=== PATIENT | male | born 1945 | race Caucasian/White ===

== ENCOUNTER → 2016-12-13 | Outpatient (CLI) | payer MEDICARE, BC | END | disposition home or self-care (01) | LOC: GRHH 14:32 | PROVIDERS: ATTEND Internal Medicine Nephrology | DX: N17.9 Acute kidney failure, unspecified (principal); N18.9 Chronic kidney disease, unspecified ==

== ENCOUNTER → 2016-12-15 | Outpatient (CLI) | payer MEDICARE | LOC: LAB.O 12-05 10:54 | PROVIDERS: ATTEND Internal Medicine Nephrology | DX: N18.4 Chronic kidney disease, stage 4 (severe) (principal) ==

== ENCOUNTER → 2017-03-27 | Outpatient (CLI) | payer MEDICARE ==
--- NOTE | 2017-03-27 17:01 | CT ---
EXAM DESCRIPTION: Abdomen/Pelvis w/o Contrast: Computed Tomography. CLINICAL HISTORY: Chronic prostatitis COMPARISON: None. TECHNIQUE: Spiral-axial scans 5.0 mm intervals through the abdomen and pelvis without oral or IV contrast. Coronal and sagittal 2.0 mm reconstructions. Total Exam DLP: 889.84 mGy-cm. This exam was performed according to our departmental CT dose-optimization program which includes automated exposure control, adjustment of the mA and/or kV according to patient size and/or use of iterative reconstruction technique; to reduce radiation dose to as low as reasonably achievable (ALARA). FINDINGS: Lung bases and pleura: Mosaic density in the lung bases with scarring in the inferior lingula. Liver, stomach, spleen, and adrenal glands: Right lobe of the liver is 19 cm craniocaudally. Diffuse low-density with no focal lesions. Calcifications in the liver and spleen. Spleen is not enlarged. Normal density and size of the adrenal glands. Stomach is unremarkable. Pancreas, Gallbladder, and Ducts: Gallbladder visualized. Fatty infiltration of the pancreas. Duct is negative. Kidneys and Ureters: Unremarkable. Pararenal fascial thickening is physiologic. Mesentery: no free fluid or free air. No significant mesenteric stranding. Aorta: Moderate atherosclerotic calcification more distally with narrowing of the lumen and the bilateral common iliac artery lumens proximally. Small Bowel: Mostly gas proximally but no significant distention. Radiodense material in different segments. No obstruction. Terminal Ileum/Cecum: Cecum distended by fecal material. TI is unremarkable. Appendix is not seen. Colon: Diffuse fecal matter diverticula in the descending colon and sigmoid. Minimal redundancy of the sigmoid. No complications. Pelvic Organs: Calcifications in the inferior prostate gland. There are calcifications in the mid gland. Impression on the base of the urinary bladder. No dominant pelvic lymph nodes or free fluid in the anterior peritoneal reflection. No radiodense stones in the urinary bladder. Spine and Bony Pelvis: Transitional vertebra is present in the a lumbarized S1 segment assuming that the most inferior rib pair is the 12th rib pair at T12 with rudimentary S1-2 disc. Minimal facet degeneration in the lumbar spine. Trace dextroscoliosis. Minimal bilateral hip joint space narrowing. Abdominal Wall/Back Soft Tissues: There is diffuse edema subcutaneous adipose tissue upper thighs abdomen and low back. Minimal diastases at the umbilicus but no bowel in the hernia. Bilateral fatty inguinal hernias not containing bowel. IMPRESSION: 1. Prostate gland is enlarged impressing on the base of the urinary bladder. Calcifications in the mid and inferior gland. No abnormal pelvic lymph nodes and no fluid in the anterior peritoneal reflection. 2. Mild to moderate hepatomegaly with fatty infiltration. This can be a result of obesity or a variety of metabolic and toxic conditions. Multiple small calcifications in the liver and spleen. 3. Moderate atherosclerotic calcification of the aorta with narrowing of the distal lumen. 4. Transitional lumbosacral segment is present to be a lumbarized S1. This can be confirmed with AP lateral images of the thoracic spine for rib counting purposes. 5. Diffuse subcutaneous adipose tissue edema. Bilateral fatty inguinal hernias not containing bowel. Electronically signed by: Ben Oseguera MD 03/27/2017 5:00 PM BRAKE PRESS OPERATOR
== END | disposition home or self-care (01) ==
LOC: CT 11:00
PROVIDERS: ATTEND Urology
DX: N41.1 Chronic prostatitis (principal); N39.46 Mixed incontinence

== ENCOUNTER → 2017-04-25 | Outpatient (CLI) | payer MEDICARE | LOC: LAB.O 13:07 | PROVIDERS: ATTEND Psychiatry & Neurology Neurology | DX: M45.0 Ankylosing spondylitis of multiple sites in spine (principal); M15.0 Primary generalized (osteo)arthritis; M81.8 Other osteoporosis without current pathological fracture; R53.83 Other fatigue; E11.9 Type 2 diabetes mellitus without complications; M33.90 Dermatopolymyositis, unspecified, organ involvement unspecified; F81.9 Developmental disorder of scholastic skills, unspecified; M79.A9 Nontraumatic compartment syndrome of other sites; M10.9 Gout, unspecified; E03.9 Hypothyroidism, unspecified; G60.3 Idiopathic progressive neuropathy; M35.1 Other overlap syndromes; M79.1 Myalgia; M35.3 Polymyalgia rheumatica; M33.22 Polymyositis with myopathy; G61.81 Chronic inflammatory demyelinating polyneuritis; M54.13 Radiculopathy, cervicothoracic region; M54.16 Radiculopathy, lumbar region; I73.00 Raynaud's syndrome without gangrene; G25.89 Other specified extrapyramidal and movement disorders; M06.9 Rheumatoid arthritis, unspecified; D86.9 Sarcoidosis, unspecified; M35.00 Sjogren syndrome, unspecified; M32.10 Systemic lupus erythematosus, organ or system involvement unspecified; I77.9 Disorder of arteries and arterioles, unspecified ==

== ENCOUNTER → 2017-05-21 | Outpatient (CLI) | payer MEDICARE | LOC: SL 20:20 | PROVIDERS: ATTEND Internal Medicine | DX: G47.33 Obstructive sleep apnea (adult) (pediatric) (principal) ==

== ENCOUNTER → 2017-06-08 | Outpatient (CLI) | payer MEDICARE | LOC: LAB.O 13:49 | PROVIDERS: ATTEND Psychiatry & Neurology Neurology | DX: G70.00 Myasthenia gravis without (acute) exacerbation (principal); G72.9 Myopathy, unspecified; G60.3 Idiopathic progressive neuropathy; I77.9 Disorder of arteries and arterioles, unspecified; D64.9 Anemia, unspecified; R53.83 Other fatigue; M79.A9 Nontraumatic compartment syndrome of other sites; R51 Headache ==

== ENCOUNTER → 2018-01-27 | Day surgery (SDC) | payer MEDICARE ==
[~2018-01-27] MED LIST: BRIMONIDINE 0.2% OPHTH DROPS RIGHT_EYE ONE; DEXAMETHASONE 0.1% OPHTH SOL 1 DROP RIGHT_EYE ONE; LIDOCAINE 1% MPF 5 ML VIAL INJ ONE; MIDAZOLAM INJ 2 MG/2 ML VIAL ONE; PROPARACAINE 0.5% OPHTH SOL 15 ML BTTL ONE; TOBRAMYCIN SULF 0.3 % OPHT SOL 1 DROP RIGHT_EYE ONE; TROP 1%/CYCLOPEN 1%/PHENYL 2% DROPS ONE
== END ==
LOC: AMB 05:35
PROVIDERS: ATTEND Ophthalmology
DX: G25.9 Extrapyramidal and movement disorder, unspecified (principal); I10 Essential (primary) hypertension; I48.91 Unspecified atrial fibrillation; G62.9 Polyneuropathy, unspecified; E66.9 Obesity, unspecified
CPT/HCPCS: 00142; 66984; J2250

== ENCOUNTER → 2018-01-29 | Outpatient (CLI) | payer MEDICARE ==
--- NOTE | 2018-02-03 07:26 | MRI ---
EXAM: Lumbar Spine w/o Contrast CLINICAL HISTORY: M51.15 COMPARISON STUDY: None TECHNICAL: Noncontrast MRI images of the lumbar spine were performed in multiple planes and multiple sequences. IV contrast was not given. FINDINGS: There is a 3 mm retrolisthesis of L2 on L3. There are 6 lumbar type vertebral bodies in the last is thought to be S1. There is no fracture. There are no bone marrow signal changes to indicate edema or inflammation. The conus medullaris has a normal configuration. L1-2: No disc herniation, canal stenosis or neurologic impingement. There are mild degenerative changes of facets. L2-3: 3 mm spondylolisthesis. Minimal central annular bulge. Disc protrusions extend laterally into each exiting foramina 3 or 4 mm. The nerve roots exit above the disc protrusions without visible impingement. There are moderate degenerative changes of facets with fluid in both facet joints. L3-4 and L4-5 show mild diffuse annular bulges and 3-4 mm lateral disc protrusions that do not compress the exiting nerve roots. There are moderate degenerative changes of the facets and moderate ligamentum flavum hypertrophy. L5-S1: No disc herniation, canal stenosis or neurologic impingement. Degenerative changes of facets are present with fluid in the left facet. IMPRESSION: 1. No extruded disc herniation, canal stenosis or neurologic impingement at any level. 2. 3 mm retrolisthesis of L2-3. 3. 3 to 4 mm lateral disc protrusions at most levels do not cause visible impingement of the nerve roots. 4. Moderate degenerative changes of the facets. Electronically signed by: Chris Alonzo MD 02/03/2018 7:25 AM MICROSTRATEGY DEVELOPER
== END ==
LOC: MRI 12:00
PROVIDERS: ATTEND Psychiatry & Neurology Neurology
DX: M51.16 Intervertebral disc disorders with radiculopathy, lumbar region (principal)

== ENCOUNTER 2018-02-10 05:48 | Day surgery (SDC) | payer MEDICARE ==
[2018-02-10] MEDS ORDERED: TROP 1%/CYCLOPEN 1%/PHENYL 2% DROPS ONE (10:47)
[2018-02-10] MEDS ORDERED: PROPARACAINE 0.5% OPHTH SOL 15 ML BTTL ONE (10:47)
[2018-02-10] MEDS ORDERED: MIDAZOLAM INJ 2 MG/2 ML VIAL ONE (11:25)
[2018-02-10] MEDS ORDERED: LIDOCAINE 1% MPF 5 ML VIAL INJ ONE (12:31)
[2018-02-10] MEDS ORDERED: BRIMONIDINE 0.2% OPHTH DROPS LEFT_EYE ONE (12:32)
[2018-02-10] MEDS ORDERED: TOBRAMYCIN SULF 0.3 % OPHT SOL 1 DROP LEFT_EYE ONE (12:32)
[2018-02-10] MEDS ORDERED: DEXAMETHASONE 0.1% OPHTH SOL 1 DROP LEFT_EYE ONE (12:32)
== END 2018-02-10 13:25 | disposition home or self-care (01) ==
LOC: AMB 05:48
PROVIDERS: ATTEND Ophthalmology
DX: H25.12 Age-related nuclear cataract, left eye (principal); I48.91 Unspecified atrial fibrillation; I10 Essential (primary) hypertension; E66.9 Obesity, unspecified; I89.0 Lymphedema, not elsewhere classified; N41.1 Chronic prostatitis; Z87.891 Personal history of nicotine dependence
CPT/HCPCS: 00142; 66984; J2250

== ENCOUNTER → 2018-08-27 | Outpatient (CLI) | payer MEDICARE | LOC: GMAM 14:37 → EDSTATUS 15:31 | PROVIDERS: ATTEND Family Medicine | DX: E53.8 Deficiency of other specified B group vitamins (principal); D50.9 Iron deficiency anemia, unspecified; E29.1 Testicular hypofunction; I10 Essential (primary) hypertension; E55.9 Vitamin D deficiency, unspecified ==

== ENCOUNTER 2018-11-07 19:43 | Emergency (ER) | payer MEDICARE ==
[2018-11-07 21:32] VITALS: O2SAT 96
[2018-11-07 23:26] VITALS: BP 109/68; TEMP 97.4
== END 2018-11-07 23:15 | disposition home or self-care (01) ==
LOC: ER 19:43
DX: E87.1 Hypo-osmolality and hyponatremia (principal); E87.5 Hyperkalemia; R33.9 Retention of urine, unspecified; J44.9 Chronic obstructive pulmonary disease, unspecified; I48.91 Unspecified atrial fibrillation; I50.9 Heart failure, unspecified; I11.0 Hypertensive heart disease with heart failure; Z87.891 Personal history of nicotine dependence; Z79.899 Other long term (current) drug therapy

== ENCOUNTER 2018-11-12 10:55 | Inpatient (IN) | payer MEDICARE ==
[2018-11-12] MEDS ORDERED: SOD CHL 3% *HYPERTONIC* 500ML 200 ML IVS ONE (11:11)
[2018-11-12] MEDS ORDERED: MAGNESIUM SULFATE PREMIX 2GM 2 GM in PREMIX BAG 1 BAG IVPB ONE (11:13)
[2018-11-12] MEDS ORDERED: MAGNESIUM SULFATE PREMIX 2GM 50 ML IVPB ONE (11:15)
--- NOTE | 2018-11-12 11:30 | ED.PDOC ---
History of Present Illness - General Chief Complaint: General Stated Complaint: Abnormal lab values Time Seen by Provider: 11/12/18 11:00 Source: patient, family Exam Limitations: no limitations - History of Present Illness Initial Comments: the patient is a 73-year-old male presenting to the emergency room secondary to persistent hyponatremia. He is largely asymptomatic from it at this point. He was seen here Saturday for the same issue however we were unable to obtain IV access after multiple attempts. He deferred further attempts and elected to attempt correction as an outpatient with diuresis and reduction in his gabapentin dosage as well as a reduction in his bladder spasm medication to allow him to urinate better. Sodium is persistently low today so he was sent over for admission and correction.he does report an improvement in his urination. He is able to urinate a lot larger quantities on the lower dose of his bladder spasm medication. He does still have chronic persistent 3+ lower extremity edema. No new symptoms however. Timing/Duration: unsure - probably several months duration Severity: moderate Improving Factors: nothing Worsening Factors: nothing Associated Symptoms: malaise - chronic, weakness - chronic Allergies/Adverse Reactions: Allergies NO KNOWN ALLERGY Allergy (Verified 02/10/18 13:28) Home Medications: Ambulatory Orders Arformoterol Tartrate Nebs [Brovana Nebs] 15 mcg NEB BID 11/07/18 Cephalexin Monohydrate [Keflex] 500 mg PO BEDTIME 11/07/18 Cholecalciferol [Decara] 50,000 unit PO WKLY 11/07/18 Dabigatran Etexilate Mesylate [Pradaxa] 150 mg PO BID 11/07/18 Diltiazem HCl Coated Beads [Cartia Xt] 240 mg PO DAILY 11/07/18 Dutasteride-Tamsulosin HCl [Jessie] 1 cap PO DAILY 11/07/18 Ferrous Sulfate 325 mg PO DAILY 11/07/18 Fluticasone Prop 0.05% Nasal [Flonase Nasal Mcdougal] 50 mcg NA BID 11/07/18 Furosemide Tab [Lasix Tab] 40 mg PO DAILY #5 tab 11/07/18 Gabapentin 300 mg PO Q8HR #90 cap 11/07/18 Gabapentin [Neurontin] 800 mg PO TID 11/07/18 Ibuprofen [Ibu] 400 mg PO PRN 11/07/18 Methadone HCl [Methadone] 20 mg PO BID 11/07/18 Mirabegron [Myrbetriq] 25 mg PO DAILY #30 tab 11/07/18 Mirabegron [Myrbetriq] 50 mg PO DAILY 11/07/18 Nifedipine [Procardia Xl] 90 mg PO DAILY 11/07/18 Oxycodone HCl [Oxycodone HCl ER] 240 mg PO DAILY 11/07/18 Potassium Chloride Tab [K-Dur] 20 meq PO BID 11/07/18 Simvastatin [Zocor] 20 mg PO DAILY 11/07/18 Tizanidine HCl [Zanaflex] 2 mg PO QID 11/07/18 Review of Systems - Review of Systems Constitutional: States: malaise EENTM: States: no symptoms reported Respiratory: States: no symptoms reported Cardiology: States: no symptoms reported Gastrointestinal/Abdominal: States: no symptoms reported Genitourinary: States: see HPI Musculoskeletal: States: back pain - chronic back pain Skin: States: no symptoms reported Neurological: States: other - chronic depression and peripheral neuropathy Endocrine: States: no symptoms reported All other Systems: No Change from Baseline Past Medical History (General) - Patient Medical History Hx Stroke: No Hx of COPD: Yes Hx Cardiac Disorders: Yes - A-fib, arrhythmias Hx Congestive Heart Failure: Yes Hx Hypertension: Yes Hx Diabetes: No Surgical History: tonsillectomy - Vaccination History Hx Tetanus, Diphtheria Vaccination: No Hx Influenza Vaccination: No Hx Pneumococcal Vaccination: No - Social History Hx Tobacco Use: Yes Hx Alcohol Use: Yes - every other day Family Medical History - Family History Mother Hx Family Congestive Heart Failure: Yes Father Hx Family Cancer: Yes - lung Physical Exam - Physical Exam General Appearance: Alert, Comfortable, Frail, No apparent distress Eye Exam: bilateral normal Ears, Nose, Throat: hearing grossly normal - chronically decreased bilaterally, normal pharynx Neck: full range of motion, supple Respiratory: lungs clear, normal breath sounds, no respiratory distress, no ac cessory muscle use Cardiovascular/Chest: normal peripheral pulses, other - regular rate Peripheral Pulses: radial,right: 2+, radial,left: 2+, dorsalis pedis,right: 2+, dorsalis pedis,left: 2+ Gastrointestinal/Abdominal: non tender - morbidly obese, soft Rectal Exam: deferred Back Exam: other - no evidence of acute trauma but he does have chronic lower back discomfort palpation diffusely Extremity: normal range of motion - limited by edema, non-tender, pedal edema - 3+ to bilateral lower extremities with some weeping areas Neurologic: hide shaker II-XII nml as tested, alert, normal mood/affect, oriented x 3, other - chronic peripheral neuropathy Skin Exam: other - chronic stasis dermatitis changes from weeping peripheral neuropathy to bilateral lower extremities. Comments: Vital Signs - 24 hr 11/12/18 11:00 Temperature 96.9 F L Pulse Rate [ 71 Left Radial] Respiratory 20 Rate Blood Pressure 101/69 [Left Arm] O2 Sat by Pulse 98 Oximetry Progress - Progress Progress: 11/12/18 11:35 the patient is a 73-year-old male presenting to emergency room with significant long-standing hyponatremia. This is likely multifactorial. He has failed outpatient diuresis. This does appear to be a mildly hypervolemic hypo- osmolar hyponatremia. Due to failure to correct with gentle diuresis, the patient is going to be admitted for correction slowly with 3% saline. He will need to have labs checked after the first 200 cc. It may be beneficial as well to check a magnesium level, cortisol level and a TSH at that time. Continue telemetry monitoring. He did have some significant urinary retention at his visit last week. This appears to be improved with a lower dose of his bladder spasm medication. His urine output does need to be followed. We did also reduce the gabapentin to 300 mg 3 times a day on Saturday in an attempt to help reduce his peripheral edema. he does have at least 5 or 6 other medications that may be contributing to his peripheral edema. He will need compression wraps to the lower extremities several times a day to help reduce edema as well. Admit for continued care. 11/12/18 11:40 cassandra navarro billing number [id number] - Results/Orders Results/Orders: glucose is 106. BUN is 15. Creatinine is 0.8. Sodium is 117. Chloride is 86. Bicarbonate is 18. Calcium is 8.7. Albumin is 3.4. globulin is 3.2. Liver function tests are within normal limits. White blood cell counts 8.1. H&H are 13 and 36 respectively. Platelets are 254. Departure - Departure Clinical Impression: Hyponatremia with decreased serum osmolality, Urinary retention, Peripheral edema Disposition: Admit Patient Condition: Fair Departure Forms: ED Discharge - Pt. Copy, Patient Portal Self Enrollment Diet: low salt diet Referrals: Chilango Navarro MD [Primary Care Provider] - 1-2 Weeks Home Medications: Ambulatory Orders Arformoterol Tartrate Nebs [Brovana Nebs] 15 mcg NEB BID 11/07/18 Cephalexin Monohydrate [Keflex] 500 mg PO BEDTIME 11/07/18 Cholecalciferol [Decara] 50,000 unit PO WKLY 11/07/18 Dabigatran Etexilate Mesylate [Pradaxa] 150 mg PO BID 11/07/18 Diltiazem HCl Coated Beads [Cartia Xt] 240 mg PO DAILY 11/07/18 Dutasteride-Tamsulosin HCl [Jessie] 1 cap PO DAILY 11/07/18 Ferrous Sulfate 325 mg PO DAILY 11/07/18 Fluticasone Prop 0.05% Nasal [Flonase Nasal Mcdougal] 50 mcg NA BID 11/07/18 Furosemide Tab [Lasix Tab] 40 mg PO DAILY #5 tab 11/07/18 Gabapentin 300 mg PO Q8HR #90 cap 11/07/18 Gabapentin [Neurontin] 800 mg PO TID 11/07/18 Ibuprofen [Ibu] 400 mg PO PRN 11/07/18 Methadone HCl [Methadone] 20 mg PO BID 11/07/18 Mirabegron [Myrbetriq] 25 mg PO DAILY #30 tab 11/07/18 Mirabegron [Myrbetriq] 50 mg PO DAILY 11/07/18 Nifedipine [Procardia Xl] 90 mg PO DAILY 11/07/18 Oxycodone HCl [Oxycodone HCl ER] 240 mg PO DAILY 11/07/18 Potassium Chloride Tab [K-Dur] 20 meq PO BID 11/07/18 Simvastatin [Zocor] 20 mg PO DAILY 11/07/18 Tizanidine HCl [Zanaflex] 2 mg PO QID 11/07/18 Decision To Admit - Decistion To Admit Decision to Admit Reason: Medical Nature Decision to Admit Date: 11/12/18 Decision to Admit Time: 11:39
--- NOTE | 2018-11-12 12:42 | RAD ---
Study: Single Frontal Radiograph of the Chest. Indication:hyponatremia Comparison: January 25, 2012 Impression: Cardiomegaly with mild interstitial edema and central pulmonary vascular congestion. Lung volumes low. No consolidation, pleural effusion or pneumothorax. Calcified mediastinal granulomas suspected. No acute osseous abnormality. Electronically signed by: Abdoul Mckeon MD 11/12/2018 12:41 PM CDT
--- NOTE | 2018-11-12 12:43 | HP ---
SUPERVISING PHYSICIAN: Azar Le M.D. CHIEF COMPLAINT: Abnormal lab values. HISTORY OF PRESENT ILLNESS: This is a 73 year-old male patient who has a longstanding history of lymphedema and Chronic Inflammatory Demyelinating Polyneuropathy. He saw Dr. Rahman, neurologist, on this past and had some lab work done. On Saturday he was called and told to come to the Emergency Room due to his low sodium. He came to the Emergency Room and his sodium was 119. Multiple attempts to get an IV were started and he was to be admitted at that time, but he refused and left against medical advice because he did not want to have any more IV sticks. The lab work was repeated today and Dr. Fink, his primary care physician, called him with a sodium that was 117 and he was to come to the Emergency Room for a workup. In the Emergency Room he was given a small amount of hypertonic saline and then switched to normal saline. His treatment was based off of his lab that was done yesterday. His said he had been acting "off" for several days and had a difficult time remembering dates and events. He also had weakness and leg cramps. He did have a chest x- ray that showed cardiomegaly with mild interstitial edema and central pulmonary vascular congestion with low lung volumes. No consolidation, pleural effusion or pneumothorax. Calcified mediastinal granulomas are suspected and no acute osseous abnormality. He was then admitted to the floor for treatment of his hyponatremia. It is to be noted that he also said that earlier in the week he had a difficult time urinating but has not had problems in the last day or so and his urine volume is up. He does have a history of chronic prostatitis. PAST MEDICAL HISTORY: 1. Chronic inflammatory demyelinating polyneuropathy. 2. Lymphedema. 3. Chronic obstructive pulmonary disease. 4. Chronic prostatitis on Keflex daily. 5. Hypertension. 6. Chronic pain syndrome mostly due to his low back pain. 7. Atrial fibrillation that was diagnosed at age 21 status post ablation. 8. Spinal deterioration contributing to chronic pain syndrome. 9. 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 PAST SURGICAL HISTORY: 1. Tonsillectomy. 2. Bilateral cataract removal. 3. Bilateral knee replacement. 4. Cardiac ablation in 2016. 5. Multiple skin cancers removed from the nose and from the ear. OUTPATIENT MEDICATIONS: 1. Procardia. 2. Gabapentin. 3. Potassium chloride. 4. Simvastatin. 5. Fluticasone nasal spray. 6. Pradaxa. 7. Zanaflex. 8. Myrbetriq. 9. Keflex. 10. Jessie. 11. Ferrous sulfate. 12. Vitamin D. 13. Ibuprofen. 14. Methadone. 15. Oxycodone. 16. Fetzima which the patient has presently not been taking for several weeks but was recently decreased to 20 mg daily, but he has not started that. ALLERGIES: NO KNOWN DRUG ALLERGIES. SOCIAL HISTORY: He is . He has 1 child. He has a past history of cigarette smoking but he quit in 1984. He drinks alcoholic beverages several times weekly. He denies any illicit drug use. REVIEW OF SYSTEMS: GENERAL: Positive for fatigue. Negative for fever or weight changes. HEENT: Negative for sinus symptoms, ear pain, vision changes or sore throat. RESPIRATORY: Negative for coughing, wheezing or shortness of breath. CARDIAC: Negative for chest pain, palpitations or tachycardia. GASTROINTESTINAL: Negative for abdominal pain, nausea, vomiting, diarrhea or constipation. GENITOURINARY: Positive for some urinary retention but not as bad as last week. He also had a history of chronic prostatitis. Otherwise denies hematuria, polyuria or dysuria. MUSCULOSKELETAL: Positive for chronic back pain. Negative for arthralgias or myalgias. SKIN: Negative for lesions or rashes. NEUROLOGIC: Positive for peripheral neuropathy. Negative for seizures or headaches. PSYCHIATRIC: Positive for depression. Negative for anxiety. PHYSICAL EXAMINATION: VITAL SIGNS: Temperature 98, heart rate 74, blood pressure 115/74, respiratory rate 16, O2 sat 98% on room air. GENERAL: This is a 73 year-old male patient who is sitting in his chair in his hospital room. He is in no acute distress. HEENT: Normocephalic and atraumatic. Pupils are equal and reactive. Oropharynx is clear. NECK: Supple without mass. RESPIRATORY: Essentially clear to auscultation bilaterally. CHEST: There is equal rise and fall of the chest with inspiration and expiration. CARDIOVASCULAR: Regular rate and rhythm. GASTROINTESTINAL: Abdomen is soft, nondistended, non-tender. Bowel sounds are positive. EXTREMITIES: Bilateral pedal pulses are palpable at +2. He does have +2 pedal edema bilaterally. NEUROLOGIC: He is awake, alert and oriented times three. Cranial nerves II-XII are grossly intact. LABORATORY: Labs and films are as per the History of Present Illness. ASSESSMENT: 1. Hyponatremia most likely hypervolemic and hyperosmolar, otherwise of unknown etiology. It has progressively worsened over the last 4 to 5 days. 2. History of Chronic Inflammatory Demyelinating Polyneuropathy being treated by Dr. Rahman, neurologist. 3. Chronic obstructive pulmonary disease with no acute exacerbation. 4. Chronic pain syndrome on multiple narcotics managed by Dr. Fink. 5. Lymphedema of unknown etiology. 6. Hypertension. 7. Chronic prostatitis. 8. History of atrial fibrillation since he was in his 20s. He did have an ablation in 2016. 9. Peripheral neuropathy. PLAN: The patient has been admitted to the hospital. He will continue on normal saline overnight and I will recheck his labs in the morning. His home medications have been restarted with the following noted exceptions: He was originally on Gabapentin 900 mg 3 times daily and it was decreased on Saturday from the E. R. to 300 t.i.d. I have started it at 600 mg t.i.d. His original dosing of Myrbetriq at 50 mg will be continued. He is on Pradaxa for his atrial fibrillation which should also suffice for his DVT prophylaxis. He will get his Methadone scheduled twice daily and he will have his Oxycodone as needed as well as his Tizanidine will be as needed. I started him on a PPI for ulcer prophylaxis. I will not restart his Fetzima. He had been off the 40 mg for several weeks. Last he was to be restarted on it at 20 mg. He had not gotten his prescription filled so I will hold on that until he is discharged. Dr. Fink can start that in the outpatient setting. He is on the night monitor. He will also have neuro checks. He has seen Dr. Young, sleep technician, in the past and it may be helpful to see him as an outpatient. He is on several pulmonary nebulizer treatments but he does not presently take them. I have started him on p.r.n. and scheduled Xopenex and he can followup with Dr. Leyva, professional golf tournament player, for those medications, but he has had no complaints of breathing issues. Hopefully he can be discharged in the next 48 hours with close followup with Dr. Fink. #[id number] [facility]
[2018-11-12] MEDS ORDERED: LEVALBUTEROL NEBS 1.25 MG/3 ML VIAL INH PRN (12:49)
[2018-11-12] MEDS ORDERED: SODIUM CHLORIDE 0.9% (FLUSH) 10 ML SYG IV PRN (12:49)
[2018-11-12] MEDS ORDERED: ACETAMINOPHEN 325 MG TAB PO PRN (12:49)
[2018-11-12] MEDS ORDERED: ONDANSETRON INJ 4 MG/2 ML VIAL IV PRN (12:49)
[2018-11-12] MEDS ORDERED: IV SET AND CAP CHANGE INJ INJ SCH (13:00)
[2018-11-12] MEDS: LEVALBUTEROL NEBS 1.25 MG/3 ML VIAL INH SCH ×2 (16:38→22:47)
[2018-11-12] MEDS: SODIUM CHLORIDE 0.9% 1000ML 1,000 ML IVS PRN (17:52)
[2018-11-12] MEDS ORDERED: tiZANidine 4 MG TAB PO PRN (18:37)
[2018-11-12] MEDS ORDERED: IBUPROFEN 400 MG TAB PO PRN (18:37)
[2018-11-12] MEDS ORDERED: PANTOPRAZOLE SODIUM TAB 40 MG PO ONE (18:58)
[2018-11-12] MEDS ORDERED: DABIGATRAN ETEXILATE 75 MG CAP PO ONE (19:00)
[2018-11-12] MEDS: NON-FORMULARY MEDICATION 1 EA MIS (Dabigatran Etexilate Mesylate [Pradaxa] 150 MG) PO SCH (20:30)
[2018-11-12] MEDS: METHADONE HCL 10 MG TAB PO SCH (20:30)
[2018-11-12] MEDS: CEPHALEXIN MONOHYDRATE 500 MG CAP PO SCH (20:31)
[2018-11-12] MEDS: GABAPENTIN 300 MG CAP PO SCH (20:31)
[2018-11-12] MEDS: SODIUM CHLORIDE 0.9% (FLUSH) 10 ML SYG IV SCH (20:32)
[2018-11-13] MEDS: SODIUM CHLORIDE 0.9% 1000ML 1,000 ML IVS PRN ×3 (01:53→23:22)
[2018-11-13] MEDS: PANTOPRAZOLE SODIUM TAB 40 MG PO SCH (05:45)
[2018-11-13] MEDS ORDERED: HYDROCORT 2.5% CRM (ANUSOL HC) 30 GM TUBE PR PRN (06:13)
[2018-11-13] MEDS ORDERED: MAGNESIUM SULFATE PREMIX 2GM 2 GM in PREMIX BAG 1 BAG IVPB ONE ×2 (09:24→21:14)
[2018-11-13] MEDS: METHADONE HCL 10 MG TAB PO SCH ×2 (09:32→20:20)
[2018-11-13] MEDS: NIFEdipine XL 90 MG TAB PO SCH (09:32)
[2018-11-13] MEDS: GABAPENTIN 300 MG CAP PO SCH ×3 (09:32→20:19)
[2018-11-13] MEDS: LEVALBUTEROL NEBS 1.25 MG/3 ML VIAL INH SCH ×4 (09:35→19:21)
[2018-11-13] MEDS: POLYETHYLENE GLYCOL 3350 17 GM PCKT PO SCH (09:43)
[2018-11-13] MEDS: SODIUM CHLORIDE 0.9% (FLUSH) 10 ML SYG IV SCH ×2 (09:43→20:20)
[2018-11-13] MEDS ORDERED: MAGNESIUM SULFATE PREMIX 2GM 50 ML IVPB ONE ×2 (09:58→21:28)
[2018-11-13] MEDS: DUTASTERIDE 0.5 MG CAP PO SCH (10:14)
[2018-11-13] MEDS: DABIGATRAN ETEXILATE 75 MG CAP PO SCH ×2 (10:14→20:19)
[2018-11-13] MEDS: TAMSULOSIN 0.4 MG CAP PO SCH (10:15)
[2018-11-13] MEDS: (Mirabegron [Myrbetriq] 25 MG) PO SCH (13:11)
[2018-11-13] MEDS: NON-FORMULARY MEDICATION 1 EA MIS (Dabigatran Etexilate Mesylate [Pradaxa] 150 MG) PO SCH (13:15)
[2018-11-13] MEDS ORDERED: FUROSEMIDE INJ 40 MG/4 ML VIAL ONE (14:30)
[2018-11-13] MEDS: FUROSEMIDE INJ 40 MG/4 ML VIAL IV SCH (14:33)
--- NOTE | 2018-11-13 17:09 | PN ---
DATE: 11/13/18 SUPERVISING PHYSICIAN: Azar Le M.D. SUBJECTIVE: The patient is sitting up in his chair in his room. He has no complaints other than he would like to go home. We discussed the need for his sodium to get somewhat higher. He realized he needs to be on a fluid restriction and we would recheck his lab in the afternoon to make sure it is improving. OBJECTIVE: VITAL SIGNS: Temperature 98.2, heart rate 75, blood pressure 120/86, respiratory rate 18, O2 sat 97% on 3 liters nasal cannula. I's and O's show an oral intake of only 730 mL with an 830 mL positive I and O. RESPIRATORY: Essentially clear to auscultation bilaterally. CARDIAC: Regular rate and rhythm. GASTROINTESTINAL: Abdomen is soft, nondistended, non-tender. Bowel sounds are positive. EXTREMITIES: +2 to 3 pedal edema to his lower extremities. Bilateral pedal pulses are palpable at +2. NEUROLOGIC: He is awake, alert and oriented times three. LABORATORY: WBC is 6, hemoglobin 14.2, hematocrit 43.1. Sodium is slightly improved to 121 with potassium 4.3, chloride 90, carbon dioxide 18, serum osmolality is 243.1. Cortisol is pending. All other labs and films have been reviewed via the EMR. ASSESSMENT: 1. Hyponatremia most likely hypervolemic and hyperosmolar, otherwise of unknown etiology. It has progressively worsened over the last 4 to 5 days. 2. History of Chronic Inflammatory Demyelinating Polyneuropathy being treated by Dr. Rahman, neurologist. 3. Chronic obstructive pulmonary disease with no acute exacerbation. 4. Chronic pain syndrome on multiple narcotics managed by Dr. Fink. 5. Lymphedema of unknown etiology. 6. Hypertension. 7. Chronic prostatitis. 8. History of atrial fibrillation since he was in his 20s. He did have an ablation in 2016. 9. Peripheral neuropathy. PLAN: We will continue present supportive care. He will continue with normal saline and I have given him some magnesium supplementation. His BMP and magnesium will be rechecked this afternoon. Hopefully I can discontinue his saline. I have attempted to call Dr. Young, pet care attendant, to get his recommendations on the patient's plan of care but I have been unable to reach him. I will attempt to call him later this afternoon. I will also give him an extra dose of Lasix and recheck his lab and chest x-ray in the morning. Hopefully he can be discharged once his sodium gets close to 125 with a close followup with Dr. Fink, which he has an appointment on 11/17/18. He will need to see Dr. Young as a consultation after discharge. Will continue to monitor closely and follow as needed. #[id number] [facility]
[2018-11-13] MEDS ORDERED: SIMVASTATIN 20 MG TAB ONE (18:57)
[2018-11-13] MEDS: CEPHALEXIN MONOHYDRATE 500 MG CAP PO SCH (20:19)
[2018-11-13] MEDS ORDERED: SIMVASTATIN 20 MG TAB PO SCH (21:00)
[2018-11-13] MEDS ORDERED: POTASSIUM CHLORIDE 20 MEQ TAB PO ONE (21:14)
[2018-11-14] MEDS: PANTOPRAZOLE SODIUM TAB 40 MG PO SCH (06:17)
--- NOTE | 2018-11-14 06:55 | RAD ---
CHEST, TWO VIEWS, XR. 11/14/2018 6:52 AM CDT CLINICAL HISTORY: Hyponatremia. COMPARISON: Chest 11/12/2018 TECHNIQUE: Frontal and lateral chest FINDINGS: The heart is normal in size. There are bulky right hilar calcified masses compatible with remote granulomatous disease. Faint small curvilinear left basilar densities due to atelectasis. No consolidation or edema. No pleural fluid. Unremarkable soft tissues and bones. IMPRESSION: 1. Minimal left basilar atelectasis. No new acute finding. 2. Old granulomatous disease. Electronically signed by: Gertrude Ramon DO 11/14/2018 6:54 AM CDT
[2018-11-14] MEDS: LEVALBUTEROL NEBS 1.25 MG/3 ML VIAL INH SCH ×3 (08:18→16:35)
[2018-11-14] MEDS: FUROSEMIDE INJ 40 MG/4 ML VIAL IV SCH (09:33)
[2018-11-14] MEDS: NIFEdipine XL 90 MG TAB PO SCH (09:34)
[2018-11-14] MEDS: DABIGATRAN ETEXILATE 75 MG CAP PO SCH (09:34)
[2018-11-14] MEDS: GABAPENTIN 300 MG CAP PO SCH ×2 (09:34→15:29)
[2018-11-14] MEDS: POLYETHYLENE GLYCOL 3350 17 GM PCKT PO SCH (09:34)
[2018-11-14] MEDS: DUTASTERIDE 0.5 MG CAP PO SCH (09:35)
[2018-11-14] MEDS: (Mirabegron [Myrbetriq] 25 MG) PO SCH (09:35)
[2018-11-14] MEDS: METHADONE HCL 10 MG TAB PO SCH (09:35)
[2018-11-14] MEDS: TAMSULOSIN 0.4 MG CAP PO SCH (09:35)
[2018-11-14] MEDS: SODIUM CHLORIDE 0.9% (FLUSH) 10 ML SYG IV SCH (09:39)
--- NOTE | 2018-11-14 12:04 | CT ---
EXAM DESCRIPTION: Chest w/o Contrast CLINICAL HISTORY: 73 years Male, hyponatremia COMPARISON: Chest x-ray dated 14 November 2018 TECHNIQUE: Transaxial images were obtained without intravenous contrast media. Sagittal and coronal reconstruction was performed.This exam was performed according to our departmental dose-optimization program, which includes automated exposure control, adjustment of the mA and/or kV according to patient size and/or use of iterative reconstruction technique. FINDINGS: The thyroid is normal in appearance. No pathologic axillary adenopathy is observed. Calcified lymph nodes are seen scattered about the mediastinum and hilar regions. No pathologic adenopathy is seen. No pleural fluid is identified. No adrenal masses are detected. Minimal basilar interstitial fibrosis is observed. No pulmonary nodule or mass is detected. No bone abnormality is seen. IMPRESSION: Scattered calcified granulomas are observed about the hilar and mediastinal regions. The chest is otherwise unremarkable. Electronically signed by: Dvaid Ye MD 11/14/2018 12:02 PM CDT
[2018-11-14] MEDS: FUROSEMIDE INJ 20 MG/2 ML VIAL IV SCH ×2 (15:29→18:00)
--- NOTE | 2018-11-14 17:07 | PN ---
DATE: 11/14/18 SUPERVISING PHYSICIAN: Azar Le M.D. SUBJECTIVE: The patient still has a significantly low sodium. He has not had any nausea or vomiting. Again, we did discuss treatment and the plan of care, that the patient should remain in the hospital until at least his sodium is greater than 126. Although reluctant to stay in the hospital, the patient agrees to the treatment plan. OBJECTIVE: VITAL SIGNS: Temperature 97.7, pulse 63, blood pressure 127/75, respirations 18, satting 99% on room air. I's and O's show a positive balance of 3760. Weight 114.2 kg. GENERAL: The patient is resting comfortably. Appears to be in no distress and just finished a breathing treatment. CHEST: Lungs were clear to auscultation. HEART: Regular rate and rhythm. ABDOMEN: Soft, non-tender. Positive bowel sounds. EXTREMITIES: Shows extreme lymphedema bilaterally with pulses palpable at 2+. No signs of an outright infection. NEUROLOGIC: He is alert and oriented times three. LABORATORY: CBC shows a white count of 4,800, hemoglobin 12, hematocrit 35.4, platelet count 189,000. Differential shows to be without a left shift. Chemistries show sodium 121, potassium 3.7, carbon dioxide 19, BUN 8, creatinine 0.54, serum osmolality 241. Urine osmolality is pending. Urine sodium is pending. Total cortisol was normal at 18. TSH and T4 were both normal. Magnesium was low at 1.7. RADIOLOGY: CT of the chest per radiology interpretation shows scattered calcified granulomas observed about the hilar and mediastinal regions. The chest showed to be unremarkable. ASSESSMENT: 1. Hyponatremia most likely hyponatremia with a hypervolemic and hyperosmolar presentation, uncertain etiology, but more likely related to chronic lymphedema showing progressively worsened over the last 4 to 5 days requiring more aggressive management with IV Lasix and fluid restrictions to correct underlying hyponatremia with the patient currently not being symptomatic. 2. History of Chronic Inflammatory Demyelinating Polyneuropathy followed by Dr. Rahman, neurologist. 3. Chronic obstructive pulmonary disease with no acute exacerbation. 4. Chronic pain syndrome on multiple narcotics managed by Dr. Fink. 5. Lymphedema of unknown etiology. 6. Hypertension. 7. Chronic prostatitis. 8. History of atrial fibrillation since he was in his 20s. He did have an ablation in 2016. 9. Peripheral neuropathy. PLAN: Will continue to follow the patient's labs as we give him Lasix every 6 hours at 20 mg[address] After talking with Dr[address] Young, he recommended we diurese him off fairly aggressively and continue with IV fluids to include normal saline at 125 an hour. Once the patient is showing improvement with at least a sodium greater than 125 to 126, hopefully will transition to outpatient management. Will continue to follow his output. He does remain on DVT prophylaxis as per protocol. Until we can transition to outpatient management will continue to monitor and treat as needed. #[id number] [facility]
[2018-11-14 19:33] VITALS: BP 112/71; TEMP 98; O2SAT 96
--- NOTE | 2018-11-15 22:00 | DS ---
SUPERVISING PHYSICIAN: Azar Le M.D. ADMISSION DIAGNOSIS: 1. Hyponatremia most likely hypervolemic and hyperosmolar, otherwise of unknown etiology. It has progressively worsened over the last 4 to 5 days. 2. History of Chronic Inflammatory Demyelinating Polyneuropathy being treated by Dr. Rahman, neurologist. 3. Chronic obstructive pulmonary disease with no acute exacerbation. 4. Chronic pain syndrome on multiple narcotics managed by Dr. Fink. 5. Lymphedema of unknown etiology. 6. Hypertension. 7. Chronic prostatitis. 8. History of atrial fibrillation since he was in his 20s. He did have an ablation in 2016. 9. Peripheral neuropathy. DISCHARGE DIAGNOSIS: 1. Hyponatremia likely due to hypervolemia and hyperosmolar presentation probably with a component secondary to chronic lymphedema then progressively worsened prior to admission but showing response to Lasix and fluid restrictions. 2. History of Chronic Inflammatory Demyelinating Polyneuropathy followed by Dr. Rahman, neurologist. 3. Chronic obstructive pulmonary disease with no acute exacerbation. 4. Chronic pain syndrome on multiple narcotics managed by Dr. Fink. 5. Lymphedema of unknown etiology. 6. Hypertension. 7. Chronic prostatitis. 8. History of atrial fibrillation since he was in his 20s. He did have an ablation in 2016. 9. Peripheral neuropathy. REASON FOR HOSPITALIZATION: This is a 73 year-old male patient who has a longstanding history of lymphedema and Chronic Inflammatory Demyelinating Polyneuropathy. He saw Dr. Rahman, neurologist, on this past and had some lab work done. On Saturday he was called and told to come to the Emergency Room due to his low sodium. He came to the Emergency Room and his sodium was 119. Multiple attempts to get an IV were started and he was to be admitted at that time, but he refused and left against medical advice because he did not want to have any more IV sticks. The lab work was repeated today and Dr. Fink, his primary care physician, called him with a sodium that was 117 and he was to come to the Emergency Room for a workup. In the Emergency Room he was given a small amount of hypertonic saline and then switched to normal saline. His treatment was based off of his lab that was done yesterday. His said he had been acting "off" for several days and had a difficult time remembering dates and events. He also had weakness and leg cramps. He did have a chest x- ray that showed cardiomegaly with mild interstitial edema and central pulmonary vascular congestion with low lung volumes. No consolidation, pleural effusion or pneumothorax. Calcified mediastinal granulomas are suspected and no acute osseous abnormality. He was then admitted to the floor for treatment of his hyponatremia. It is to be noted that he also said that earlier in the week he had a difficult time urinating but has not had problems in the last day or so and his urine volume is up. He does have a history of chronic prostatitis. LABORATORY STUDIES: White count on admission was 6,000, at discharge was 4,800. Hemoglobin and hematocrit were showing to be at 12 and 35.4 respectively with platelet count 189,000. Differential was without a left shift. Chemistries did show sodium initially of 121 on admission and at discharge was up to 122. BUN was 8, creatinine 0.54, serum osmolality was a little low at 246. TSH 3.53 with free T4 0.88. Total cortisol was 18.3. Urine osmolality was pending. Urine sodium was 37. MICROBIOLOGY: No microbiology specimens were submitted. RADIOLOGY: Chest x-ray initially on admission per radiology interpretation of a single view chest showed cardiomegaly with mild interstitial edema and central pulmonary vascular congestion. Lung volumes were low. No consolidations or pleural effusions were noted. He had a chest Ct on the morning of discharge and per radiology interpretation showed scattered calcified granulomas observed about the hilar and mediastinal regions. The chest was otherwise unremarkable. HOSPITAL COURSE: Mr. Banerjee was admitted for hyponatremia. He was put on diuretics and fluid restrictions and showed good response to treatment, although was felt to be close to his baseline levels of sodium. Dr. Young was consulted on admission and recommended that he followup with lymphedema clinic at [facility] in [place] which will be discussed at discharge on followup. The patient was very adamant about going home and after a lengthy discussion, recommendations were that the patient should probably stay another night and the patient was convinced that he was okay to go home. I called Dr. Fink and discussed the case with Dr. Fink and it was felt that if the patient was truly stable then if he was adamant about going home he could go home to have followup with home health as well as repeat laboratory studies. He was discharged home with continued Lasix and fluid restrictions. He was showing to be stable on day of discharge. PHYSICAL EXAMINATION: VITAL SIGNS: Temperature 97.7, pulse 63, blood pressure 127/75, respirations 18, satting 99% on room air. I's and O's show a positive balance of 3760. Weight 114.2 kg. GENERAL: The patient is resting comfortably. Appears to be in no distress and just finished a breathing treatment. CHEST: Lungs were clear to auscultation. HEART: Regular rate and rhythm. ABDOMEN: Soft, non-tender. Positive bowel sounds. EXTREMITIES: Shows extreme lymphedema bilaterally with pulses palpable at 2+. No signs of an outright infection. NEUROLOGIC: He is alert and oriented times three. PLAN: Mr. Banerjee was discharged after a lengthy discussion that recommendations were that he stay at least another night, but showing to be stable and after discussion with Dr. Fink he was discharged to continue with outpatient treatment with Lasix with restrictions and continue with followup labs. He was encouraged to keep his legs elevated when he was either in a chair or in bed. He was given warnings to return to the hospital should he have any worsening symptoms. He is to call Dr. Fink's office on Saturday. He has an appointment to see Dr. Young on 11/19/18 at 10:30 AM. He is also to see Dr. Fink on 11/17/18 at 2:45 PM. Arrangements were being arranged with [facility] and to have repeat laboratory studies including a BMP on Saturday after discharge. Diet at discharge was diet as tolerated with fluid restrictions of less than 1200 mL per day. Activity was to increase as per Physical Therapy. He will need followup appointments again to deal with the chronic lymphedema through [facility] in [place] with that arrangement made through Dr. Fink's office with the help of Dr. Young's office. Medications on discharge included new prescriptions for: 1. Lasix 40 mg daily for 7 days. No refills. 2. Potassium chloride 20 mEq daily, #7. No refills. All other medications prior to this hospitalization were continued, which included: 1. Ferrous sulfate 325 mg daily. 2. Ibuprofen 400 mg every 6 hours as needed. 3. Keflex 500 mg at bedtime. 4. Tizanidine 2 mg q.i.d. 5. Gabapentin 300 mg t.i.d. 6. Jessie 0.5-0.4 mg 1 daily. 7. Fetzima 40 mg daily. 8. Methadone 20 mg b.i.d. 9. Budesonide 0.5 mg b.i.d. 10. Brovana nebulizers 15 mcg nebulized b.i.d. 11. Albuterol nebulizer solution q.i.d. as needed. 12. Myrbetriq 50 mg daily. 13. Zocor 20 mg daily. 14. Flonase 50 mcg twice daily as needed in both nostrils. 15. Pradaxa 150 mg b.i.d. 16. Procardia 90 mg daily and other prescriptions as noted above. Condition on discharge was stable and fair. DISPOSITION: The patient was discharged home with continued therapy at home with physical therapy to be arranged and repeat laboratory studies. [facility][id number] [facility]
== END 2018-11-14 19:10 | disposition home or self-care (01) | DRG 641 ==
LOC: ER 10:55 → MS 12:40
PROVIDERS: ADMIT Nurse Practitioner Acute Care; ATTEND Nurse Practitioner Family
DX: E87.1 Hypo-osmolality and hyponatremia (principal); G61.81 Chronic inflammatory demyelinating polyneuritis; E87.70 Fluid overload, unspecified; R33.9 Retention of urine, unspecified; I89.0 Lymphedema, not elsewhere classified; J44.9 Chronic obstructive pulmonary disease, unspecified; G89.4 Chronic pain syndrome; I10 Essential (primary) hypertension; G62.9 Polyneuropathy, unspecified; N41.1 Chronic prostatitis; M54.5 Low back pain; Z96.653 Presence of artificial knee joint, bilateral; Z79.891 Long term (current) use of opiate analgesic; Z79.1 Long term (current) use of non-steroidal anti-inflammatories (NSAID); Z79.899 Other long term (current) drug therapy; Z87.891 Personal history of nicotine dependence

== ENCOUNTER → 2018-11-17 | Outpatient (CLI) | payer MEDICARE | LOC: GMAM 13:56 | PROVIDERS: ATTEND Family Medicine | DX: I10 Essential (primary) hypertension (principal) ==

== ENCOUNTER 2019-01-08 20:39 | Emergency (ER) | payer MEDICARE ==
[2019-01-08 21:08] VITALS: TEMP 99.6
--- NOTE | 2019-01-08 21:31 | RAD ---
EXAM: XR Chest, 1 View CLINICAL HISTORY: 73 years old Male; dyspnea. TECHNIQUE: Frontal view of the chest. COMPARISON: Frontal chest x-ray performed 11/14/[address] without intravenous contrast performed 11/14/2018. FINDINGS: LUNGS: Some progressive bibasilar atelectatic changes which appear to relate to a poor inspiratory effort. No definite new focal infiltrate or mass seen in the lungs. PLEURAL SPACE: No increasing pleural fluid. No pneumothorax. HEART: Heart stable in size. MEDIASTINUM: Stable. BONES/JOINTS: No acute bony abnormality seen. VASCULATURE: Noted again is significant calcified atherosclerotic disease and ectasia in the thoracic aorta. LYMPH NODES: Noted again are enlarged calcified mediastinal lymph nodes most consistent with prior granulomatous exposure. IMPRESSION: - No acute cardiopulmonary pathology seen and no significant interval change from a frontal chest x-ray performed 11/14/2018. - Grossly stable chronic findings including enlarged calcified mediastinal lymph nodes most consistent with prior granulomatous exposure. Clinical correlation is suggested. Thank you for allowing us to participate in the care of this patient. Electronically signed by: Jah Herrera MD 01/08/2019 9:29 PM CDT
[2019-01-08 22:02] VITALS: BP 125/69; O2SAT 92
--- NOTE | 2019-01-08 22:19 | ED.PDOC ---
History of Present Illness - General Chief Complaint: Respiratory Problem Stated Complaint: increased shortness of breath Time Seen by Provider: 01/08/19 20:53 - History of Present Illness Initial Comments: Pt w/ pmh of copd, chf, htn, chronic pain, a fib, and lymphedema presents from home for evaluation of shortness of breath. Patient says he was feeling dizzy earlier today. Says he is always short of breath, worse with exertion. No chest pain. Was admitted recently for hyponatremia. He says his legs are always swollen and that the swelling has not worsened more than usual. Allergies/Adverse Reactions: Allergies NO KNOWN ALLERGY Allergy (Verified 01/08/19 22:10) Home Medications: Ambulatory Orders Arformoterol Tartrate Nebs [Brovana Nebs] 15 mcg NEB BID 11/07/18 Cephalexin Monohydrate [Keflex] 500 mg PO BEDTIME 11/07/18 Dabigatran Etexilate Mesylate [Pradaxa] 150 mg PO BID 11/07/18 Dutasteride-Tamsulosin HCl [Jessie 0.5-0.4 mg] 1 cap PO DAILY 11/07/18 Ferrous Sulfate 325 mg PO DAILY 11/07/18 Fluticasone Prop 0.05% Nasal [Flonase Nasal [place]] 50 mcg NA BID 11/07/18 Ibuprofen [Ibu] 400 mg PO Q6H PRN 11/07/18 Methadone HCl [Methadone] 20 mg PO BID 11/07/18 Mirabegron [Myrbetriq] 50 mg PO DAILY 11/07/18 Nifedipine [Procardia Xl] 90 mg PO DAILY 11/07/18 Simvastatin [Zocor] 20 mg PO DAILY 11/07/18 Tizanidine HCl [Zanaflex] 2 mg PO QID 11/07/18 Albuterol Sulfate Nebs [Proventil Nebs] 0.083 % NEB QID PRN 11/12/18 Budesonide (Inhalation) [Budesonide] 0.5 mg INH BID 11/12/18 Gabapentin 300 mg PO TID 11/12/18 Levomilnacipran HCl [Fetzima] 40 mg PO DAILY 11/12/18 Furosemide Tab [Lasix Tab] 40 mg PO DAILY #7 tab 11/14/18 Potassium Chloride [K-Tab] 20 meq PO DAILY #7 tab 11/14/18 Review of Systems - Review of Systems Constitutional: States: no symptoms reported EENTM: States: no symptoms reported Respiratory: States: cough, short of breath Cardiology: States: edema. Denies: chest pain Gastrointestinal/Abdominal: States: no symptoms reported Genitourinary: States: no symptoms reported Musculoskeletal: States: no symptoms reported Skin: States: no symptoms reported Neurological: States: no symptoms reported Endocrine: States: no symptoms reported Hematologic/Lymphatic: States: no symptoms reported All other Systems: Reviewed and Negative Past Medical History (General) - Patient Medical History Hx Seizures: No Hx Stroke: No Hx Asthma: No Hx of COPD: Yes Hx Cardiac Disorders: Yes - A-fib, arrhythmias Hx Congestive Heart Failure: Yes Hx Pacemaker: No Hx Hypertension: Yes Hx Diabetes: No Hx Cancer: Yes - to ear and nose Hx MRSA: No Surgical History: cancer surgery, tonsillectomy, other - Vaccination History Hx Tetanus, Diphtheria Vaccination: No Hx Influenza Vaccination: No Hx Pneumococcal Vaccination: No - Social History Hx Tobacco Use: Yes Hx Alcohol Use: No Hx Substance Use: No Hx Physical Abuse: No Hx Emotional Abuse: No Family Medical History - Family History Mother Hx Family Congestive Heart Failure: Yes Father Hx Family Cancer: Yes - lung Physical Exam - Physical Exam General Appearance: Alert, Comfortable Eyes, Ears, Nose, Throat Exam: normal ENT inspection, TMs normal Neck: full range of motion, supple Respiratory: lungs clear, normal breath sounds Cardiovascular/Chest: other - severe 3+ LE edema with weeping lesions of b/l lower extremities Gastrointestinal/Abdominal: non tender, soft Rectal Exam: deferred Extremity: pedal edema, swelling Neurologic: no motor/sensory deficits, alert, oriented x 3 Skin Exam: normal color, warm/dry Progress - Progress Progress: 01/08/19 22:26 MDM Patient w/ multiple coomorbidities including chf, copd, htn, severe lymphedema presents from home c/o shortness of breath. Was recently admitted for hyponatremia. Attempted iv access and patient became very upset and verbally abusive towards staff. Was able to obtain labs with US guidance. Sodium was 124, which is similar to his most recent level. CXR w/ no acute findings. patient states that he feels well and would like to be discharged. He says he will f/u with his doctor, Dr. Fink, tomorrow. 01/08/19 22:31 - Results/Orders Results/Orders: 01/08/19 21:00 EKG STAT Laboratory Results - last 24 hr 01/08/19 01/08/19 01/08/19 21:46 21:46 21:46 WBC 12.8 H RBC 4.69 L Hgb 12.6 L Hct 39.2 L MCV 83.4 MCH 26.8 L MCHC 32.1 L RDW 16.4 H Plt Count 257 MPV 8.1 Absolute Neuts (auto) 11.70 H Absolute Lymphs (auto) 0.20 L Absolute Monos (auto) 0.80 Absolute Eos (auto) 0.00 Absolute Basos (auto) 0.00 Neutrophils % 91.7 H Lymphocytes % 1.5 L Monocytes % 6.3 Eosinophils % 0.3 L Basophils % 0.2 Sodium 124 L Potassium 5.7 H Chloride 95 L Carbon Dioxide 20 L Anion Gap 14.7 BUN 19 H Creatinine 0.94 BUN/Creatinine Ratio 20.2 H Random Glucose 91 Serum Osmolality 251.5 L* Calcium 9.8 Magnesium 1.4 L Total Bilirubin 0.7 AST 22 ALT 15 Alkaline Phosphatase 57 Troponin I < 0.02 B-Natriuretic Peptide Cancelled Serum Total Protein 7.4 Albumin 3.5 Globulin 3.9 H Albumin/Globulin Ratio 0.9 L - EKG/XRAY/CT Comments: a fib @ 103, left axis, no STEMI XRAY: chest Xray Comments: No acute findings Departure - Departure Clinical Impression: Hyponatremia Disposition: Discharge to Home or Self Care Condition: Fair Departure Forms: ED Discharge - Pt. Copy, Patient Portal Self Enrollment Instructions: Hyponatremia (DC) Referrals: Chilango Fink MD [Primary Care Provider] - 1-2 Weeks Home Medications: Ambulatory Orders Arformoterol Tartrate Nebs [Brovana Nebs] 15 mcg NEB BID 11/07/18 Cephalexin Monohydrate [Keflex] 500 mg PO BEDTIME 11/07/18 Dabigatran Etexilate Mesylate [Pradaxa] 150 mg PO BID 11/07/18 Dutasteride-Tamsulosin HCl [Jessie 0.5-0.4 mg] 1 cap PO DAILY 11/07/18 Ferrous Sulfate 325 mg PO DAILY 11/07/18 Fluticasone Prop 0.05% Nasal [Flonase Nasal [place]] 50 mcg NA BID 11/07/18 Ibuprofen [Ibu] 400 mg PO Q6H PRN 11/07/18 Methadone HCl [Methadone] 20 mg PO BID 11/07/18 Mirabegron [Myrbetriq] 50 mg PO DAILY 11/07/18 Nifedipine [Procardia Xl] 90 mg PO DAILY 11/07/18 Simvastatin [Zocor] 20 mg PO DAILY 11/07/18 Tizanidine HCl [Zanaflex] 2 mg PO QID 11/07/18 Albuterol Sulfate Nebs [Proventil Nebs] 0.083 % NEB QID PRN 11/12/18 Budesonide (Inhalation) [Budesonide] 0.5 mg INH BID 11/12/18 Gabapentin 300 mg PO TID 11/12/18 Levomilnacipran HCl [Fetzima] 40 mg PO DAILY 11/12/18 Furosemide Tab [Lasix Tab] 40 mg PO DAILY #7 tab 11/14/18 Potassium Chloride [K-Tab] 20 meq PO DAILY #7 tab 11/14/18
== END 2019-01-08 22:30 | disposition home or self-care (01) ==
LOC: ER 20:39
DX: E87.1 Hypo-osmolality and hyponatremia (principal); R06.02 Shortness of breath; I48.91 Unspecified atrial fibrillation; I50.9 Heart failure, unspecified; J44.9 Chronic obstructive pulmonary disease, unspecified; I11.0 Hypertensive heart disease with heart failure; Z87.891 Personal history of nicotine dependence; Z85.828 Personal history of other malignant neoplasm of skin; Z79.899 Other long term (current) drug therapy

== ENCOUNTER 2019-02-27 05:15 | Inpatient (IN) | payer MEDICARE ==
--- NOTE | 2019-02-27 05:31 | ED.PDOC ---
History of Present Illness - General Source: patient Exam Limitations: clinical condition - History of Present Illness Initial Comments: the patient is a 73-year-old male brought in by EMS secondary to generalized weakness. The patient apparently slipped out of his wheelchair this morning. The patient does not actually remember the fall. No evidence of new neck or head pain. The only complaint Beginning upon arrival his generalized weakness. The patient does have long- standing numerous medical issues. The patient however is a poor historian at this point most likely contributed to as well by the gabapentin, methadone and muscle relaxer that he takes at night. He does apparently have chronic hyponatremia. It appears that the last time he was here he refused to let them gain IV access to treat his hyponatremia. We are currently waiting on his 's arrival to shed more light on the events of today. he appears perfectly comfortable at rest in bed. He is moving all extremities. Speech is a little bit slowed and mentation is as well. No slurring of speech. No obvious acute sensory or motor changes at this point.when asked how long he has been weak he says a month.the patient does normally wear oxygen. the patient's reports that the patient has been a bit more confused over the last 5 or 6 days. He does normally have periods of some mild confusion given his numerous medications. The hyponatremia was never apparently corrected very far back to normal in the past. the fall from the wheelchair was actually Saturday not last night. He has been requiring increased assistance over the last 48 hours for transfers. Timing/Duration: unsure Severity: moderate Improving Factors: nothing Worsening Factors: movement Associated Symptoms: malaise, weakness <Tom Fink - Last Filed: 02/27/19 06:32> - General Source: patient, RN notes reviewed, Vital Signs reviewed, RN/MD - Dr. Thrasher - History of Present Illness Initial Comments: of note, the relates that the patient has been off of his 2-3 weeks. <Kirt Anderson - Last Filed: 02/27/19 17:08> - General Chief Complaint: General Stated Complaint: generalized weakness, fell out WC Time Seen by Provider: 02/27/19 05:21 - History of Present Illness Allergies/Adverse Reactions: Allergies NO KNOWN ALLERGY Allergy (Verified 01/08/19 22:10) Home Medications: Ambulatory Orders RX: Arformoterol Tartrate Nebs [Brovana Nebs] 15 mcg NEB BID PRN 11/07/18 RX: Cephalexin Monohydrate [Keflex] 500 mg PO BEDTIME 11/07/18 RX: Dabigatran Etexilate Mesylate [Pradaxa] 150 mg PO BID 11/07/18 RX: Dutasteride-Tamsulosin HCl [Jessie 0.5-0.4 mg] 1 cap PO DAILY 11/07/18 RX: Ferrous Sulfate 325 mg PO DAILY 11/07/18 RX: Fluticasone Prop 0.05% Nasal [Flonase Nasal [place]] 50 mcg NA BID 11/07/18 RX: Ibuprofen [Ibu] 400 mg PO Q6H PRN 11/07/18 RX: Methadone HCl [Methadone] 20 mg PO BID 11/07/18 RX: Mirabegron [Myrbetriq] 50 mg PO DAILY 11/07/18 RX: Nifedipine [Procardia Xl] 90 mg PO DAILY 11/07/18 RX: Simvastatin [Zocor] 20 mg PO DAILY 11/07/18 RX: Tizanidine HCl [Zanaflex] 2 mg PO QID 11/07/18 RX: Albuterol Sulfate Nebs [Proventil Nebs] 0.083 % NEB QID PRN 11/12/18 RX: Budesonide (Inhalation) [Budesonide] 0.5 mg INH BID PRN 11/12/18 RX: Gabapentin 300 mg PO TID 11/12/18 RX: Potassium Chloride [K-Tab] 20 meq PO DAILY #7 tab 11/14/18 Cholecalciferol [Decara] 50,000 unit PO WKLY 02/27/19 Diltiazem HCl Coated Beads [Cardizem Cd] 240 mg PO DAILY 02/27/19 RX: Oxycodone HCl 30 mg PO DAILY 02/27/19 Tamsulosin [Flomax] 0.4 mg PO QD 02/27/19 Review of Systems - Review of Systems Constitutional: States: no symptoms reported EENTM: States: no symptoms reported Respiratory: States: no symptoms reported Cardiology: States: no symptoms reported Gastrointestinal/Abdominal: States: no symptoms reported Genitourinary: States: no symptoms reported - he does apparently have a history of chronic urinary retention Musculoskeletal: States: back pain - chronic low back pain Skin: States: see HPI - chronic lymphedema with almost wartlike changes to bilateral lower extremities Neurological: States: weakness - generalized. Mildly confused currently. 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 Hx MRSA: No - Vaccination History Hx Tetanus, Diphtheria Vaccination: No Hx Influenza Vaccination: No Hx Pneumococcal Vaccination: No - Social History Hx Tobacco Use: Yes Hx Alcohol Use: No Hx Substance Use: No Hx Physical Abuse: No Hx Emotional Abuse: No <Tom Fink - Last Filed: 02/27/19 06:32> Family Medical History - Family History Mother Hx Family Congestive Heart Failure: Yes Father Hx Family Cancer: Yes - lung <Tom Fink - Last Filed: 02/27/19 06:32> Physical Exam - Physical Exam General Appearance: Alert, Comfortable, No apparent distress Eye Exam: bilateral normal Ears, Nose, Throat: hearing grossly normal, normal pharynx Neck: non-tender, supple Respiratory: normal breath sounds, no respiratory distress, no accessory muscle use Cardiovascular/Chest: other - chronic peripheral edema. He reports this is no worse than normal. Peripheral Pulses: radial,left: 2+ Gastrointestinal/Abdominal: non tender - obese, soft Rectal Exam: deferred, other - the patient does have some stage II excoriated areas to hisbuttocks. His has been doing wound care on them. Extremity: other - patient has chronic severe lymphedema with chronic skin changes related to it. Gross range of motion is limited by swelling. Neurologic: horseradish maker II-XII nml as tested, alert - but mildly stuporous, other - he knows he is at the hospital for weakness. Skin Exam: other - see above <Tom Fink - Last Filed: 02/27/19 06:32> - Physical Exam General Appearance: Comfortable, Lethargic, Well Developed, Well Nourished Eye Exam: bilateral normal Ears, Nose, Throat: hearing grossly normal, normal pharynx Neck: non-tender, supple, normal inspection Respiratory: chest non-tender, lungs clear, normal breath sounds, no respiratory distress, no accessory muscle use Cardiovascular/Chest: normal peripheral pulses, regular rate, rhythm, other Peripheral Pulses: radial,right: 2+, radial,left: 2+ Gastrointestinal/Abdominal: non tender, soft, no organomegaly Rectal Exam: other Back Exam: no CVA tenderness, no vertebral tenderness Extremity: other Neurologic: horseradish maker II-XII nml as tested, no motor/sensory deficits, other Skin Exam: warm/dry, other Lymphatic: no adenopathy <Kirt Anderson - Last Filed: 02/27/19 17:08> Progress - Results/Orders Results/Orders: chest x-ray shows no acute pathology. rapid flu is negative. <Tom Fink - Last Filed: 02/27/19 06:32> - Progress Progress: differential diagnosis: Electrolyte abnormality, CVA, A. fib, TIA among others 02/27/19 09:34 I discussed this patient at [address] Young who agreed with need for admission. He believes the patient can initially be managed here at [facility]. I have attempted to contact the hospitalist and awaiting a return c all. 02/27/19 10:38 hospitalist accepts the patient for admission. Requests repeat BMP. Kirt Anderson M.D. #[id number] - Results/Orders Results/Orders: 02/27/19 05:23 UA [URINALYSIS] Stat 02/27/19 05:30 EKG STAT 02/27/19 06:04 Sod Chl 3% *Hypertonic* 500Ml [HYPERTONIC Sodium Chloride 3% 500ml] 500 ml IVS ONCE 02/27/19 09:00 Oxygen Daily 02/27/19 09:14 Sodium Chloride 0.9% 1000ML [Ns 1000 ml] 1,000 ml IVS .QD Laboratory Results - last 24 hr 02/27/19 02/27/19 02/27/19 05:22 06:16 06:16 WBC RBC Hgb Hct MCV MCH MCHC RDW Plt Count MPV Absolute Neuts (auto) Absolute Lymphs (auto) Absolute Monos (auto) Absolute Eos (auto) Absolute Basos (auto) Neutrophils % Lymphocytes % Monocytes % Eosinophils % Basophils % PT INR PTT (SP) pCO2 pO2 HCO3 ABG pH ABG O2 Saturation ABG Base Excess ABG Deoxyhemoglobin Oxyhemoglobin % Carboxyhemoglobin % Methemoglobin % Sat Calc Total Hemoglobin Sodium 118 L* Potassium 5.8 H Chloride 89 L Carbon Dioxide 14 L* Anion Gap 20.8 H BUN 50 H Creatinine 1.19 BUN/Creatinine Ratio 42.0 H POC Glucose 91 Random Glucose 105 Serum Osmolality 250.3 L* Lactic Acid 1.7 Calcium 9.8 Magnesium Total Bilirubin 0.6 AST 20 ALT 15 Alkaline Phosphatase 61 Creatine Kinase 69 CK-MB (CK-2) 5.3 H* CK-MB (CK-2) % Not Reportable Troponin I 0.02 B-Natriuretic Peptide 222.0 H* Serum Total Protein 7.2 Albumin 3.5 Globulin 3.7 H Albumin/Globulin Ratio 0.9 L Amylase 23 L Lipase 34 02/27/19 02/27/19 02/27/19 06:16 06:16 06:16 WBC 15.1 H RBC 4.77 Hgb 13.3 L Hct 39.1 L MCV 82.0 MCH 27.9 MCHC 34.0 RDW 14.9 H Plt Count 358 MPV 8.0 Absolute Neuts (auto) 13.30 H Absolute Lymphs (auto) 0.40 L Absolute Monos (auto) 1.40 H Absolute Eos (auto) 0.00 Absolute Basos (auto) 0.00 Neutrophils % 88.0 H Lymphocytes % 2.4 L Monocytes % 9.0 Eosinophils % 0.3 L Basophils % 0.3 PT 13.2 H INR 1.32 H PTT (SP) 57.8 H* pCO2 pO2 HCO3 ABG pH ABG O2 Saturation ABG Base Excess ABG Deoxyhemoglobin Oxyhemoglobin % Carboxyhemoglobin % Methemoglobin % Sat Calc Total Hemoglobin Sodium Potassium Chloride Carbon Dioxide Anion Gap BUN Creatinine BUN/Creatinine Ratio POC Glucose Random Glucose Serum Osmolality Lactic Acid Calcium Magnesium 1.7 L Total Bilirubin AST ALT Alkaline Phosphatase Creatine Kinase CK-MB (CK-2) CK-MB (CK-2) % Troponin I B-Natriuretic Peptide Serum Total Protein Albumin Globulin Albumin/Globulin Ratio Amylase Lipase 02/27/19 07:09 WBC RBC Hgb Hct MCV MCH MCHC RDW Plt Count MPV Absolute Neuts (auto) Absolute Lymphs (auto) Absolute Monos (auto) Absolute Eos (auto) Absolute Basos (auto) Neutrophils % Lymphocytes % Monocytes % Eosinophils % Basophils % PT INR PTT (SP) pCO2 27 L pO2 95 HCO3 14.2 ABG pH 7.330 L ABG O2 Saturation 96.5 ABG Base Excess -10.0 ABG Deoxyhemoglobin 3.5 Oxyhemoglobin % 94.9 Carboxyhemoglobin % 0.6 Methemoglobin % Sat 1.0 Calc Total Hemoglobin 12.5 L Sodium Potassium Chloride Carbon Dioxide Anion Gap BUN Creatinine BUN/Creatinine Ratio POC Glucose Random Glucose Serum Osmolality Lactic Acid Calcium Magnesium Total Bilirubin AST ALT Alkaline Phosphatase Creatine Kinase CK-MB (CK-2) CK-MB (CK-2) % Troponin I B-Natriuretic Peptide Serum Total Protein Albumin Globulin Albumin/Globulin Ratio Amylase Lipase <Kirt Anderson - Last Filed: 02/27/19 17:08> Departure <Tom Fink - Last Filed: 02/27/19 06:32> - Departure Time of Disposition: 10:45 <Kirt Anderson - Last Filed: 02/27/19 17:08> - Departure Clinical Impression: Altered mental status, Fall at home, Hyponatremia Disposition: Admit Patient Condition: Fair Home Medications: Ambulatory Orders RX: Arformoterol Tartrate Nebs [Brovana Nebs] 15 mcg NEB BID PRN 11/07/18 RX: Cephalexin Monohydrate [Keflex] 500 mg PO BEDTIME 11/07/18 RX: Dabigatran Etexilate Mesylate [Pradaxa] 150 mg PO BID 11/07/18 RX: Dutasteride-Tamsulosin HCl [Jessie 0.5-0.4 mg] 1 cap PO DAILY 11/07/18 RX: Ferrous Sulfate 325 mg PO DAILY 11/07/18 RX: Fluticasone Prop 0.05% Nasal [Flonase Nasal [place]] 50 mcg NA BID 11/07/18 RX: Ibuprofen [Ibu] 400 mg PO Q6H PRN 11/07/18 RX: Methadone HCl [Methadone] 20 mg PO BID 11/07/18 RX: Mirabegron [Myrbetriq] 50 mg PO DAILY 11/07/18 RX: Nifedipine [Procardia Xl] 90 mg PO DAILY 11/07/18 RX: Simvastatin [Zocor] 20 mg PO DAILY 11/07/18 RX: Tizanidine HCl [Zanaflex] 2 mg PO QID 11/07/18 RX: Albuterol Sulfate Nebs [Proventil Nebs] 0.083 % NEB QID PRN 11/12/18 RX: Budesonide (Inhalation) [Budesonide] 0.5 mg INH BID PRN 11/12/18 RX: Gabapentin 300 mg PO TID 11/12/18 RX: Potassium Chloride [K-Tab] 20 meq PO DAILY #7 tab 11/14/18 Cholecalciferol [Decara] 50,000 unit PO WKLY 02/27/19 Diltiazem HCl Coated Beads [Cardizem Cd] 240 mg PO DAILY 02/27/19 RX: Oxycodone HCl 30 mg PO DAILY 02/27/19 Tamsulosin [Flomax] 0.4 mg PO QD 02/27/19 Decision To Admit - Decistion To Admit Decision to Admit Reason: Admit from ER Decision to Admit Date: 02/27/19 Decision to Admit Time: 08:30 <Kirt Anderson - Last Filed: 02/27/19 17:08> Addendum entered and electronically signed by Kirt Anderson MD 03/02/19 11:30: Departure - Departure Clinical Impression: Hyponatremia Altered mental status Qualifiers: Altered mental status type: transient alteration of awareness Qualified Code(s ): R40.4 - Transient alteration of awareness Fall at home Qualifiers: Encounter type: initial encounter Qualified Code(s): W19.XXXA - Unspecified fall, initial encounter Disposition: Admit Patient Condition: Fair Home Medications: Ambulatory Orders Cephalexin Monohydrate [Keflex] 500 mg PO BEDTIME 11/07/18 Dabigatran Etexilate Mesylate [Pradaxa] 150 mg PO BID 11/07/18 Dutasteride-Tamsulosin HCl [Jessie 0.5-0.4 mg] 1 cap PO DAILY 11/07/18 Ferrous Sulfate 325 mg PO DAILY 11/07/18 Ibuprofen [Ibu] 400 mg PO Q6H PRN 11/07/18 Methadone HCl [Methadone] 20 mg PO BID 11/07/18 Mirabegron [Myrbetriq] 50 mg PO DAILY 11/07/18 Nifedipine [Procardia Xl] 90 mg PO DAILY 11/07/18 Simvastatin [Zocor] 20 mg PO DAILY 11/07/18 Tizanidine HCl [Zanaflex] 2 mg PO QID 11/07/18 Gabapentin 300 mg PO TID 11/12/18 Potassium Chloride [K-Tab] 20 meq PO DAILY #7 tab 11/14/18 Cholecalciferol [Decara] 50,000 unit PO WKLY 02/27/19 Oxycodone HCl 60 mg PO Q6HR PRN 02/27/19 Tamsulosin [Flomax] 0.4 mg PO QD 02/27/19 Cholecalciferol [Vitamin D3] 50,000 unit PO WKLY 02/28/19
--- NOTE | 2019-02-27 05:58 | RAD ---
EXAM: XR Chest, 1 View CLINICAL HISTORY: The patient is 73 years old and is Male; generalized weakness TECHNIQUE: Frontal view of the chest. COMPARISON: Chest radiograph January 08, 2019 FINDINGS: LUNGS: Unremarkable. No consolidation. PLEURAL SPACE: Unremarkable. No pneumothorax. HEART: Unremarkable. No cardiomegaly. MEDIASTINUM: Unremarkable. BONES/JOINTS: Unremarkable. LYMPH NODES: Calcified mediastinal and hilar lymph nodes are present. IMPRESSION: No acute cardiopulmonary process. Electronically signed by: Jyotsna Benjamin MD 02/27/2019 5:57 AM CAMPUS PRESIDENT
[2019-02-27] MEDS ORDERED: SOD CHL 3% *HYPERTONIC* 500ML 500 ML IVS ONE (06:04)
--- NOTE | 2019-02-27 07:13 | CT ---
Study: CT of the Head. Indication: confusion, weakness general, recurrent hyponatremi Technique: Axial CT images of the head were acquired without intravenous contrast. This exam was performed according to our departmental dose-optimization program, which includes automated exposure control, adjustment of the mA and/or kV according to patient size and/or use of iterative reconstruction technique. Comparison: None. Findings: No acute ischemia, acute hemorrhage, mass, mass effect, midline shift, or extra-axial fluid collection identified by CT. Ventricles are normal in configuration without hydrocephalus. Patchy hypoattenuation of the periventricular and subcortical white matter noted. This is nonspecific but most consistent with chronic microvascular ischemic change. Global parenchymal volume loss and intracranial atherosclerosis noted as well. 3.4 cm ovoid well marginated lesion at the inferior margin of the right maxillary sinus, likely associated with the dentition. Chronic mild erosive change of the posterior alveolar ridge suspected. Mastoid air cells are adequately aerated. Osseous structures and soft tissues are unremarkable. Impression: No acute intracranial abnormality by CT. Senescent changes. 3.4 cm likely chronic lesion associated with the right maxillary sinus floor as well as the alveolar ridge indentation as above. ENT consultation recommended. Electronically signed by: Abdoul Mckeon MD 02/27/2019 7:11 AM [employer] OPERATOR
[2019-02-27] MEDS ORDERED: MORPHINE SULFATE INJ 10 MG/ML VIAL IV ONE (07:28)
[2019-02-27] MEDS ORDERED: ONDANSETRON INJ 4 MG/2 ML VIAL IV ONE (07:29)
[2019-02-27] MEDS ORDERED: SODIUM CHLORIDE 0.9% 1000ML 1,000 ML IVS PRN (09:14)
--- NOTE | 2019-02-27 11:19 | HP ---
SUPERVISING PHYSICIAN: Azar Le M.D. CHIEF COMPLAINT: Generalized weakness. . HISTORY OF PRESENT ILLNESS: Mr. Banerjee is a 73 year-old male patient who was brought to the Emergency Department complaining of generalized weakness. His noted that apparently he had slipped out of his wheelchair overnight and slept on the floor. He does have a longstanding history of hyponatremia.and has had several admissions for treatment of hyponatremia. The patient was denying any falls, the only complaint on admission to the Emergency Room was just generalized weakness. It should be known the patient is a very poor historian as well as his . He has been in the Emergency Room within the last recent months and was refusing treatment due to the fact they could not gain IV access. It is noted in the Emergency Room he had a little bit of slow presentation but no slurring of speech with no obvious sensory or motor deficits. 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 His labs on presentation to the Emergency Room did show he had a severe hyponatremia with sodium at 118 but his C02 was low at 14 with an anion gap of 20.8. The patient and family were denied any significant past recent infectious processes but he is on multiple pain medications in the form of methadone and Oxycodone. It is also noted that he had some decubitus to his coccyx region in various stages as he is essentially bedridden and in the wheelchair. His creatinine actually was normal at 1.18 but his BUN was 50, potassium 5.8. Lactic acid was showing to be normal. Liver functions were all within normal limits. He had a normal CK level at 69 as well as troponin but his BNP was slightly elevated at 222. Urinalysis showed to be within normal limits with no sign of infectious process. Blood gas analysis did show he was acidotic at 7.33 with a PC02 of 27 and P02 of 95, oxygen saturation 96% on room air. Initially in the Emergency Room he was started on hypertonic saline. He is now going to be admitted for further treatment and evaluation of his hyponatremia. Dr. Young is his layout operator and was consulted via telephone by the Emergency Room physician. He noted the patient was stable enough to be treated at [facility]. He was admitted in stable condition. PAST MEDICAL HISTORY: 1. Chronic inflammatory demyelinating polyneuropathy. 2. Lymphedema. 3. Chronic obstructive pulmonary disease. 4. Chronic prostatitis on Keflex daily. 5. Hypertension. 6. Chronic pain syndrome mostly due to his low back pain. 7. Atrial fibrillation status post ablation at age 21. 8. Spinal deterioration contributing to chronic pain syndrome. 9. Neuropathy secondary to #1. PAST SURGICAL HISTORY: 1. Tonsillectomy. 2. Bilateral cataract removal. 3. Bilateral knee replacement. 4. Cardiac ablation. 5. Multiple skin cancers removed from the nose and from the ear. OUTPATIENT MEDICATIONS: 1. Zanaflex 2 mg q.i.d. 2. Flomax 0.4 mg daily. 3. Zocor 20 mg daily. 4. Potassium chloride 20 mEq daily. 5. Oxycodone 30 mg daily. 6. Procardia 90 mg daily. 7. Myrbetriq 50 mg daily. 8. Methadone 20 mg b.i.d. 9. Ibuprofen 400 mg every 6 hours as needed. 10. Gabapentin 300 mg b.i.d. 11. Flonase 50 mcg b.i.d. 12 Ferrous sulfate 325 mg daily. 13. Jessie 0.4 mg 1 daily. 14. Cardizem 240 mg daily. 15. Pradaxa 150 mg b.i.d. 16. Decara 50,000 units weekly. 17. Keflex 500 mg at bedtime. 18. Budesonide 0.5 mg inhaled as needed. 19. Brovana nebulizer 15 mcg as needed b.i.d. 20. Albuterol inhaler as needed q.i.d. ALLERGIES: NO KNOWN DRUG ALLERGIES. REVIEW OF SYSTEMS: CONSTITUTIONAL: Generalized weakness. No reported fevers or chills. HEENT: Negative for headaches, dizziness, sore throat, nasal congestion. . RESPIRATORY: Negative for coughing, wheezing or shortness of breath. CARDIAC: Negative for chest pain, palpitations, syncopal episodes. GASTROINTESTINAL: Negative for nausea, vomiting, diarrhea or constipation. GENITOURINARY: Has a chronic history of urinary retention but denies hematuria, polyuria or dysuria. MUSCULOSKELETAL: Positive for chronic lower back pain. SKIN: As per history of present illness with chronic lymphedema similar to elephantiasis with chronic changes bilaterally. He does have some decubitus to his coccyx regions. Denies any lesions, moles or rash or unexplained changes other than his chronic lower extremity edema. HEMATOLOGIC: Denies easy bruising, bleeding or transfusion reactions. PHYSICAL EXAMINATION: VITAL SIGNS: Temperature 96.8, pulse 83, blood pressure 109/76, O2 sat 100% on 2 liter nasal cannula with respirations 18. Admission weight 90 kg. GENERAL: On admission, the patient appeared to be comfortable and in no acute distress. He was alert. HEENT: Tympanic membranes clear bladder. Oropharynx pink, moist without any lesions. NECK: Supple without notable tenderness or jugular venous distention. CHEST: Lung sounds clear throughout with no notable rhonchi, rales, or wheezes. CARDIOVASCULAR: Regular rate and rhythm without appreciable murmurs, rubs, or gallops. GASTROINTESTINAL: Abdomen obese, soft, non-tender. Bowel sounds are positive. EXTREMITIES: Chronic peripheral edema reported to be at baseline levels. He does have changes consistent with chronic lymphedema with chronic changes but at baseline levels. RECTAL: Exam deferred but it was noted he had a stage 2 excoriation of his buttocks and coccyx region with repeatedly his doing wound care. NEUROLOGIC: He is alert but slow with reactions. Cranial nerves II-XII are grossly intact. No obvious focal motor deficits. Facial features were symmetrical. Extraocular movements were within normal limits. No notable nystagmus. SKIN: Warm, pink and dry other than noted extremities with chronic changes noted above. LABORATORY: White count 15,100 with hemoglobin 13.3, hematocrit 39.1, platelet count 358,000, differential does show a left shift. Coagulation studies showed a PT of 13.2 with PTT of 57.8. Blood gas analysis showed to be acidotic with C02 of 27, bicarb 15, P02 of 95. Oxygen saturation 96% on room air with normal base excess negative 10. Chemistries showed a metabolic acidosis with a hyponatremia with sodium 118, potassium 5.8, BUN 50 with carbon dioxide 14, anion gap elevated at 20. Glucose 91, serum osmolality 250. Lactic acid normal at 1.7, magnesium 1.7. Liver functions to be all within normal limits. CK level normal at 69, troponin 0.02. BNP elevated at 222. Urinalysis showed to be within normal limits with a specific gravity 1.02. MICROBIOLOGY: Influenza by PCR for A and B was negative. RADIOLOGY: Chest x-ray showed no consolidations, no acute cardiopulmonary process. CT of the head without contrast per radiology interpretation showed no acute intracranial abnormalities by CT. EKG on monitor is showing at sinus rhythm ASSESSMENT: 1. Severe hyponatremia on top of chronic hyponatremia. 2. Metabolic acidosis, uncertain etiology with no obvious source of infection with patient having a history of chronic prostatitis but urinalysis showing to be without any significant findings. 3. Acute mental status change secondary to #1 with no signs of seizure activity showing to be neurologically stable. 4. Chronic severe lower extremity lymphedema likely contributing to #1. 5. 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 6. History of chronic Inflammatory Demyelinating Polyneuropathy being treated by Dr. Rahman, neurologist. 7. Chronic pain syndrome on multiple narcotics managed by Dr. Fink. 8. Hypertension controlled. 9. History of atrial fibrillation with previous ablation therapy, last in 2016. 10. Peripheral neuropathy. PLAN: The patient is going to be admitted for severe hyponatremia. He does show leukocytosis but at this point there is no signs of infection other than the decubitus to his coccyx region but he is afebrile. Will hold off on any antibiotics at this point. He does have significant metabolic disarrangements with a metabolic acidosis on top of hyponatremia and he is treated in outpatient setting by Dr. Young. Therefore, we will contact Dr. Young to discuss the findings for assistance with treatment. Until then we will start him on some normal saline in anticipation of probably starting him on some IV fluids to include sodium bicarb. He will be on cardiac telemetry. He will be on close neurological monitoring with neuro checks. We will have him on DVT prophylaxis per protocol. We will resume his home medications as soon as those have been updated and verified. On review of his records, he is on chronic antibiotic therapy and he does have a leukocytosis and chronic prostatitis, will go ahead and start him on some Levaquin tonight and reassess with a CBC in the morning. I anticipate his length of stay to be at least 2 to 3 days. Until we can transition him to outpatient management, we will continue to monitor and treat as needed. #[id number] [facility]
[2019-02-27] MEDS ORDERED: SODIUM CHLORIDE 0.45% 1000ML 1,000 ML IVS ONE (14:14)
[2019-02-27] MEDS ORDERED: SODIUM BICARBONATE VIAL 50 MEQ/50 ML VIAL ONE (14:14)
[2019-02-27] MEDS ORDERED: NYSTATIN POWDER 15GM BTTL TOP ONE (14:32)
[2019-02-27] MEDS: SODIUM BICARBONATE IVS PRN (14:35)
[2019-02-27] MEDS: SODIUM CHLORIDE 0.45% IVS PRN (14:35)
[2019-02-27] MEDS ORDERED: MORPHINE SULFATE INJ 10 MG/ML VIAL IV PRN (16:58)
[2019-02-27] MEDS ORDERED: MAGNESIUM HYDROXIDE 30 ML UD PO PRN (16:58)
[2019-02-27] MEDS ORDERED: SODIUM CHLORIDE 0.9% (FLUSH) 10 ML SYG IV PRN (16:58)
[2019-02-27] MEDS ORDERED: ONDANSETRON INJ 4 MG/2 ML VIAL IV PRN (16:58)
[2019-02-27] MEDS ORDERED: ALUM & MAG HYDROX-SIMETHICONE 30 ML UD PO PRN (16:58)
[2019-02-27] MEDS ORDERED: ACETAMINOPHEN 325 MG TAB PO PRN (16:58)
[2019-02-27] MEDS ORDERED: ALBUTEROL SULFATE 2.5 MG/3 ML VIAL NEB PRN (17:00)
[2019-02-27] MEDS ORDERED: IV SET AND CAP CHANGE INJ INJ SCH (17:00)
[2019-02-27] MEDS ORDERED: ARFORMOTEROL TARTRATE 15 MCG/2 ML NEB NEB PRN (17:00)
[2019-02-27] MEDS ORDERED: MAGNESIUM SULFATE PREMIX 2GM 2 GM in PREMIX BAG 1 BAG IVPB ONE (17:07)
[2019-02-27] MEDS ORDERED: tiZANidine 4 MG TAB ONE (19:49)
[2019-02-27] MEDS ORDERED: DABIGATRAN ETEXILATE 75 MG CAP PO ONE (19:50)
[2019-02-27] MEDS ORDERED: MAGNESIUM SULFATE PREMIX 2GM 50 ML IVPB ONE (19:50)
[2019-02-27] MEDS: TIZANIDINE HCL 2 MG PO SCH ×2 (20:10→20:16)
[2019-02-27] MEDS: METHADONE HCL 10 MG TAB PO SCH (20:11)
[2019-02-27] MEDS: GABAPENTIN 300 MG CAP PO SCH (20:11)
[2019-02-27] MEDS ORDERED: KCL 20MEQ/D5 1/2NS 1,000 ML IVS ONE (20:36)
[2019-02-27] MEDS ORDERED: NON-FORMULARY MEDICATION 1 EA MIS (Dabigatran Etexilate Mesylate [Pradaxa] 150 MG) PO SCH (21:00)
[2019-02-27] MEDS ORDERED: NON-FORMULARY MEDICATION 1 EA MIS (Fluticasone Prop 0.05% Nasal [Flonase Nasal Spray] 50 M SCH (21:00)
[2019-02-27] MEDS: levoFLOXacin 750MG IV 750 MG in PREMIX BAG 1 BAG IVPB SCH (21:09)
[2019-02-28] MEDS ORDERED: SODIUM BICARBONATE VIAL 50 MEQ/50 ML VIAL ONE (03:39)
[2019-02-28] MEDS ORDERED: SODIUM CHLORIDE 0.45% 1000ML 1,000 ML IVS ONE (03:39)
[2019-02-28] MEDS: SODIUM CHLORIDE 0.45% IVS PRN (03:45)
[2019-02-28] MEDS: SODIUM BICARBONATE IVS PRN (03:45)
[2019-02-28] MEDS ORDERED: FUROSEMIDE INJ 40 MG/4 ML VIAL IV ONE (04:00)
[2019-02-28] MEDS ORDERED: SOD CHL 3% *HYPERTONIC* 500ML 500 ML IVS ONE (08:21)
[2019-02-28] MEDS ORDERED: DILTIAZEM HCL COATED BEADS 240 MG PO SCH (09:00)
[2019-02-28] MEDS: POTASSIUM CHLORIDE 20 MEQ TAB PO SCH (09:34)
[2019-02-28] MEDS: GABAPENTIN 300 MG CAP PO SCH ×3 (09:34→21:23)
[2019-02-28] MEDS: TAMSULOSIN 0.4 MG CAP PO SCH (09:34)
[2019-02-28] MEDS: NIFEdipine XL 90 MG TAB PO SCH (09:35)
[2019-02-28] MEDS: tiZANidine 4 MG TAB PO SCH ×4 (09:35→21:22)
[2019-02-28] MEDS: METHADONE HCL 10 MG TAB PO SCH ×2 (09:35→21:21)
[2019-02-28] MEDS: DABIGATRAN ETEXILATE 75 MG CAP PO SCH ×2 (09:36→21:21)
[2019-02-28] MEDS: DUTASTERIDE TAMSULOSIN HCL PO SCH (09:37)
[2019-02-28] MEDS: MIRABEGRON 50 MG PO SCH (09:38)
[2019-02-28] MEDS: OXYCODONE HCL 60 MG PO PRN ×2 (09:48→21:19)
[2019-02-28] MEDS: levoFLOXacin 750MG IV 750 MG in PREMIX BAG 1 BAG IVPB SCH (21:16)
[2019-02-28] MEDS: SIMVASTATIN 20 MG TAB PO SCH (21:21)
[2019-02-28] MEDS: SODIUM CHLORIDE 0.9% (FLUSH) 10 ML SYG IV SCH (21:23)
[2019-03-01] MEDS: OXYCODONE HCL 60 MG PO PRN ×3 (05:18→21:22)
[2019-03-01] MEDS: POTASSIUM CHLORIDE 20 MEQ TAB PO SCH (07:42)
--- NOTE | 2019-03-01 08:32 | PN ---
DATE: 02-28-19 SUPERVISING PHYSICIAN: Azar Le MD SUBJECTIVE: The patient is showing persistent hyponatremia, in fact, it worsened a little bit overnight, although his metabolic acidosis shows an improvement. I did discuss at length the patient's case with Dr. Young, at this point he feels it is appropriate to start him on hypertonic saline with close monitoring. The patient has not had any activity for any seizures. he remains at baseline levels mentally and has no further complaints. The only thing he complains of he wants to go home. OBJECTIVE: VITAL SIGNS: Stable with temperature of 97.1, pulse 89, blood pressure 141/76, respirations 20, oxygen saturation 95% on room air. I&O: negative balance of 470, weight down a little bit to 90.88. GENERAL: The patient appears to be in no acute distress. He is resting comfortably visiting with his . CHEST: Lung sounds are clear to auscultation, just slightly diminished towards the bases. HEART: Regular rate and rhythm. ABDOMEN: Soft, non-tender, positive bowel sounds. EXTREMITIES: As noted in history of present illness, chronic peripheral edema which appears to be at baseline levels with chronic lymphedema changes. BACK: Unchanged as to areas of excoriation to his buttocks and coccyx region. NEUROLOGIC: He continues to be alert but slow with reaction. No focal motor deficits. No notable nystagmus, no notable decrease in strength or weakness. No tremors. SKIN: [place], warm and dry, again with chronic changes noted to the lower extremities. LABORATORY: He has had multiple BNPs run, this morning prior to starting of the hypertonic saline his sodium was down to 117 with normal potassium at 4.6, carbon dioxide 18, anion gap had normalized. Creatinine 0.36, BUN elevated at 36, blood sugars remain stable at 83, calcium 8.5. Serum osmolality 24.4. After 4 hours of 3% saline his sodium was up to 120. All other electrolytes were essentially unchanged. RADIOLOGY: No additional studies. ASSESSMENT: 1. Severe hyponatremia refractory to treatment requiring and starting of hypertonic saline with patient showing no signs of neurological deterioration with patient having a history of chronic hyponatremia. 2. Metabolic acidosis showing some improvement with bicarbonate infusion, etiology uncertain although infection could be related to the decubitus to his coccyx region but he does have a history of chronic prostatitis, urinalysis currently showing no significant findings. Patient started on Levaquin. 3. Acute mental status change secondary to #1 with no signs of seizure activity showing to be neurologically stable. 4. Chronic severe lower extremity lymphedema likely contributing to #1. 5. 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 6. History of chronic Inflammatory Demyelinating Polyneuropathy being treated by Dr. Rahman, neurologist. 7. Chronic pain syndrome on multiple narcotics managed by Dr. Fink. 8. Hypertension controlled. 9. History of atrial fibrillation with previous ablation therapy, last in 2016. 10. Peripheral neuropathy. PLAN: As noted above, will start him on some hypertonic saline 3%, will run it at Dr. Young's recommendations at 50 cc an hour for 4 hours. I will check a BNP every 2 hours and will reassess at 4 hours and discuss findings with Dr. Young. The goal will be to raise his sodium at least 4 to 6 mL per liter overnight. We will closely monitor his labs and consult with Dr. Young as needed. All other medications have been restarted. He is on fluid restriction. I did give him some IV Lasix, he has Iniguez in place to closely monitor his output. I have him on neuro checks every 4 hours. He remains on telemetry We will anticipate at least anther 24 to 48 hours prior to discharge. If his sodium is refractory to treatment and any further complications are noted, Dr. Young has agreed to accept the patient in transfer but at this point the patient is showing to be stable due to the chronic nature of his hyponatremia and he is slowly improving with hypertonic saline. Until we can transition him to outpatient management, we will continue to monitor and treat as needed. #[id number] [facility]
[2019-03-01] MEDS: METHADONE HCL 10 MG TAB PO SCH ×2 (09:04→21:22)
[2019-03-01] MEDS: DABIGATRAN ETEXILATE 75 MG CAP PO SCH ×2 (09:04→21:22)
[2019-03-01] MEDS: DUTASTERIDE TAMSULOSIN HCL PO SCH (09:04)
[2019-03-01] MEDS: MIRABEGRON 50 MG PO SCH (09:04)
[2019-03-01] MEDS: NIFEdipine XL 90 MG TAB PO SCH (09:05)
[2019-03-01] MEDS: TAMSULOSIN 0.4 MG CAP PO SCH (09:05)
[2019-03-01] MEDS: GABAPENTIN 300 MG CAP PO SCH ×3 (09:05→21:25)
[2019-03-01] MEDS: tiZANidine 4 MG TAB PO SCH ×4 (09:05→21:24)
[2019-03-01] MEDS: SODIUM CHLORIDE 0.9% (FLUSH) 10 ML SYG IV SCH ×2 (09:06→21:39)
[2019-03-01] MEDS ORDERED: SODIUM CHLORIDE 0.9% (FLUSH) 10 ML SYG IV SCH (12:30)
[2019-03-01] MEDS: levoFLOXacin 750MG IV 750 MG in PREMIX BAG 1 BAG IVPB SCH (20:20)
[2019-03-01] MEDS: SIMVASTATIN 20 MG TAB PO SCH (21:24)
[2019-03-01] MEDS ORDERED: levoFLOXacin 500 MG TAB ONE (21:36)
[2019-03-01] MEDS ORDERED: levoFLOXacin 500 MG TAB PO SCH (22:00)
--- NOTE | 2019-03-01 22:07 | PN ---
DATE: 03/01/19 SUPERVISING PHYSICIAN: Azar Le M.D. SUBJECTIVE: The patient continues to show persistent hyponatremia but is improved with 3% hypertonic saline. He has had no evidence of any seizures. His mental status is at baseline levels currently. He is up to a chair. He is actually very adamant that he wants to get in a wheelchair to be able to go around the hospital. He has had no diarrhea. No abdominal pains. He remains afebrile. OBJECTIVE: VITAL SIGNS: Temperature 98.4, pulse 92, blood pressure 94/58, respirations 16, satting 93% on room air. I's and O's are showing a negative balance of 750. Weight is 94.9 kg. GENERAL: The patient is sitting in a chair. He is alert. Appears to be in no acute distress. CHEST: Lungs remain clear to auscultation, just diminished towards the bases. HEART: Regular rate and rhythm. ABDOMEN: Soft, non-tender. Positive bowel sounds. EXTREMITIES: Continue with chronic peripheral edema and chronic changes due to lymphedema as noted in History of Present Illness, essentially unchanged. NEUROLOGIC: He is much more alert today and more reactive in his response to questioning and discussions. He shows no tremors. Has no evidence of any focal motor deficits and he is alert and oriented times three. SKIN: Warm, pink and dry with chronic changes noted in his lower extremities. LABORATORY: BNP this morning after a total of 500 mL of 3% hypertonic saline over 24 hours, sodium was up to 122, potassium remains normal at 4.8, carbon dioxide is still low at 17, BUN is 24 which is down from admission of initially 49, creatinine remains within normal limits at 0.96. Blood sugar is 102. Serum osmolality is 246, calcium 8.7. ASSESSMENT: 1. Severe hyponatremia refractory to treatment requiring extensive hypertonic saline infusion showing show improvement and no obvious neurological deterioration and appears to be at baseline levels, but continues to be persistently hyponatremic with a history of chronic hyponatremia. 2. Persistent metabolic acidosis, although improving after bicarbonate infusion and continued IV fluids possibly secondary to some infectious process to his coccygeal region for a decubitus ulcer versus chronic prostatitis with the patient currently on Levaquin. 3. Acute mental status change secondary to #1 now back to baseline levels. 4. Chronic severe lower extremity lymphedema likely contributing to #1. 5. 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 6. History of chronic Inflammatory Demyelinating Polyneuropathy being treated by Dr. Rahman, neurologist. 7. Chronic pain syndrome on multiple narcotics managed by Dr. Fink. 8. Hypertension controlled. 9. History of atrial fibrillation with previous ablation therapy, last in 2016. 10. Peripheral neuropathy. PLAN: I did discuss the patient's labs and plan of care this morning with Dr. Young who again recommends that we keep the patient saline locked today, avoid any diuretics and reassess in the morning as this is a chronic issue. Dr. Yonug has seen the patient in followup recently for the same issues and is going to do a chart review in the morning to see if there is any further workup needed that has not already been done as an outpatient to help with further management. Hopefully will be able to discharge tomorrow. Before we do will need to remove his Iniguez, but will leave that in place at this point so we can closely monitor his I's and O's. I have told him that he can get to a wheelchair if we have one available and his is available to help with his care and can push him around the hospital, but he will remain in a chair throughout the day as much as needed and then back to bed. Will avoid any sedative type medications and reassess in the morning with a BMP. His white count has normalized but he still remains on Levaquin at this point. Until we can transition him to outpatient management which will hopefully be tomorrow, will continue to monitor and treat as needed. #[id number] [facility]
[2019-03-02 04:36] VITALS: O2SAT 99
[2019-03-02] MEDS ORDERED: SOD CHL 3% *HYPERTONIC* 500ML 500 ML IVS ONE (07:34)
[2019-03-02] MEDS: POTASSIUM CHLORIDE 20 MEQ TAB PO SCH (07:43)
[2019-03-02] MEDS: DUTASTERIDE TAMSULOSIN HCL PO SCH (10:15)
[2019-03-02] MEDS: OXYCODONE HCL 60 MG PO PRN (10:15)
[2019-03-02] MEDS: MIRABEGRON 50 MG PO SCH (10:15)
[2019-03-02] MEDS: METHADONE HCL 10 MG TAB PO SCH (10:15)
[2019-03-02] MEDS: TAMSULOSIN 0.4 MG CAP PO SCH (10:16)
[2019-03-02] MEDS: GABAPENTIN 300 MG CAP PO SCH (10:16)
[2019-03-02] MEDS: tiZANidine 4 MG TAB PO SCH (10:16)
[2019-03-02] MEDS: NIFEdipine XL 90 MG TAB PO SCH (10:16)
[2019-03-02] MEDS: SODIUM CHLORIDE 0.9% (FLUSH) 10 ML SYG IV SCH (10:17)
[2019-03-02] MEDS: DABIGATRAN ETEXILATE 75 MG CAP PO SCH (10:35)
[2019-03-02 10:52] VITALS: BP 115/77; TEMP 97.7
--- NOTE | 2019-03-10 09:12 | DS ---
SUPERVISING PHYSICIAN: Todd Moon MD ADMISSION DIAGNOSIS: 1. Severe hyponatremia on top of chronic hyponatremia. 2. Metabolic acidosis, uncertain etiology with no obvious source of infection with patient having a history of chronic prostatitis but urinalysis showing to be without any significant findings. 3. Acute mental status change secondary to #1 with no signs of seizure activity showing to be neurologically stable. 4. Chronic severe lower extremity lymphedema likely contributing to #1. 5. 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 6. History of chronic Inflammatory Demyelinating Polyneuropathy being treated by Dr. Rahman, neurologist. 7. Chronic pain syndrome on multiple narcotics managed by Dr. Fink. 8. Hypertension controlled. 9. History of atrial fibrillation with previous ablation therapy, last in 2016. 10. Peripheral neuropathy. DISCHARGE DIAGNOSIS: 1. Severe hyponatremia refractory to treatment requiring extensive hypertonic saline infusion showing show improvement and no obvious neurological deterioration and appears to be at baseline levels, but continues to be persistently hyponatremic with a history of chronic hyponatremia. 2. Persistent metabolic acidosis, although improving after bicarbonate infusion and continued IV fluids possibly secondary to some infectious process to his coccygeal region for a decubitus ulcer versus chronic prostatitis with the patient currently on Levaquin. 3. Acute mental status change secondary to #1 now back to baseline levels. 4. Chronic severe lower extremity lymphedema likely contributing to #1. 5. 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 6. History of chronic Inflammatory Demyelinating Polyneuropathy being treated by Dr. Rahman, neurologist. 7. Chronic pain syndrome on multiple narcotics managed by Dr. Fink. 8. Hypertension controlled. 9. History of atrial fibrillation with previous ablation therapy, last in 2016. 10. Peripheral neuropathy. REASON FOR HOSPITALIZATION: Mr. Banerjee is a 73 year-old male patient who was brought to the Emergency Department complaining of generalized weakness. His noted that apparently he had slipped out of his wheelchair overnight and slept on the floor. He does have a longstanding history of hyponatremia.and has had several admissions for treatment of hyponatremia. The patient was denying any falls, the only complaint on admission to the Emergency Room was just generalized weakness. It should be known the patient is a very poor historian as well as his . He has been in the Emergency Room within the last recent months and was refusing treatment due to the fact they could not gain IV access. It is noted in the Emergency Room he had a little bit of slow presentation but no slurring of speech with no obvious sensory or motor deficits. 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 His labs on presentation to the Emergency Room did show he had a severe hyponatremia with sodium at 118 but his C02 was low at 14 with an anion gap of 20.8. The patient and family were denied any significant past recent infectious processes but he is on multiple pain medications in the form of methadone and Oxycodone. It is also noted that he had some decubitus to his coccyx region in various stages as he is essentially bedridden and in the wheelchair. His creatinine actually was normal at 1.18 but his BUN was 50, potassium 5.8. Lactic acid was showing to be normal. Liver functions were all within normal limits. He had a normal CK level at 69 as well as troponin but his BNP was slightly elevated at 222. Urinalysis showed to be within normal limits with no sign of infectious process. Blood gas analysis did show he was acidotic at 7.33 with a PC02 of 27 and P02 of 95, oxygen saturation 96% on room air. Initially in the Emergency Room he was started on hypertonic saline. He is now going to be admitted for further treatment and evaluation of his hyponatremia. Dr. Young is his construction equipment mechanic and was consulted via telephone by the Emergency Room physician. He noted the patient was stable enough to be treated at [place]. He was admitted in stable condition. LABORATORY: White count on admission was 15,100, at discharge was 8,000. Hemoglobin 12.2, hematocrit 37.6, platelet count 347,000. Differential was without a left shift. Coagulation studies showed PT 13.2, PTT 57.8. Blood gas analysis on 02/27/19 showed pH 7.30, pCO2 27, pO2 95. Chemistries showed initial sodium on admission 118. After aggressive treatment with 24 hours of hypertonic saline treatment, he did improve up to 122, but 24 hours later on the date of discharge/transfer, he had gone back down to 118. Potassium 5.8 at discharge, BUN 28, creatinine 1.11. Carbon dioxide low at 15. Anion gap was normal prior to discharge at 16.8 and on admission was 24.8. Calcium was normal at 9.4. Magnesium low at 1.7. Troponin normal at 0.02. BNP elevated at 222. Lipase normal at 34. Amylase normal at 23. Serum osmolality at discharge was 245. Urinalysis was within normal limits. RADIOLOGY: Chest x-ray on admission per radiologic interpretation showed no acute cardiopulmonary process. He had a CT of the head and per radiologic interpretation showed no acute intracranial abnormalities by CT. HOSPITAL COURSE: Mr. Banerjee was admitted for severe hyponatremia. He was treated with hypertonic saline under consultation with Dr. Young, his construction equipment mechanic. He was also treated with sodium bicarb infusion. He was refractory to treatment. He never had any evidence of seizures, but we could not stabilize his sodium. Therefore, after consultation with Dr. Young after attempting to correct it over 48 hours, the decision was made to transfer the patient to [facility] so further workup could be completed to help correct it and find the origin of his hyponatremia. Transfer was secured through [facility] and after further discussion, the patient and family agreed to be transferred via ground. PLAN: Mr. Banerjee was discharged and transferred on 03/02/19 via ground ambulance to [facility]. All instructions were per [facility] once discharged. His discharge vital signs showed: Blood pressure 115/77. Oxygen saturation 99% on room heart. Heart rate 84. Afebrile at 97.7. Respirations 20. CONDITION ON DISCHARGE: Stable and guarded. #[id number] [facility]
== END 2019-03-02 11:50 | disposition short-term general hospital (02) | DRG 641 ==
LOC: ER 05:15 → MS 11:17 → OBSVTOIN 11:17
PROVIDERS: ADMIT Nurse Practitioner Family; ATTEND Nurse Practitioner Family
DX: E87.1 Hypo-osmolality and hyponatremia (principal); G61.81 Chronic inflammatory demyelinating polyneuritis; E87.2 Acidosis; L89.159 Pressure ulcer of sacral region, unspecified stage; J44.9 Chronic obstructive pulmonary disease, unspecified; I10 Essential (primary) hypertension; I89.0 Lymphedema, not elsewhere classified; N41.1 Chronic prostatitis; G89.4 Chronic pain syndrome; W05.0XXA Fall from non-moving wheelchair, initial encounter; Z96.653 Presence of artificial knee joint, bilateral; Z79.01 Long term (current) use of anticoagulants

== ENCOUNTER 2019-03-19 11:48 | Inpatient (IN) | payer MEDICARE ==
[2019-03-19] MEDS ORDERED: IPRATROPIUM/ALBUTEROL 3 ML VIAL NEB ONE (13:18)
[2019-03-19] MEDS ORDERED: cefTRIAXone SODIUM 1 GM in SODIUM CHL 0.9% 50ML MIN-BAG+ 50 ML IVPB ONE (13:18)
[2019-03-19] MEDS ORDERED: methylPREDNISolone SODIUM SUC 125 MG/2 ML VIAL IM ONE (13:18)
[2019-03-19] MEDS ORDERED: cefTRIAXone SODIUM 1 GM VIAL ONE (13:22)
[2019-03-19] MEDS ORDERED: SODIUM CHL 0.9% 50ML MIN-BAG+ 50 ML IVPB ONE (13:22)
--- NOTE | 2019-03-19 14:01 | ED.PDOC ---
History of Present Illness - General Chief Complaint: General Stated Complaint: AMS AND SWELLING OF LE AND CONGEESTION Time Seen by Provider: 03/19/19 13:16 Source: patient - History of Present Illness Initial Comments: 73-year-old male presents to the emergency department with confusion and swelling to the lower extremities. He reports the symptoms have been present for quite a while as he has a history of lymphedema but over the last several days he has been slightly confused. He has had a frequent cough but denies any vomiting or diarrhea. He denies any history of congestive heart failure. He has not had any chest pain. His family reported over the last several days he has been a little bit confused and this was what prompted them to call EMS. He is able to my questions appropriately here in the emergency department and the family has not yet arrived to give further details. Symptoms are currently rated as moderate in severity and nothing he does seems to make them significantly better or worse. Allergies/Adverse Reactions: Allergies NO KNOWN ALLERGY Allergy (Verified 03/19/19 11:56) Home Medications: Ambulatory Orders Cephalexin Monohydrate [Keflex] 500 mg PO BEDTIME 11/07/18 Dabigatran Etexilate Mesylate [Pradaxa] 150 mg PO BID 11/07/18 Dutasteride-Tamsulosin HCl [Jessie 0.5-0.4 mg] 1 cap PO DAILY 11/07/18 Ferrous Sulfate 325 mg PO DAILY 11/07/18 Ibuprofen [Ibu] 400 mg PO Q6H PRN 11/07/18 Methadone HCl [Methadone] 20 mg PO BID 11/07/18 Mirabegron [Myrbetriq] 50 mg PO DAILY 11/07/18 Nifedipine [Procardia Xl] 90 mg PO DAILY 11/07/18 Simvastatin [Zocor] 20 mg PO DAILY 11/07/18 Tizanidine HCl [Zanaflex] 2 mg PO QID 11/07/18 Gabapentin 300 mg PO TID 11/12/18 Potassium Chloride [K-Tab] 20 meq PO DAILY #7 tab 11/14/18 Cholecalciferol [Decara] 50,000 unit PO WKLY 02/27/19 Oxycodone HCl 60 mg PO Q6HR PRN 02/27/19 Tamsulosin [Flomax] 0.4 mg PO QD 02/27/19 Cholecalciferol [Vitamin D3] 50,000 unit PO WKLY 02/28/19 Review of Systems - Review of Systems Constitutional: States: weakness. Denies: chills, fever EENTM: Denies: nose congestion, throat pain, throat swelling Respiratory: States: cough. Denies: short of breath, wheezing Cardiology: Denies: chest pain, palpitations Gastrointestinal/Abdominal: Denies: abdominal pain, diarrhea, nausea, vomiting Genitourinary: Denies: dysuria, hematuria Musculoskeletal: Denies: back pain, muscle pain Skin: Denies: lesions, rash Neurological: States: other - confusion . Denies: headache, numbness, weakness Past Medical History (General) - Patient Medical History Hx Seizures: No Hx Stroke: No Hx Asthma: No Hx of COPD: Yes Hx Cardiac Disorders: Yes - A-fib, arrhythmias Hx Congestive Heart Failure: Yes Hx Pacemaker: No Hx Hypertension: Yes Hx Diabetes: No Hx Cancer: No Hx MRSA: No Surgical History: appendectomy - Vaccination History Hx Tetanus, Diphtheria Vaccination: No Hx Influenza Vaccination: Yes Hx Pneumococcal Vaccination: Yes Immunizations Up to Date: No - Social History Hx Tobacco Use: No Hx Alcohol Use: Yes - RARE Hx Substance Use: No Hx Substance Use Treatment: No Hx Physical Abuse: No Hx Emotional Abuse: No Family Medical History - Family History Mother Hx Family Congestive Heart Failure: Yes Father Family History: Unknown Living Status: Hx Family Cancer: Yes - lung Physical Exam - Physical Exam General Appearance: Alert, No apparent distress, Well Developed, Well Nourished Eye Exam: bilateral normal Ears, Nose, Throat: normal ENT inspection, normal pharynx Neck: supple, normal inspection Respiratory: no respiratory distress, other - Course breath sounds bilaterally with rhonchi and occasional expiratory wheezes. Cardiovascular/Chest: tachycardia, irregularly irregular, other - Lymphedema with chronic skin changes to bilateral lower extremities from the knees down Gastrointestinal/Abdominal: normal bowel sounds, non tender, soft Neurologic: alert, other - Chronic weakness to bilateral lower extremities secondary to lymphedema. Strength in the upper extremities is normal with normal sensation. Oriented to person and time but thought that he was in [place]. Skin Exam: other - Chronic venous stasis changes to bilateral lower extremities with weeping Comments: Vital Signs - 24 hr 03/19/19 03/19/19 03/19/19 11:57 12:29 12:48 Temperature 99.6 F Pulse Rate Pulse Rate [ 141 H 146 H 92 H MONITOR] Respiratory 22 24 16 Rate Blood Pressure 106/71 105/77 [RA] O2 Sat by Pulse 96 92 L Oximetry 03/19/19 03/19/19 13:00 13:57 Temperature 99.6 F Pulse Rate 105 H Pulse Rate [ 96 H MONITOR] Respiratory 16 24 Rate Blood Pressure 104/66 [RA] O2 Sat by Pulse 93 L 96 Oximetry Progress - Progress Progress: 03/19/19 15:40 Patient recheck the family is not the bedside. All lab and imaging results discussed so far. The patient has a history of hyponatremia and was actually discharged with a sodium of 124 from [facility] week ago. The and daughter state that over the last 24 hours the patient has significantly declined yesterday he was able to walk across the room without significant difficulty today he has been so weak he is unable to do that. They also noticed that his breathing sounds very junky and this seemed to happen over the last 24 hours. He is normally supposed to be on oxygen however the report yesterday he wasn't wearing it like he usually does. At this time we are still waiting on the remainder of his lab evaluation to come back including an ABG but I have discussed with then he will likely be admitted. 03/19/19 16:41 All further lab and imaging results discussed with the patient and his family at the bedside. His ABG does not show any hypercapnia and his PCO2 is actually mildly low but his pH is normal. Urinalysis is currently pending however the patient has been treated prophylactically with Rocephin. I spoke with Winnie Bedolla for the hospitalist service who agrees with admission. - Results/Orders Results/Orders: 03/19/19 12:44 EKG .ONCE 03/19/19 13:17 Telemetry ONCE 03/19/19 13:18 BLOOD CULTURE Stat 03/19/19 13:30 EKG STAT 03/19/19 15:18 Arterial Blood Gas Stat Laboratory Results - last 24 hr 03/19/19 03/19/19 13:41 13:41 WBC 6.5 RBC 4.31 L Hgb 12.0 L Hct 36.1 L MCV 83.7 MCH 27.7 MCHC 33.2 RDW 15.7 H Plt Count 204 MPV 8.4 Absolute Neuts (auto) 5.60 Absolute Lymphs (auto) 0.20 L Absolute Monos (auto) 0.60 Absolute Eos (auto) 0.00 Absolute Basos (auto) 0.00 Neutrophils % 86.4 H Lymphocytes % 3.6 L Monocytes % 9.7 H Eosinophils % 0.0 L Basophils % 0.3 PT 12.7 H INR 1.28 H PTT (SP) 47.0 H* Sodium 121 L Potassium 4.6 Chloride 96 L Carbon Dioxide 14 L* Anion Gap 15.6 BUN 22 H Creatinine 1.08 BUN/Creatinine Ratio 20.4 H Random Glucose 88 Serum Osmolality 246.8 L* Lactic Acid 1.2 Calcium 8.5 Magnesium 1.2 L Creatine Kinase 344 H* CK-MB (CK-2) 5.0 H* CK-MB (CK-2) % 1.45 Troponin I 0.02 EKG interpreted by myself at 11:49 AM. It is limited by significant baseline artifact. Atrial fibrillation rate 135. Left axis deviation. No ST elevation and nonspecific ST-T changes. CT Head: Impression: No acute intracranial abnormality by CT. Senescent changes. 3.4 cm likely chronic lesion associated with the right maxillary sinus floor as well as the alveolar ridge indentation as above. ENT consultation recommended. Electronically signed by: Abdoul Mckeon MD 02/27/2019 7:11 AM RESUME WRITER CXR: IMPRESSION: Stable size cardiac silhouette. Partially calcified aorta. Suboptimal inspiratory volume which can accentuate the pulmonary markings. Bilateral perihilar fullness may represent vascular crowding versus vascular congestion. Calcified right paratracheal and right hilar lymph nodes are unchanged. No lobar consolidation. No pleural effusion or pneumothorax. Thoracic spondylosis. Electronically signed by: Martell Villalobos MD 03/19/2019 2:46 PM RESUME WRITER - EKG/XRAY/CT CT Ordered: No CT Interpretation Call Back: No Departure - Departure Clinical Impression: Hyponatremia, Weak, Unable to walk, Confusion, COPD with exacerbation Atrial fibrillation Qualifiers: Atrial fibrillation type: unspecified chronic Qualified Code(s): I48.20 - Chronic atrial fibrillation, unspecified; I48.2 - Chronic atrial fibrillation Time of Disposition: 16:44 Condition: Fair Departure Forms: ED Discharge - Pt. Copy, Patient Portal Self Enrollment Home Medications: Ambulatory Orders Cephalexin Monohydrate [Keflex] 500 mg PO BEDTIME 11/07/18 Dabigatran Etexilate Mesylate [Pradaxa] 150 mg PO BID 11/07/18 Dutasteride-Tamsulosin HCl [Jessie 0.5-0.4 mg] 1 cap PO DAILY 11/07/18 Ferrous Sulfate 325 mg PO DAILY 11/07/18 Ibuprofen [Ibu] 400 mg PO Q6H PRN 11/07/18 Methadone HCl [Methadone] 20 mg PO BID 11/07/18 Mirabegron [Myrbetriq] 50 mg PO DAILY 11/07/18 Nifedipine [Procardia Xl] 90 mg PO DAILY 11/07/18 Simvastatin [Zocor] 20 mg PO DAILY 11/07/18 Tizanidine HCl [Zanaflex] 2 mg PO QID 11/07/18 Gabapentin 300 mg PO TID 11/12/18 Potassium Chloride [K-Tab] 20 meq PO DAILY #7 tab 11/14/18 Cholecalciferol [Decara] 50,000 unit PO WKLY 02/27/19 Oxycodone HCl 60 mg PO Q6HR PRN 02/27/19 Tamsulosin [Flomax] 0.4 mg PO QD 02/27/19 Cholecalciferol [Vitamin D3] 50,000 unit PO WKLY 02/28/19 Decision To Admit - Decistion To Admit Decision to Admit Date: 03/19/19 Decision to Admit Time: 16:41
--- NOTE | 2019-03-19 14:47 | CT ---
EXAM DESCRIPTION: Head CLINICAL HISTORY: 73 years Male, AMS COMPARISON: CT head 02/27/2019 TECHNIQUE: Axial images obtained from the skull base to the vertex without intravenous contrast with images. Coronal and sagittal reformations provided. This exam was performed according to our departmental dose-optimization program, which includes automated exposure control, adjustment of the mA and/or kV according to patient size and/or use of iterative reconstruction technique. Time Last Seen Well (If known) for Code Stroke: n/a FINDINGS: Brain Parenchyma, ventricles, meninges, and extra-axial spaces: Moderate cortical atrophy. Nonspecific white matter hypodensities in the cerebral hemispheres likely related to ischemic small vessel disease. Possible difficulty differentiating a small acute infarction given these hypodensities. No acute intracranial hemorrhage. No abnormal extra-axial fluid collection. Vascular: Atherosclerosis is within the carotid siphons. Calvarium, paranasal sinuses, mastoids, and orbits: Calvarium intact. Visualized paranasal sinuses and mastoid air cells clear. Bilateral lens replacement. IMPRESSION: 1. No acute intracranial abnormality. Of note, CT is relatively insensitive when compared to MRI for evaluation of acute ischemic infarction. If there remains clinical concern, MRI of the brain is recommended. 2. Senescent changes. Electronically signed by: Martell Villalobos MD 03/19/2019 2:45 PM MILLER DISTILLERY
--- NOTE | 2019-03-19 14:48 | RAD ---
EXAM DESCRIPTION: Chest,1 View CLINICAL HISTORY: 73 years Male, SOB COMPARISON: Chest radiograph 02/27/2019 TECHNIQUE: Single view radiograph of the chest. IMPRESSION: Stable size cardiac silhouette. Partially calcified aorta. Suboptimal inspiratory volume which can accentuate the pulmonary markings. Bilateral perihilar fullness may represent vascular crowding versus vascular congestion. Calcified right paratracheal and right hilar lymph nodes are unchanged. No lobar consolidation. No pleural effusion or pneumothorax. Thoracic spondylosis. Electronically signed by: Martell Villalobos MD 03/19/2019 2:46 PM LOW VOLTAGE TECHNICIAN
[2019-03-19] MEDS ORDERED: SODIUM CHLORIDE 0.9% (FLUSH) 10 ML SYG IV PRN (20:29)
[2019-03-19] MEDS ORDERED: IPRATROPIUM/ALBUTEROL 3 ML VIAL INH PRN (20:29)
[2019-03-19] MEDS ORDERED: IV SET AND CAP CHANGE INJ INJ SCH (20:30)
[2019-03-19] MEDS ORDERED: SODIUM CHLORIDE 0.9% 1000ML 1,000 ML IVS PRN (20:37)
[2019-03-20] MEDS: IPRATROPIUM/ALBUTEROL 3 ML VIAL INH SCH ×4 (09:34→20:30)
--- NOTE | 2019-03-20 10:36 | HP ---
SUPERVISING PHYSICIAN: Chilango Fink MD CHIEF COMPLAINT: Altered mental status. HISTORY OF PRESENT ILLNESS: This is a 73-year-old male patient who came to the Emergency Department with confusion and altered mental status. The family also had some complaints of lower extremity edema, but he does have chronic lower extremity lymphedema. His says that over the last few days, he has been slightly confused and it has progressed to the point that he is fairly well obtunded upon arrival to the Emergency Room. There has been no vomiting or diarrhea. He did awaken to answer questions, but then he would fall back asleep. His initial vital signs showed temperature 99.6, heart rate 141, blood pressure 106/71, respiratory rate 22, O2 saturation 96% on 3 liters nasal cannula. Lab was done and he had WBC 6.5, hemoglobin 12, hematocrit 36.1. Blood gas showed pCO2 29, pO2 79, bicarb 15.2, pH 7.35, ABG saturation of 95.8%. Chemistries show sodium 121, potassium 4.6, chloride 96, carbon dioxide 14, anion 15.6, BUN 22, creatinine 1.08, serum osmolality 246.8, lactic acid 1.2, calcium 8.5, magnesium 1.2. Ammonia 25, creatinine kinase 344, CK-MB 5, BNP 132. Urinalysis was negative. He does have a Iniguez catheter. Blood cultures were sent. Head CT showed no acute intracranial abnormality, senescent changes. His chest x-ray showed stable size cardiac silhouette, partially calcified aorta, suboptimal inspiratory volume which can accentuate markings, bilateral perihilar fullness may represent vascular crowding versus vascular congestion. No pleural effusion or pneumothorax. The patient was given ceftriaxone, DuoNeb and Solu-Medrol. I was called for hospital admission. PAST MEDICAL HISTORY: 1. Chronic inflammatory demyelinating polyneuropathy. 2. Chronic lower extremity lymphedema. 3. Chronic obstructive pulmonary disease. 4. Chronic prostatitis on Keflex daily. 5. Hypertension. 6. Chronic pain syndrome, mostly with low back pain. 7. Atrial fibrillation status post ablation. 8. Spinal deterioration contributing to his chronic pain syndrome. 9. Neuropathy. PAST SURGICAL HISTORY: 1. Tonsillectomy. 2. Bilateral cataract removal. 3. Bilateral knee replacement. 4. Cardiac ablation. 5. Multiple skin cancers removed from the nose and ears. OUTPATIENT MEDICATIONS: Per the EMR and awaiting verification. ALLERGIES: NO KNOWN DRUG ALLERGIES. REVIEW OF SYSTEMS: Unable to obtain due to the patient's obtunded state. PHYSICAL EXAMINATION: VITAL SIGNS: Temperature 98.3. Heart rate 96. Blood pressure 93/63. Respiratory rate 24. O2 saturation 96% on 3 liters nasal cannula. GENERAL: This is a 73-year-old male patient who is lying in his hospital bed. He is in no acute distress. He is rather obtunded. HEENT: Normocephalic, atraumatic. Pupils are equal and reactive. Oropharynx is clear. NECK: Supple without mass. No discernible JVD. RESPIRATORY: Somewhat diminished at the bases, but otherwise clear to auscultation bilaterally. CHEST: There is equal rise and fall of the chest with inspiration and expiration. CARDIOVASCULAR: Regular rate and rhythm. GASTROINTESTINAL: Abdomen is soft, nondistended, nontender. Bowel sounds are positive. EXTREMITIES: He has chronic lymphedema to the bilateral lower extremities. Pulses are palpable at +1. They are both weeping. NEUROLOGIC: He is obtunded, but he does awaken, but he falls back to sleep almost immediately. He is oriented to person only. LABORATORY: Labs and films are as per history of present illness. IMPRESSION: 1. Hyponatremia, acute on chronic, with an admitting sodium of 121. 2. Altered mental status that is acute with continuing difficulty arousing the patient. 3. Hypoxia. 4. Chronic severe lower extremity lymphedema that most likely contributes to his hyponatremia. 5. History of chronic obstructive pulmonary disease without signs or symptoms of exacerbation. 6. History of chronic inflammatory demyelinating polyneuropathy. 7. Chronic pain syndrome on multiple narcotics, managed by Dr. Fink. 8. Hypertension, controlled. 9. History of atrial fibrillation with previous ablation therapy. 10. Peripheral neuropathy. PLAN: We will admit the patient to the hospital. We will do neuro checks and continue to monitor him closely. At this point, I will not continue his antibiotics for now. If we see some issues with an infectious process, we will start those. We will monitor his cultures. I will do a physical therapy consult as well as social service consult. He will be on DVT prophylaxis and we will resume his home medications as soon as those are verified. I will repeat his lab in the morning. We will continue to follow him closely and treat as appropriate. [facility][id number] [facility]
[2019-03-20] MEDS ORDERED: tiZANidine 4 MG TAB PO PRN (12:08)
[2019-03-20] MEDS: MIRABEGRON 50 MG PO SCH (12:15)
[2019-03-20] MEDS: FLUTICASONE PROP 0.05% NASAL 16 GM BTTL BNAS SCH ×2 (12:15→21:27)
[2019-03-20] MEDS ORDERED: GABAPENTIN 400 MG CAP PO SCH (12:15)
[2019-03-20] MEDS ORDERED: GABAPENTIN 400 MG CAP ONE (12:49)
[2019-03-20] MEDS ORDERED: DOCUSATE SODIUM 100 MG CAP ONE (12:50)
[2019-03-20] MEDS ORDERED: DABIGATRAN ETEXILATE 75 MG CAP PO ONE (12:50)
[2019-03-20] MEDS ORDERED: MAGNESIUM SULFATE PREMIX 2GM 2 GM in PREMIX BAG 1 BAG IVPB ONE ×2 (13:00→21:59)
[2019-03-20] MEDS: NON-FORMULARY MEDICATION 1 EA MIS (Sodium Chloride [Sodium Chloride] 1 GM) PO SCH ×3 (13:00→21:28)
[2019-03-20] MEDS: METHADONE HCL 10 MG TAB PO SCH ×2 (13:26→21:24)
[2019-03-20] MEDS: FINASTERIDE 5 MG TAB PO SCH (13:26)
[2019-03-20] MEDS: GABAPENTIN 400 MG CAP PO SCH ×2 (13:26→21:24)
[2019-03-20] MEDS: DOCUSATE SODIUM 100 MG CAP PO SCH ×2 (13:27→21:24)
[2019-03-20] MEDS: TAMSULOSIN 0.4 MG CAP PO SCH (13:27)
[2019-03-20] MEDS: DABIGATRAN ETEXILATE 75 MG CAP PO SCH ×2 (13:27→21:24)
[2019-03-20] MEDS: POTASSIUM CHLORIDE 20 MEQ TAB PO SCH (13:28)
[2019-03-20] MEDS ORDERED: MAGNESIUM SULFATE PREMIX 2GM 50 ML IVPB ONE ×2 (13:35→22:19)
[2019-03-20] MEDS: BUDESONIDE NEBS 0.5 MG/2 ML INH NEB SCH (20:30)
[2019-03-20] MEDS: SIMVASTATIN 20 MG TAB PO SCH (21:24)
[2019-03-21] MEDS: DABIGATRAN ETEXILATE 75 MG CAP PO SCH ×2 (08:37→21:02)
[2019-03-21] MEDS: GABAPENTIN 400 MG CAP PO SCH ×3 (08:44→21:02)
[2019-03-21] MEDS: METHADONE HCL 10 MG TAB PO SCH ×2 (08:44→21:02)
[2019-03-21] MEDS: FERROUS SULFATE 325 MG TAB PO SCH (08:45)
[2019-03-21] MEDS: TAMSULOSIN 0.4 MG CAP PO SCH (08:45)
[2019-03-21] MEDS: POTASSIUM CHLORIDE 20 MEQ TAB PO SCH (08:45)
[2019-03-21] MEDS: FLUTICASONE PROP 0.05% NASAL 16 GM BTTL BNAS SCH ×2 (08:45→21:02)
[2019-03-21] MEDS: DOCUSATE SODIUM 100 MG CAP PO SCH ×2 (08:45→21:03)
[2019-03-21] MEDS: FINASTERIDE 5 MG TAB PO SCH (08:45)
[2019-03-21] MEDS: MIRABEGRON 50 MG PO SCH (08:46)
[2019-03-21] MEDS: NON-FORMULARY MEDICATION 1 EA MIS (Sodium Chloride [Sodium Chloride] 1 GM) PO SCH ×4 (08:46→21:03)
[2019-03-21] MEDS: IPRATROPIUM/ALBUTEROL 3 ML VIAL INH SCH ×4 (09:55→21:00)
[2019-03-21] MEDS: BUDESONIDE NEBS 0.5 MG/2 ML INH NEB SCH ×2 (09:55→21:00)
--- NOTE | 2019-03-21 11:08 | PN ---
SUPERVISING PHYSICIAN: Chilango Fink MD DATE: 03/20/2019 SUBJECTIVE: The patient is sitting up in his bed. He is much more alert today. He actually feels much better and he has no complaints of shortness of breath, chest pain, nausea or vomiting. OBJECTIVE: VITAL SIGNS: Temperature 98.7, heart rate 82, blood pressure 98/64, respiratory rate 18, oxygen saturation 98% on room air. RESPIRATORY: Essentially clear to auscultation bilaterally. CARDIAC: Regular rate and rhythm. GI: Abdomen soft, nondistended, non-tender. Bowel sounds are positive. EXTREMITIES: Swelling to his lower extremity has improved. He continues to have some weeping from his lower extremity but not worse than yesterday. His bilateral pedal pulses are +1. NEURO: He is awake, alert, and oriented x3. LABORATORY: WBC 7.8 with a hemoglobin of 11.4, hematocrit 35.5, left shift on his differential, his sodium is improved to 124 with chloride of 97, carbon dioxide 16, BUN 18, creatinine 0.81, serum osmolality 251, calcium 8.2, magnesium 1.3. Preliminary blood cultures show no growth after 24 hours. All other labs and films have been reviewed via the EMR. ASSESSMENT: 1. Hyponatremia, acute on chronic, with an admitting sodium of 121. 2. Altered mental status that is acute with continuing difficulty arousing the patient. 3. Hypoxia. 4. Chronic severe lower extremity lymphedema that most likely contributes to his hyponatremia. 5. History of chronic obstructive pulmonary disease without signs or symptoms of exacerbation. 6. History of chronic inflammatory demyelinating polyneuropathy. 7. Chronic pain syndrome on multiple narcotics, managed by Dr. Fink. 8. Hypertension, controlled. 9. History of atrial fibrillation with previous ablation therapy. 10. Peripheral neuropathy. PLAN: We will continue present supportive care including his physical therapy. He will get 4 grams of magnesium as supplementation. I will repeat his lab in the morning. Hopefully, he can be discharged tomorrow or the next day in stable condition. We will continue to monitor him closely and follow as needed. [facility][id number] [facility]
[2019-03-21] MEDS: guaiFENesin ER TAB 600 MG TAB PO SCH ×2 (16:13→21:02)
--- NOTE | 2019-03-21 16:27 | RAD ---
EXAM DESCRIPTION: Chest,1 View CLINICAL HISTORY: 73 years Male congestion COMPARISON: 03/19/2019 FINDINGS: Cardiac size is stable. Calcified aorta. Elevation the right hemidiaphragm with right basilar atelectasis stable when compared to the previous study. No new area of infiltrate right no evidence of edema. No pleural fluid or pneumothorax noted. IMPRESSION: Stable appearance of the chest Electronically signed by: Ayana Slater MD 03/21/2019 4:25 PM SENIOR WATER RESOURCES ENGINEER
[2019-03-21] MEDS: SIMVASTATIN 20 MG TAB PO SCH (21:03)
[2019-03-22] MEDS: GABAPENTIN 400 MG CAP PO SCH (09:06)
[2019-03-22] MEDS: METHADONE HCL 10 MG TAB PO SCH (09:06)
[2019-03-22] MEDS: DABIGATRAN ETEXILATE 75 MG CAP PO SCH (09:06)
[2019-03-22] MEDS: MIRABEGRON 50 MG PO SCH (09:07)
[2019-03-22] MEDS: FLUTICASONE PROP 0.05% NASAL 16 GM BTTL BNAS SCH (09:07)
[2019-03-22] MEDS: FERROUS SULFATE 325 MG TAB PO SCH (09:07)
[2019-03-22] MEDS: DOCUSATE SODIUM 100 MG CAP PO SCH (09:07)
[2019-03-22] MEDS: POTASSIUM CHLORIDE 20 MEQ TAB PO SCH (09:07)
[2019-03-22] MEDS: FINASTERIDE 5 MG TAB PO SCH (09:07)
[2019-03-22] MEDS: guaiFENesin ER TAB 600 MG TAB PO SCH (09:07)
[2019-03-22] MEDS: TAMSULOSIN 0.4 MG CAP PO SCH (09:07)
[2019-03-22] MEDS: NON-FORMULARY MEDICATION 1 EA MIS (Sodium Chloride [Sodium Chloride] 1 GM) PO SCH ×2 (09:08→12:58)
[2019-03-22] MEDS: BUDESONIDE NEBS 0.5 MG/2 ML INH NEB SCH (09:21)
[2019-03-22] MEDS: IPRATROPIUM/ALBUTEROL 3 ML VIAL INH SCH ×2 (09:21→14:37)
--- NOTE | 2019-03-22 10:26 | PN ---
SUPERVISING PHYSICIAN: Chilango Fink MD DATE: 03/21/2019 SUBJECTIVE: The patient was to be discharged today but he had increased coughing and congestion as well as shortness of breath. Otherwise, he has no chest pain, nausea or vomiting.. OBJECTIVE: VITAL SIGNS: Temperature 98.1, heart rate 74, blood pressure 130/74, respiratory rate 20, oxygen saturation 98% on room air. RESPIRATORY: Scattered rhonchi throughout. Earlier in the day his lungs had been essentially clear, most of the congestion is in the upper airway. CARDIAC: Regular rate and rhythm. GI: Abdomen soft, nondistended, non-tender. Bowel sounds are positive. EXTREMITIES: The lymphedema to his lower extremities continues to improve. He does have a small amount of weeping to the lower extremities. Bilateral pedal pulses are palpable at +1. NEURO: He is awake, alert, and oriented x3. LABORATORY: WBC 4.1 with a hemoglobin of 10.2, hematocrit 30.2. Sodium 127, potassium 3.9, chloride 100, carbon dioxide 18, serum osmolality 257.3, calcium 8.2, magnesium 1.8. Preliminary blood cultures show no growth after 48 hours. Chest x-ray is pending. ASSESSMENT: 1. Hyponatremia, acute on chronic, with an admitting sodium of 121. 2. Altered mental status that is acute with continuing difficulty arousing the patient. 3. Hypoxia. 4. Chronic severe lower extremity lymphedema that most likely contributes to his hyponatremia. 5. History of chronic obstructive pulmonary disease without signs or symptoms of exacerbation. 6. History of chronic inflammatory demyelinating polyneuropathy. 7. Chronic pain syndrome on multiple narcotics, managed by Dr. Fink. 8. Hypertension, controlled. 9. History of atrial fibrillation with previous ablation therapy. 10. Peripheral neuropathy. PLAN: We will continue present supportive care. I have added guaifenesin to his medication and see how he does overnight. Hopefully, he can be discharged tomorrow morning. Will hold on any labs at this time and will continue to monitor him closely and follow as needed. #[id number] [facility]
[2019-03-22 15:03] VITALS: BP 118/71; TEMP 98; O2SAT 96
--- NOTE | 2019-03-27 14:40 | DS ---
SUPERVISING PHYSICIAN: Chilango Fink MD DISCHARGE DIAGNOSIS: 1. Hyponatremia, acute on chronic, with an admitting sodium of 121. 2. Altered mental status that is acute with continuing difficulty arousing the patient. 3. Hypoxia. 4. Chronic severe lower extremity lymphedema that most likely contributes to his hyponatremia. 5. History of chronic obstructive pulmonary disease without signs or symptoms of exacerbation. 6. History of chronic inflammatory demyelinating polyneuropathy. 7. Chronic pain syndrome on multiple narcotics, managed by Dr. Fink. 8. Hypertension, controlled. 9. History of atrial fibrillation with previous ablation therapy. 10. Peripheral neuropathy. HISTORY OF PRESENT ILLNESS: This is a 73-year-old male patient who came to the Emergency Department with confusion and altered mental status. The family also had some complaints of lower extremity edema, although he does have chronic lower extremity lymphedema. His says that over the last few days prior to admission, he has been slightly confused and progressed to the point that he was obtunded upon arrival to the Emergency Room. There had been no vomiting or diarrhea. He did awaken occasionally to answer some questions, but then he would fall back asleep almost immediately. His initial vital signs showed temperature 99.6, heart rate 141, blood pressure 106/71, respiratory rate 22, O2 saturation 96% on 3 liters nasal cannula. Lab was done and he had WBC 6.5, hemoglobin 12, hematocrit 36.1. Blood gas showed pCO2 29, pO2 79, bicarb 15.2, pH 7.35, ABG saturation of 95.8%. Chemistries show sodium 121, potassium 4.6, chloride 96, carbon dioxide 14, anion 15.6, BUN 22, creatinine 1.08, serum osmolality 246.8, lactic acid 1.2, calcium 8.5, magnesium 1.2. Ammonia 25, creatinine kinase 344, CK-MB 5, BNP 132. Urinalysis was negative. He does have a Iniguez catheter placed in the Emergency Room. Blood cultures were done. Head CT showed no acute intracranial abnormality with senescent changes. His chest x-ray showed stable size cardiac silhouette, partially calcified aorta, suboptimal inspiratory volume, bilateral perihilar fullness may represent vascular crowding versus vascular congestion. No pleural effusion or pneumothorax. The patient was given ceftriaxone, DuoNeb and Solu-Medrol. He was admitted to the hospital. HOSPITAL COURSE: The patient was admitted in stable condition to the Medical/Surgical Unit. Neuro checks and close monitoring were initiated. Physical therapy was consulted and he was on DVT prophylaxis. His home medications were verified and were restarted as soon as the patient's mental status improved. Over the next 24 hours, he did wake up and was mostly at his baseline. He was given magnesium supplementation. His labs was followed closely. He was to be discharged, but he complained of congestion in his chest that was worse than previously. He was kept overnight and an x-ray was done. It was stable and he improved with guaifenesin. His lymphedema to his lower extremities was mostly at baseline. He will be discharged in stable condition. LABORATORY: WBCs were as high as 7,800 with today's being 4,100. Hemoglobin 10.2, and hematocrit 30.2 and are stable. He started with a left shift and that has normalized. Sodium was chronically low and improved to 127 with a stable potassium of 3.9. Chloride 100. Carbon dioxide 18. BUN 18, creatinine 0.02. Serum osmolality improved to 257.3. Magnesium 1.8. Blood cultures showed no growth after 3 days. RADIOLOGY: Followup chest x-ray showed stable appearance of the chest. DISCHARGE PLAN: The patient will be discharged home in stable condition. He is to resume his previous diet and increase his activity as tolerated. He is to follow with Dr. Fink, his primary care physician, within 1 to 2 weeks. He is to resume his previous medications. There have been no changes in his medications. He is to return to the hospital or followup with Dr. Fink for any problems or complications. DISCHARGE MEDICATIONS: 1. Zanaflex. 2. Zocor. 3. Myrbetriq. 4. Methadone. 5. Ferrous sulfate. 6. Pradaxa. 7. Gabapentin. 8. Potassium chloride. 9. Tamsulosin. 10. Oxycodone. 11. Vitamin D. 12. Diltiazem. 13. Pulmicort. 14. Sodium chloride. 15. Colace. 16. Finasteride. 17. Fluticasone nasal spray. 18. Guaifenesin. #[id number] [facility]
== END 2019-03-22 14:30 | disposition home or self-care (01) | DRG 641 ==
LOC: ER 11:48 → MS 17:18 → OBSVTOIN 17:18
PROVIDERS: ADMIT Nurse Practitioner Acute Care; ATTEND Nurse Practitioner Acute Care
DX: E87.1 Hypo-osmolality and hyponatremia (principal); G61.81 Chronic inflammatory demyelinating polyneuritis; J44.1 Chronic obstructive pulmonary disease with (acute) exacerbation; R09.02 Hypoxemia; G89.4 Chronic pain syndrome; I10 Essential (primary) hypertension; I48.91 Unspecified atrial fibrillation; G62.9 Polyneuropathy, unspecified; I89.0 Lymphedema, not elsewhere classified; I87.2 Venous insufficiency (chronic) (peripheral); N41.1 Chronic prostatitis; Z96.653 Presence of artificial knee joint, bilateral; Z79.891 Long term (current) use of opiate analgesic; Z79.1 Long term (current) use of non-steroidal anti-inflammatories (NSAID); Z79.899 Other long term (current) drug therapy

== ENCOUNTER → 2019-04-01 | Outpatient (CLI) | payer MEDICARE | LOC: GMAM 16:48 | PROVIDERS: ATTEND Family Medicine | DX: R41.82 Altered mental status, unspecified (principal); I10 Essential (primary) hypertension ==

== ENCOUNTER 2019-04-06 13:47 | Emergency (ER) | payer MEDICARE ==
[2019-04-06] MEDS ORDERED: VANCOMYCIN HCL INJ 1,000 MG in SODIUM CHLORIDE 0.9% 250ML 250 ML IVPB ONE (14:09)
[2019-04-06] MEDS ORDERED: PIPERACILLIN/TAZOBACTAM 3.375 GM in SODIUM CHLORIDE 0.9% 100ML 100 ML IVPB ONE (14:09)
--- NOTE | 2019-04-06 14:13 | ED.PDOC ---
History of Present Illness - General Chief Complaint: Neuro Symptoms/Deficits Time Seen by Provider: 04/06/19 13:56 - History of Present Illness Initial Comments: 73 yo M PMH Hyponatremia COPD AFib on asa and Prodaxa and chronic lymphedema PMD Laury Fink presents to ED Daughter at bedside c/o altered mental status decreased urine out put and decreased PO intake x 1 day. Through daughter denies fever chills nausea vomiting diarrhea chest pain sob diaphoresis. Was hypoxic to 88% denies drinking or smoking admits decreased rest and appetite no other c/o today. Allergies/Adverse Reactions: Allergies NO KNOWN ALLERGY Allergy (Verified 03/19/19 11:56) Home Medications: Ambulatory Orders Dabigatran Etexilate Mesylate [Pradaxa] 150 mg PO BID 11/07/18 Ferrous Sulfate 325 mg PO DAILY 11/07/18 Methadone HCl [Methadone] 20 mg PO BID 11/07/18 Mirabegron [Myrbetriq] 50 mg PO DAILY 11/07/18 Simvastatin [Zocor] 20 mg PO BEDTIME 11/07/18 Tizanidine HCl [Zanaflex] 2 mg PO QID PRN 11/07/18 Gabapentin 800 mg PO TID 11/12/18 Potassium Chloride [K-Tab] 20 meq PO DAILY #7 tab 11/14/18 Cholecalciferol [Decara] 5,000 unit PO DAILY 02/27/19 Oxycodone HCl 60 mg PO Q4H PRN 02/27/19 Tamsulosin [Flomax] 0.4 mg PO QD 02/27/19 Budesonide Nebs [Pulmicort Respules] 0.5 mg NEB BID 03/20/19 Diltiazem HCl Coated Beads [Diltiazem Cd] 240 mg PO DAILY 03/20/19 Docusate Sodium [Colace] 100 mg PO BID 03/20/19 Finasteride [Proscar] 5 mg PO DAILY 03/20/19 Fluticasone Prop 0.05% Nasal [Flonase Nasal Wilson] 2 spray BNAS BID 03/20/19 Sodium Chloride 1 gm PO QID 03/20/19 guaiFENesin ER TAB [Mucinex Tab] 1,200 mg PO BID tab 03/22/19 Review of Systems - Review of Systems EENTM: States: see HPI Respiratory: States: see HPI Gastrointestinal/Abdominal: States: see HPI Genitourinary: States: see HPI Musculoskeletal: States: see HPI Skin: States: see HPI Neurological: States: see HPI Endocrine: States: see HPI All other Systems: Reviewed and Negative Past Medical History (General) - Patient Medical History Hx Seizures: No Hx Stroke: No Hx Asthma: No Hx of COPD: Yes Hx Cardiac Disorders: Yes - A-fib, arrhythmias Hx Congestive Heart Failure: Yes Hx Pacemaker: No Hx Hypertension: Yes Hx Diabetes: No Hx Cancer: No Hx MRSA: No - Vaccination History Hx Tetanus, Diphtheria Vaccination: No Hx Influenza Vaccination: Yes Hx Pneumococcal Vaccination: Yes - Social History Hx Tobacco Use: No Hx Alcohol Use: Yes Hx Substance Use: No Hx Substance Use Treatment: No Hx Physical Abuse: No Hx Emotional Abuse: No Family Medical History - Family History Mother Hx Family Congestive Heart Failure: Yes Father Family History: Unknown Living Status: Hx Family Cancer: Yes - lung Physical Exam - Physical Exam General Appearance: Frail, No apparent distress Eye Exam: bilateral normal Ears, Nose, Throat: normal ENT inspection Neck: non-tender, supple Respiratory: no respiratory distress, rales Cardiovascular/Chest: regular rate, rhythm Gastrointestinal/Abdominal: non tender, soft Rectal Exam: deferred Back Exam: normal inspection Extremity: normal range of motion, non-tender Neurologic: other - non verbal Skin Exam: other - bilateral lower extremity edema and thickened skin, chronic appearing Lymphatic: other - likely lymphedema chronic appearing to lower extremities Progress - Progress Progress: 04/06/19 14:10 A/P-Altered Mental Status, COPD Exacerbation, Hypoxia, Generalized Weakness, Failure to Thrive-iv sepsis work up zosyn vancomycin reassess 04/06/19 14:18 04/06/19 14:43 Add Dx-Hyponatremia, Hyperkalemia fluids hyperkalemia cocktail, acute renal f ailure, leukocytosis 04/06/19 14:46 Laboratory Tests 04/06/19 04/06/19 04/06/19 14:00 14:00 14:00 WBC 15.8 H RBC 4.92 Hgb 13.6 L Hct 41.4 L MCV 84.2 MCH 27.7 MCHC 32.9 L RDW 16.7 H Plt Count 384 MPV 8.8 Absolute Neuts (auto) 14.00 H Absolute Lymphs (auto) 0.70 L Absolute Monos (auto) 0.90 H Absolute Eos (auto) 0.00 Absolute Basos (auto) 0.20 H Neutrophils % 88.7 H Lymphocytes % 4.1 L Monocytes % 5.9 Eosinophils % 0.1 L Basophils % 1.2 PTT (SP) Sodium 113 L* Potassium 5.9 H Chloride 85 L Carbon Dioxide 13 L* Anion Gap 20.9 H BUN 38 H Creatinine 1.47 H BUN/Creatinine Ratio 25.9 H Random Glucose 104 Serum Osmolality 234.8 L* Calcium 9.5 Total Bilirubin 0.8 AST 23 ALT 18 Alkaline Phosphatase 91 Troponin I 0.02 B-Natriuretic Peptide Serum Total Protein 6.7 Albumin 3.0 L Globulin 3.7 H Albumin/Globulin Ratio 0.8 L Lipase 31 04/06/19 04/06/19 14:00 14:00 WBC RBC Hgb Hct MCV MCH MCHC RDW Plt Count MPV Absolute Neuts (auto) Absolute Lymphs (auto) Absolute Monos (auto) Absolute Eos (auto) Absolute Basos (auto) Neutrophils % Lymphocytes % Monocytes % Eosinophils % Basophils % PTT (SP) Cancelled Sodium Potassium Chloride Carbon Dioxide Anion Gap BUN Creatinine BUN/Creatinine Ratio Random Glucose Serum Osmolality Calcium Total Bilirubin AST ALT Alkaline Phosphatase Troponin I B-Natriuretic Peptide 18.9 Serum Total Protein Albumin Globulin Albumin/Globulin Ratio Lipase 04/06/19 14:47 04/06/19 14:52 Spoke to Khris Noble hospitalist who knows patient and Amaury Young [employer] who also knows patient well will transfer [facility] for ICU 04/06/19 15:04 Laboratory Tests 04/06/19 04/06/19 04/06/19 14:00 14:00 14:00 WBC 15.8 H RBC 4.92 Hgb 13.6 L Hct 41.4 L MCV 84.2 MCH 27.7 MCHC 32.9 L RDW 16.7 H Plt Count 384 MPV 8.8 Absolute Neuts (auto) 14.00 H Absolute Lymphs (auto) 0.70 L Absolute Monos (auto) 0.90 H Absolute Eos (auto) 0.00 Absolute Basos (auto) 0.20 H Neutrophils % 88.7 H Lymphocytes % 4.1 L Monocytes % 5.9 Eosinophils % 0.1 L Basophils % 1.2 PT 19.4 H INR 1.96 H PTT (SP) 67.7 H* Sodium 113 L* Potassium 5.9 H Chloride 85 L Carbon Dioxide 13 L* Anion Gap 20.9 H BUN 38 H Creatinine 1.47 H BUN/Creatinine Ratio 25.9 H Random Glucose 104 Serum Osmolality 234.8 L* Lactic Acid Calcium 9.5 Total Bilirubin 0.8 AST 23 ALT 18 Alkaline Phosphatase 91 Troponin I B-Natriuretic Peptide Serum Total Protein 6.7 Albumin 3.0 L Globulin 3.7 H Albumin/Globulin Ratio 0.8 L Lipase 31 04/06/19 04/06/19 04/06/19 14:00 14:00 14:00 WBC RBC Hgb Hct MCV MCH MCHC RDW Plt Count MPV Absolute Neuts (auto) Absolute Lymphs (auto) Absolute Monos (auto) Absolute Eos (auto) Absolute Basos (auto) Neutrophils % Lymphocytes % Monocytes % Eosinophils % Basophils % PT INR PTT (SP) Cancelled Sodium Potassium Chloride Carbon Dioxide Anion Gap BUN Creatinine BUN/Creatinine Ratio Random Glucose Serum Osmolality Lactic Acid Calcium Total Bilirubin AST ALT Alkaline Phosphatase Troponin I 0.02 B-Natriuretic Peptide 18.9 Serum Total Protein Albumin Globulin Albumin/Globulin Ratio Lipase 04/06/19 14:07 WBC RBC Hgb Hct MCV MCH MCHC RDW Plt Count MPV Absolute Neuts (auto) Absolute Lymphs (auto) Absolute Monos (auto) Absolute Eos (auto) Absolute Basos (auto) Neutrophils % Lymphocytes % Monocytes % Eosinophils % Basophils % PT INR PTT (SP) Sodium Potassium Chloride Carbon Dioxide Anion Gap BUN Creatinine BUN/Creatinine Ratio Random Glucose Serum Osmolality Lactic Acid 1.5 Calcium Total Bilirubin AST ALT Alkaline Phosphatase Troponin I B-Natriuretic Peptide Serum Total Protein Albumin Globulin Albumin/Globulin Ratio Lipase 04/06/19 15:19 Laboratory Tests 04/06/19 04/06/19 04/06/19 14:00 14:00 14:00 WBC 15.8 H RBC 4.92 Hgb 13.6 L Hct 41.4 L MCV 84.2 MCH 27.7 MCHC 32.9 L RDW 16.7 H Plt Count 384 MPV 8.8 Absolute Neuts (auto) 14.00 H Absolute Lymphs (auto) 0.70 L Absolute Monos (auto) 0.90 H Absolute Eos (auto) 0.00 Absolute Basos (auto) 0.20 H Neutrophils % 88.7 H Lymphocytes % 4.1 L Monocytes % 5.9 Eosinophils % 0.1 L Basophils % 1.2 PT 19.4 H INR 1.96 H PTT (SP) 67.7 H* Sodium 113 L* Potassium 5.9 H Chloride 85 L Carbon Dioxide 13 L* Anion Gap 20.9 H BUN 38 H Creatinine 1.47 H BUN/Creatinine Ratio 25.9 H Random Glucose 104 Serum Osmolality 234.8 L* Lactic Acid Calcium 9.5 Total Bilirubin 0.8 AST 23 ALT 18 Alkaline Phosphatase 91 Troponin I B-Natriuretic Peptide Serum Total Protein 6.7 Albumin 3.0 L Globulin 3.7 H Albumin/Globulin Ratio 0.8 L Lipase 31 04/06/19 04/06/19 04/06/19 14:00 14:00 14:00 WBC RBC Hgb Hct MCV MCH MCHC RDW Plt Count MPV Absolute Neuts (auto) Absolute Lymphs (auto) Absolute Monos (auto) Absolute Eos (auto) Absolute Basos (auto) Neutrophils % Lymphocytes % Monocytes % Eosinophils % Basophils % PT INR PTT (SP) Cancelled Sodium Potassium Chloride Carbon Dioxide Anion Gap BUN Creatinine BUN/Creatinine Ratio Random Glucose Serum Osmolality Lactic Acid Calcium Total Bilirubin AST ALT Alkaline Phosphatase Troponin I 0.02 B-Natriuretic Peptide 18.9 Serum Total Protein Albumin Globulin Albumin/Globulin Ratio Lipase 04/06/19 14:07 WBC RBC Hgb Hct MCV MCH MCHC RDW Plt Count MPV Absolute Neuts (auto) Absolute Lymphs (auto) Absolute Monos (auto) Absolute Eos (auto) Absolute Basos (auto) Neutrophils % Lymphocytes % Monocytes % Eosinophils % Basophils % PT INR PTT (SP) Sodium Potassium Chloride Carbon Dioxide Anion Gap BUN Creatinine BUN/Creatinine Ratio Random Glucose Serum Osmolality Lactic Acid 1.5 Calcium Total Bilirubin AST ALT Alkaline Phosphatase Troponin I B-Natriuretic Peptide Serum Total Protein Albumin Globulin Albumin/Globulin Ratio Lipase 04/06/19 15:25 Dr. Jordan Accepts at 03:25pm - Results/Orders Results/Orders: EKG-rate controlled afib 61bpm Departure - Departure Clinical Impression: Hyponatremia, Hyperkalemia, COPD with exacerbation, Weak Altered mental status Qualifiers: Altered mental status type: unspecified Qualified Code(s): R41.82 - Altered mental status, unspecified Renal failure Qualifiers: Renal failure chronicity: unspecified chronicity Qualified Code(s): N19 - Unspecified kidney failure Failure to thrive Qualifiers: Failure to thrive age range: in adult Qualified Code(s): R62.7 - Adult failure to thrive Time of Disposition: 15:28 Disposition: Transfer to Hospital Condition: Fair Departure Forms: ED Discharge - Pt. Copy, Patient Portal Self Enrollment Referrals: Chilango Fink MD [Primary Care Provider] - 1-2 Weeks Home Medications: Ambulatory Orders Dabigatran Etexilate Mesylate [Pradaxa] 150 mg PO BID 11/07/18 Ferrous Sulfate 325 mg PO DAILY 11/07/18 Methadone HCl [Methadone] 20 mg PO BID 11/07/18 Mirabegron [Myrbetriq] 50 mg PO DAILY 11/07/18 Simvastatin [Zocor] 20 mg PO BEDTIME 11/07/18 Tizanidine HCl [Zanaflex] 2 mg PO QID PRN 11/07/18 Gabapentin 800 mg PO TID 11/12/18 Potassium Chloride [K-Tab] 20 meq PO DAILY #7 tab 11/14/18 Cholecalciferol [Decara] 5,000 unit PO DAILY 02/27/19 Oxycodone HCl 60 mg PO Q4H PRN 02/27/19 Tamsulosin [Flomax] 0.4 mg PO QD 02/27/19 Budesonide Nebs [Pulmicort Respules] 0.5 mg NEB BID 03/20/19 Diltiazem HCl Coated Beads [Diltiazem Cd] 240 mg PO DAILY 03/20/19 Docusate Sodium [Colace] 100 mg PO BID 03/20/19 Finasteride [Proscar] 5 mg PO DAILY 03/20/19 Fluticasone Prop 0.05% Nasal [Flonase Nasal Wilson] 2 spray BNAS BID 03/20/19 Sodium Chloride 1 gm PO QID 03/20/19 guaiFENesin ER TAB [Mucinex Tab] 1,200 mg PO BID tab 03/22/19
[2019-04-06] MEDS ORDERED: VANCOMYCIN HCL INJ 1,000 MG VIAL IVPB ONE (14:14)
[2019-04-06] MEDS ORDERED: SODIUM CHLORIDE 0.9% 250ML 250 ML ONE (14:14)
[2019-04-06] MEDS ORDERED: SODIUM CHLORIDE 0.9% 100ML 100 ML IVPB ONE (14:14)
[2019-04-06] MEDS ORDERED: PIPERACILLIN/TAZOBACTAM 3.375 GM VIAL IVPB ONE (14:14)
[2019-04-06] MEDS ORDERED: SODIUM CHL 0.9% 50ML VIAL 3 ML, ALBUTEROL SULFATE NEBS 15 MG NEB ONE ×2 (14:43)
[2019-04-06] MEDS ORDERED: CALCIUM GLUCONATE INJ 1 GM/10 ML VIAL IV ONE (14:43)
[2019-04-06] MEDS ORDERED: SODIUM CHLORIDE 0.9% 1000ML 1,000 ML IVS ONE (14:45)
[2019-04-06] MEDS ORDERED: DEXAMETHASONE INJ 10 MG/ML VIAL IV ONE (14:49)
[2019-04-06] MEDS ORDERED: SODIUM CHLORIDE 0.9% 50 ML VIAL ONE (14:51)
[2019-04-06] MEDS ORDERED: ALBUTEROL SULFATE 2.5 MG/3 ML VIAL NEB ONE (14:51)
--- NOTE | 2019-04-06 15:36 | RAD ---
EXAM DESCRIPTION: Chest,1 View CLINICAL HISTORY: 73 years Male, AMS COMPARISON: March 21, 2019 TECHNIQUE: AP portable chest. FINDINGS: Marked deterioration of the lumbar spine with small lung volumes and hazy patchy density in both parahilar as well as peripheral mid and lower lung field distribution consistent with developing acute pneumonitis or early vascular congestion. Heart size remains relatively normal with tortuous calcified aorta. Significant pleural effusions are not apparent. Marked granulomatous catrina calcification in the mediastinum and right hilum is evident. Chronic elevation of the right hemidiaphragm is again seen. IMPRESSION: Abnormal deteriorated appearance of the chest with small lung volumes hazy alveolar changes right parahilar and peripheral mid and lower left lung field consistent with acute edema or pneumonitis. Heart size remains normal with borderline vascular prominence centrally without overt failure. Electronically signed by: Chilango Tineo MD 04/06/2019 3:34 PM [employer]
[2019-04-06 16:15] VITALS: TEMP 96.7
[2019-04-06 16:16] VITALS: BP 120/72; O2SAT 99
== END 2019-04-06 16:25 | disposition short-term general hospital (02) ==
LOC: ER 13:47
DX: J44.1 Chronic obstructive pulmonary disease with (acute) exacerbation (principal); R41.82 Altered mental status, unspecified; N18.9 Chronic kidney disease, unspecified; R62.7 Adult failure to thrive; R53.1 Weakness; E87.1 Hypo-osmolality and hyponatremia; E87.5 Hyperkalemia; I48.91 Unspecified atrial fibrillation; I50.9 Heart failure, unspecified; I13.0 Hypertensive heart and chronic kidney disease with heart failure and stage 1 through stage 4 chronic kidney disease, or unspecified chronic kidney disease; Z79.82 Long term (current) use of aspirin; Z79.01 Long term (current) use of anticoagulants; Z79.899 Other long term (current) drug therapy
CPT/HCPCS: 36415; 71045; 80053; 81001; 83605; 83690; 83880; 84484; 85025; 85610; 85730; 87040; 93005; 94644; A4216; J1100; J2543; J3370; J7030; J7050; J7611

== ENCOUNTER 2019-04-17 22:48 | Emergency (ER) | payer MEDICARE ==
[2019-04-17] MEDS ORDERED: IPRATROPIUM/ALBUTEROL 3 ML VIAL NEB ONE ×2 (22:54→22:57)
[2019-04-17] MEDS ORDERED: SODIUM CHLORIDE 0.9% (FLUSH) 10 ML SYG IV PRN (22:55)
[2019-04-17] MEDS ORDERED: ACETAMINOPHEN 500 MG TAB PO ONE (22:55)
[2019-04-17] MEDS ORDERED: SODIUM CHLORIDE 0.9% 1000ML 1,000 ML IVS ONE (22:55)
[2019-04-17] MEDS ORDERED: cefTRIAXone SODIUM 2 GM in SODIUM CHL 0.9% 100ML MINI-BAG 100 ML IVPB ONE (22:55)
[2019-04-17] MEDS ORDERED: SODIUM CHL 0.9% 100ML MINI-BAG 100 ML IVPB ONE (23:11)
--- NOTE | 2019-04-17 23:22 | ED.PDOC ---
History of Present Illness - General Chief Complaint: Respiratory Problem Stated Complaint: difficulty breathing Time Seen by Provider: 04/17/19 22:54 Source: patient, RN notes reviewed, Vital Signs reviewed, EMS notes reviewed, family, EMS, care home records Exam Limitations: clinical condition - History of Present Illness Timing/Duration: 1/2 hour Severity: severe Activities at Onset: none Possible Cause: chronic episodes Worsening Factors: nothing Associated Symptoms: cough, fever Respiratory Risk Factors: no cause identified Allergies/Adverse Reactions: Allergies NO KNOWN ALLERGY Allergy (Verified 04/18/19 01:06) Home Medications: Ambulatory Orders Dabigatran Etexilate Mesylate [Pradaxa] 150 mg PO BID 11/07/18 Ferrous Sulfate 325 mg PO DAILY 11/07/18 Methadone HCl [Methadone] 20 mg PO BID 11/07/18 Mirabegron [Myrbetriq] 50 mg PO DAILY 11/07/18 Simvastatin [Zocor] 20 mg PO BEDTIME 11/07/18 Tizanidine HCl [Zanaflex] 2 mg PO QID PRN 11/07/18 Gabapentin 800 mg PO TID 11/12/18 Potassium Chloride [K-Tab] 20 meq PO DAILY #7 tab 11/14/18 Cholecalciferol [Decara] 5,000 unit PO DAILY 02/27/19 Oxycodone HCl 60 mg PO Q4H PRN 02/27/19 Tamsulosin [Flomax] 0.4 mg PO QD 02/27/19 Budesonide Nebs [Pulmicort Respules] 0.5 mg NEB BID 03/20/19 Diltiazem HCl Coated Beads [Diltiazem Cd] 240 mg PO DAILY 03/20/19 Docusate Sodium [Colace] 100 mg PO BID 03/20/19 Finasteride [Proscar] 5 mg PO DAILY 03/20/19 Fluticasone Prop 0.05% Nasal [Flonase Nasal [place]] 2 spray BNAS BID 03/20/19 Sodium Chloride 1 gm PO QID 03/20/19 guaiFENesin ER TAB [Mucinex Tab] 1,200 mg PO BID tab 03/22/19 Cefdinir 300 mg PO BID 04/18/19 Hydrocortisone [Cortef] 15 mg PO DAILY 04/18/19 Pantoprazole Tablet [Protonix] 40 mg PO ACBK 04/18/19 Review of Systems - Review of Systems Constitutional: States: chills, fever, malaise Respiratory: States: cough, short of breath Cardiology: States: edema. Denies: chest pain Unable to Obtain Due To: clinical condition Past Medical History (General) - Patient Medical History Hx Seizures: No Hx Stroke: No Hx Asthma: No Hx of COPD: Yes Hx Cardiac Disorders: Yes - A-fib, arrhythmias Hx Congestive Heart Failure: Yes Hx Pacemaker: No Hx Hypertension: Yes Hx Diabetes: No Hx Cancer: No Hx MRSA: No Surgical History: other - Vaccination History Hx Tetanus, Diphtheria Vaccination: No Hx Influenza Vaccination: Yes Hx Pneumococcal Vaccination: Yes - Social History Hx Tobacco Use: No Hx Alcohol Use: Yes Hx Substance Use: No Hx Substance Use Treatment: No Hx Physical Abuse: No Hx Emotional Abuse: No - Activities of Daily Living [facility] Living (if applicable):: [facility] Family Medical History - Family History Mother Hx Family Congestive Heart Failure: Yes Father Family History: Unknown Living Status: Hx Family Cancer: Yes - lung Physical Exam - Physical Exam General Appearance: Frail, Obvious distress, Ill Appearing Eyes, Ears, Nose, Throat Exam: normal ENT inspection, TMs normal, pharynx normal Neck: supple, other - No JVD Respiratory: respiratory distress, rhonchi, other - Very dyspneic, 1-2 word sentences, tachypneic, Coarse breath sounds and wheezing in all lung [place] Cardiovascular/Chest: no JVD, tachycardia, irregularly irregular Gastrointestinal/Abdominal: non tender, soft Extremity: non-tender, pedal edema - Lymphedema to both lower extremities, advanced Neurologic: alert, oriented x 3 Skin Exam: warm/dry, other - Lymphedema to both lower extremities Lymphatic: no adenopathy Progress - Progress Progress: 04/18/19 00:12 Further history obtained from patient's daughter. Patient has been admitted several times since 2018. He has frequent episodes of hyponatremia, A. fib. He was just admitted to the hospital 2 weeks ago in [place]. He had a prolonged hospitalization at that time, had a central line. Was eventually discharged to halfway facility 1 week ago. He became acutely short of breath tonight. 04/18/19 00:25 Multiple times by nurse and by lab to obtain blood and place IV. Unsuccessful. Patient will likely need prolonged admission, possible ICU. Will place central line 04/18/19 01:[address] Anne at [facility]. Will accept his transfer to ED. 04/18/19 02:01 Recheck. Patient becoming somewhat agitated and refusing to wear nonrebreather mask. I converted him to nasal cannula 4 L, sats steady at 91 to 92%. Heart rate improved to low 100s after diltiazem. - Results/Orders Results/Orders: Laboratory Tests 04/17/19 04/17/19 04/17/19 01:05 01:05 01:05 WBC 17.4 H RBC 3.89 L Hgb 10.7 L Hct 33.0 L MCV 85.0 MCH 27.6 MCHC 32.5 L RDW 17.7 H Plt Count 179 MPV 8.4 Absolute Neuts (auto) 16.60 H Absolute Lymphs (auto) 0.10 L Absolute Monos (auto) 0.60 Absolute Eos (auto) 0.00 Absolute Basos (auto) 0.00 Neutrophils % 95.7 H Lymphocytes % 0.8 L Monocytes % 3.2 Eosinophils % 0.0 L Basophils % 0.3 PT 13.1 H INR 1.32 H PTT (SP) 41.5 H pCO2 pO2 HCO3 ABG pH ABG O2 Saturation ABG Base Excess ABG Deoxyhemoglobin Oxyhemoglobin % Carboxyhemoglobin % Methemoglobin % Sat Calc Total Hemoglobin Sodium 131 L Potassium 4.7 Chloride 103 Carbon Dioxide 22 Anion Gap 10.7 L BUN 15 Creatinine 0.90 BUN/Creatinine Ratio 16.7 Random Glucose 78 Serum Osmolality 262.4 L Lactic Acid Calcium 8.2 L Total Bilirubin 0.5 AST 19 ALT 13 Alkaline Phosphatase 49 Creatine Kinase 40 CK-MB (CK-2) 1.4 CK-MB (CK-2) % Not Reportable Troponin I < 0.02 Serum Total Protein 5.3 L Albumin 2.6 L Globulin 2.7 Albumin/Globulin Ratio 1.0 L 04/17/19 04/18/19 23:30 01:05 WBC RBC Hgb Hct MCV MCH MCHC RDW Plt Count MPV Absolute Neuts (auto) Absolute Lymphs (auto) Absolute Monos (auto) Absolute Eos (auto) Absolute Basos (auto) Neutrophils % Lymphocytes % Monocytes % Eosinophils % Basophils % PT INR PTT (SP) pCO2 35 pO2 72 L HCO3 20.9 ABG pH 7.373 ABG O2 Saturation 94.3 L ABG Base Excess -4.8 ABG Deoxyhemoglobin 5.6 H Oxyhemoglobin % 92.8 L Carboxyhemoglobin % 0.6 Methemoglobin % Sat 1.0 Calc Total Hemoglobin 11.1 L Sodium Potassium Chloride Carbon Dioxide Anion Gap BUN Creatinine BUN/Creatinine Ratio Random Glucose Serum Osmolality Lactic Acid 1.6 Calcium Total Bilirubin AST ALT Alkaline Phosphatase Creatine Kinase CK-MB (CK-2) CK-MB (CK-2) % Troponin I Serum Total Protein Albumin Globulin Albumin/Globulin Ratio - EKG/XRAY/CT EKG: Atrial, Fibrillation, RVR, nonspecific ST T wave Chg Comments: A. fib with RVR, rate of 134, left axis, inferior Q waves, poor R wave prog XRAY: chest - Right lower lobe infiltrate, new since 04/06/2019 - Additional EKG/XRAY/Consults XRAY #2: chest - Infiltrates unchanged. Left subclavian in good position in SVC. Procedures - Central Line Left Subclavian vein Central Line Lumen: triple Central Line Procedure Prep: sterile drapes applied, sterile dressing applied Anesthesia: Lidocaine cc's of anesthesia: 10 - Lidocaine 1% Central Line Post Position: sutured, good blood return, position confirmed w/ CXR Progress: Left subclavian line placed on first attempt. Hand cleansing was performed prior to procedure. The patient was prepped with chlorhexidine. Local anesthetic was injected in the skin, lidocaine 1%. Sterile drapes placed. I made 2 attempts in the right IJ with ultrasound guidance, but met significant resistance just beyond the tip of the needle. Was unable to thread guidewire. At this point, I converted to a left subclavian line. Anatomic landmarks were identified. Blood return on first attempt, guidewire threaded easily. Line advanced to 18 cm. Good blood flow through all 3 ports, venous appearing blood. Line was sutured in place, Biopatch placed. No complications. Patient tolerated well. Departure - Departure Clinical Impression: Sepsis, Respiratory failure with hypoxia, Pneumonia, Afib Disposition: Transfer to Hospital Condition: Fair Departure Forms: ED Discharge - Pt. Copy, Patient Portal Self Enrollment Referrals: Chilango Fink MD [Primary Care Provider] - 1-2 Weeks Home Medications: Ambulatory Orders Dabigatran Etexilate Mesylate [Pradaxa] 150 mg PO BID 11/07/18 Ferrous Sulfate 325 mg PO DAILY 11/07/18 Methadone HCl [Methadone] 20 mg PO BID 11/07/18 Mirabegron [Myrbetriq] 50 mg PO DAILY 11/07/18 Simvastatin [Zocor] 20 mg PO BEDTIME 11/07/18 Tizanidine HCl [Zanaflex] 2 mg PO QID PRN 11/07/18 Gabapentin 800 mg PO TID 11/12/18 Potassium Chloride [K-Tab] 20 meq PO DAILY #7 tab 11/14/18 Cholecalciferol [Decara] 5,000 unit PO DAILY 02/27/19 Oxycodone HCl 60 mg PO Q4H PRN 02/27/19 Tamsulosin [Flomax] 0.4 mg PO QD 02/27/19 Budesonide Nebs [Pulmicort Respules] 0.5 mg NEB BID 03/20/19 Diltiazem HCl Coated Beads [Diltiazem Cd] 240 mg PO DAILY 03/20/19 Docusate Sodium [Colace] 100 mg PO BID 03/20/19 Finasteride [Proscar] 5 mg PO DAILY 03/20/19 Fluticasone Prop 0.05% Nasal [Flonase Nasal [place]] 2 spray BNAS BID 03/20/19 Sodium Chloride 1 gm PO QID 03/20/19 guaiFENesin ER TAB [Mucinex Tab] 1,200 mg PO BID tab 03/22/19 Cefdinir 300 mg PO BID 04/18/19 Hydrocortisone [Cortef] 15 mg PO DAILY 04/18/19 Pantoprazole Tablet [Protonix] 40 mg PO ACBK 04/18/19 Critical Care Note - Critical Care Note Total Time (mins): 39 Comments: Time spent obtaining history from EMS, family, patient. Reviewing labs. Documentation. Reviewing ABG, chest x-ray. Discussion with other providers and arranging transfer. Patient has acute hypoxemic respiratory failure with suspected sepsis, potentially life-threatening condition that needed immediate intervention in the emergency department..
--- NOTE | 2019-04-18 00:26 | RAD ---
EXAM DESCRIPTION: XR Chest, 1 View CLINICAL HISTORY: 73 years Male SOB TECHNIQUE: One view of the chest. COMPARISON: No prior exams provided for comparison. FINDINGS: Stable bulky calcified right hilar lymph nodes. Increased bronchovascular markings and cardiac size may be related to low lung volumes. Cannot exclude a small focal right lower lobe infiltrate. No pleural effusion or pneumothorax. IMPRESSION: Cannot exclude a small focal right lower lobe infiltrate. Consider follow-up PA and lateral radiographs for further evaluation. Electronically signed by: Maira Obrien MD 04/18/2019 12:24 AM [facility]
[2019-04-18] MEDS ORDERED: LIDOCAINE 1% 10 ML VIAL INJ ONE (00:40)
--- NOTE | 2019-04-18 01:25 | RAD ---
EXAM DESCRIPTION: XR Chest, 1 View CLINICAL HISTORY: 73 years Male verify cental line TECHNIQUE: One view of the chest. COMPARISON: Comparison is made with the examination performed less than one hour earlier FINDINGS: Left subclavian central venous catheter tip projects over the SVC. Stable bulky calcified right hilar lymph nodes. Low lung volumes again noted. There does appear to be a small focal right medial lower lobe airspace infiltrate. No pleural effusion or pneumothorax. Stable cardiac size. IMPRESSION: Left subclavian central venous catheter in good position. Otherwise stable exam with a suspected right lower lobe infiltrate and bulky calcified lymph nodes. Electronically signed by: Maira Obrien MD 04/18/2019 1:23 AM [employer]
[2019-04-18] MEDS ORDERED: VANCOMYCIN HCL INJ 1,000 MG, VANCOMYCIN HCL INJ 500 MG in SODIUM CHLORIDE 0.9% 250ML 25... IVPB SCH (01:30)
[2019-04-18] MEDS ORDERED: VANCOMYCIN HCL INJ 500 MG VIAL ONE (01:32)
[2019-04-18] MEDS ORDERED: SODIUM CHLORIDE 0.9% 250ML 250 ML ONE (01:32)
[2019-04-18] MEDS ORDERED: VANCOMYCIN HCL INJ 1,000 MG VIAL IVPB ONE (01:32)
[2019-04-18 02:00] VITALS: BP 95/66; TEMP 101; O2SAT 92
[2019-04-18] MEDS ORDERED: fentaNYL CITRATE INJ 50 MCG/ML AMP IV ONE (02:20)
[2019-04-18] MEDS ORDERED: fentaNYL CITRATE INJ 50 MCG/ML AMP ONE (02:21)
== END 2019-04-18 02:30 | disposition short-term general hospital (02) ==
LOC: ER 22:48
DX: J96.91 Respiratory failure, unspecified with hypoxia (principal); A41.9 Sepsis, unspecified organism; J18.9 Pneumonia, unspecified organism; I48.91 Unspecified atrial fibrillation; R00.0 Tachycardia, unspecified; I50.9 Heart failure, unspecified; J44.9 Chronic obstructive pulmonary disease, unspecified; I11.0 Hypertensive heart disease with heart failure; Z79.899 Other long term (current) drug therapy
CPT/HCPCS: 36600; 71045; 80053; 81001; 82550; 82553; 82803; 82805; 83605; 84484; 85025; 85610; 85730; 87040; 87502; 93005; 94640; J0696; J3010; J3370; J7030; J7050; J7620

== ENCOUNTER → 2019-04-24 | Outpatient (CLI) | payer MEDICARE | LOC: GT 12:12 | PROVIDERS: ATTEND Family Medicine | DX: B95.62 Methicillin resistant Staphylococcus aureus infection as the cause of diseases classified elsewhere (principal); Z51.81 Encounter for therapeutic drug level monitoring ==

== ENCOUNTER → 2019-04-25 | Outpatient (CLI) | payer MEDICARE | LOC: GT 22:36 | PROVIDERS: ATTEND Family Medicine | DX: B95.62 Methicillin resistant Staphylococcus aureus infection as the cause of diseases classified elsewhere (principal) ==

== ENCOUNTER → 2019-04-26 | Outpatient (CLI) | payer MEDICARE | LOC: GT 13:43 | PROVIDERS: ATTEND Family Medicine | DX: B95.62 Methicillin resistant Staphylococcus aureus infection as the cause of diseases classified elsewhere (principal) ==

== ENCOUNTER → 2019-04-28 | Outpatient (CLI) | payer MEDICARE | LOC: GT 17:10 | PROVIDERS: ATTEND Family Medicine | DX: Z51.81 Encounter for therapeutic drug level monitoring (principal) ==

== ENCOUNTER 2019-04-30 08:03 | Emergency (ER) | payer MEDICARE ==
--- NOTE | 2019-04-30 08:22 | ED.PDOC ---
History of Present Illness - General Time Seen by Provider: 04/30/19 08:04 Source: patient, RN notes reviewed, Vital Signs reviewed, EMS notes reviewed Exam Limitations: no limitations - History of Present Illness Initial Comments: Pt is a 73 yo male that [facility] via [facility] for head injury. Pt is resident of [facility] and was attempting to transfer himself from bed to wheelchair and fell backward and hit back of head on the ground. Denies LOC. Denies LEAL, neck or back pain, nausea, CP, SOB or any other concerns. Denies taking any blood thinners. Occurred: this morning Severity: mild Head Injury Location: occipital Method of Injury: fell Loss of Consciousness: no loss of consciousness Allergies/Adverse Reactions: Allergies NO KNOWN ALLERGY Allergy (Verified 04/30/19 08:41) Home Medications: Ambulatory Orders Dabigatran Etexilate Mesylate [Pradaxa] 150 mg PO BID 11/07/18 Ferrous Sulfate 325 mg PO DAILY 11/07/18 Methadone HCl [Methadone] 20 mg PO BID 11/07/18 Mirabegron [Myrbetriq] 50 mg PO DAILY 11/07/18 Simvastatin [Zocor] 20 mg PO BEDTIME 11/07/18 Tizanidine HCl [Zanaflex] 2 mg PO QID PRN 11/07/18 Gabapentin 800 mg PO TID 11/12/18 Potassium Chloride [K-Tab] 20 meq PO DAILY #7 tab 11/14/18 Cholecalciferol [Decara] 5,000 unit PO DAILY 02/27/19 Oxycodone HCl 60 mg PO Q4H PRN 02/27/19 Tamsulosin [Flomax] 0.4 mg PO QD 02/27/19 Budesonide Nebs [Pulmicort Respules] 0.5 mg NEB BID 03/20/19 Diltiazem HCl Coated Beads [Diltiazem Cd] 240 mg PO DAILY 03/20/19 Docusate Sodium [Colace] 100 mg PO BID 03/20/19 Finasteride [Proscar] 5 mg PO DAILY 03/20/19 Fluticasone Prop 0.05% Nasal [Flonase Nasal [place]] 2 spray BNAS BID 03/20/19 Sodium Chloride 1 gm PO QID 03/20/19 guaiFENesin ER TAB [Mucinex Tab] 1,200 mg PO BID tab 03/22/19 Cefdinir 300 mg PO BID 04/18/19 Hydrocortisone [Cortef] 15 mg PO DAILY 04/18/19 Pantoprazole Tablet [Protonix] 40 mg PO ACBK 04/18/19 Review of Systems - Review of Systems Constitutional: Denies: chills, fever, weakness EENTM: Denies: blurred vision, throat pain Respiratory: Denies: cough, short of breath, stridor Cardiology: Denies: chest pain, edema, palpitations, syncope Musculoskeletal: Denies: back pain, neck pain Neurological: States: no symptoms reported All other Systems: Reviewed and Negative Past Medical History (General) - Patient Medical History Hx Seizures: No Hx Stroke: No Hx Asthma: No Hx of COPD: Yes Hx Cardiac Disorders: Yes - A-fib, arrhythmias Hx Congestive Heart Failure: Yes Hx Pacemaker: No Hx Hypertension: Yes Hx Diabetes: No Hx Cancer: No Hx MRSA: No - Vaccination History Hx Tetanus, Diphtheria Vaccination: No Hx Influenza Vaccination: Yes Hx Pneumococcal Vaccination: Yes - Social History Hx Tobacco Use: No Hx Alcohol Use: Yes Hx Substance Use: No Hx Substance Use Treatment: No Hx Physical Abuse: No Hx Emotional Abuse: No Family Medical History - Family History Mother Hx Family Congestive Heart Failure: Yes Father Family History: Unknown Living Status: Hx Family Cancer: Yes - lung Physical Exam - Physical Exam General Appearance: Alert, Comfortable, No apparent distress Head Injury: other - There is a 2x2 cm area of ecchymosis to occipital scalp. No laceration or bleeding Eye Exam: bilateral normal - PERRL ENT Exam: no evidence of ENT injury Neck Exam: non-tender, full range of motion Cardiovascular/Respiratory: regular rate, rhythm, normal peripheral pulses, normal breath sounds, no respiratory distress Gastrointestinal/Abdominal: non tender, soft, no pulsatile mass Back Exam: no CVA tenderness, no vertebral tenderness Extremity: other - FROM in all extremities without pain. no tenderness or deformity Mental Status: alert, oriented x 3 healthcare representative Exam: normal speech, PERRL Motor/Sensory: no motor deficit, no sensory deficit Skin Exam: normal color, warm/dry - [place] Coma Score Michael Total: 15 Progress - Progress Progress: 04/30/19 09:34 Pt presents to ED [facility]. Denies LOC, LEAL, neck pain or other injury. Has small contusion to posterior scalp that has been cleaned and dressed. CT's ordered to evaluate for ICH, fracture and are reassuring. Pt is alert and answering questions appropriately. Will DC back to NH for continued care. SRP given. - Results/Orders Results/Orders: CT Brain IMPRESSION: No acute intracranial pathologic process. 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 CT C Spine IMPRESSION: Negative for fracture or posttraumatic subluxation. Degenerative changes as described. Fluid in the trachea and bronchi, patchy right upper lobe infiltrate and left chest wall soft tissue emphysema. Consider chest CT for further evaluation. Departure - Departure Clinical Impression: Contusion of scalp Qualifiers: Encounter type: initial encounter Qualified Code(s): S00.03XA - Contusion of scalp, initial encounter Closed head injury Qualifiers: Encounter type: initial encounter Qualified Code(s): S09.90XA - Unspecified injury of head, initial encounter Time of Disposition: 09:32 Disposition: Discharge to SNF Condition: Good Diet: resume usual diet Activity: increase activity as tolerated Referrals: Chilango Fink MD [Primary Care Provider] - 1-2 Days Home Medications: Ambulatory Orders Dabigatran Etexilate Mesylate [Pradaxa] 150 mg PO BID 11/07/18 Ferrous Sulfate 325 mg PO DAILY 11/07/18 Methadone HCl [Methadone] 20 mg PO BID 11/07/18 Mirabegron [Myrbetriq] 50 mg PO DAILY 11/07/18 Simvastatin [Zocor] 20 mg PO BEDTIME 11/07/18 Tizanidine HCl [Zanaflex] 2 mg PO QID PRN 11/07/18 Gabapentin 800 mg PO TID 11/12/18 Potassium Chloride [K-Tab] 20 meq PO DAILY #7 tab 11/14/18 Cholecalciferol [Decara] 5,000 unit PO DAILY 02/27/19 Oxycodone HCl 60 mg PO Q4H PRN 02/27/19 Tamsulosin [Flomax] 0.4 mg PO QD 02/27/19 Budesonide Nebs [Pulmicort Respules] 0.5 mg NEB BID 03/20/19 Diltiazem HCl Coated Beads [Diltiazem Cd] 240 mg PO DAILY 03/20/19 Docusate Sodium [Colace] 100 mg PO BID 03/20/19 Finasteride [Proscar] 5 mg PO DAILY 03/20/19 Fluticasone Prop 0.05% Nasal [Flonase Nasal [place]] 2 spray BNAS BID 03/20/19 Sodium Chloride 1 gm PO QID 03/20/19 guaiFENesin ER TAB [Mucinex Tab] 1,200 mg PO BID tab 03/22/19 Cefdinir 300 mg PO BID 04/18/19 Hydrocortisone [Cortef] 15 mg PO DAILY 04/18/19 Pantoprazole Tablet [Protonix] 40 mg PO ACBK 04/18/19 Comments: Keep scalp wound clean and dry.
--- NOTE | 2019-04-30 09:12 | CT ---
EXAM DESCRIPTION: CT head without contrast CLINICAL HISTORY: trauma COMPARISON: Previous study March 19, 2019 TECHNIQUE: Noncontrast head CT was performed with routine protocol. FINDINGS: Soft tissue scalp hematoma of the posterior vertex region in the midline is noted. Bone window images are negative for underlying calvarial fracture. Normal smith-white matter differentiation. Ventricles and sulci are prominent with prominent extra-axial CSF spaces are unchanged from previous. Low density areas consistent with chronic microvascular ischemic disease of the cerebral white matter. No high density hemorrhage, focal edema or shift of the midline. No sulcal effacement. Normal orbital contents. Basilar cisterns appear clear. Intact calvarium with no fracture or lytic lesion. Normal aeration of tympanic cavities and mastoid air cells. Small amount of fluid in the right maxillary sinus with patchy opacification of posterior right ethmoid air cells.. Dentigerous cyst in the right maxillary sinus now measures 3.5 cm in AP dimension compared to 3.4 cm on previous study February 27, 2019. There is posterior displacement and remodeling of the posterior wall of the right maxillary sinus. Skull base appears intact. Symmetrical internal auditory canals. IMPRESSION: No acute intracranial pathologic process. 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 This exam was performed according to our departmental dose-optimization program, which includes automated exposure control, adjustment of the mA and/or kV according to patient size and/or use of iterative reconstruction technique. Total DLP equals 859.97 mGycm. Electronically signed by: Reed Cottrell MD 04/30/2019 9:10 AM [facility]
--- NOTE | 2019-04-30 09:21 | CT ---
EXAM DESCRIPTION: Cervical Spine CLINICAL HISTORY: trauma COMPARISON: None Available. TECHNIQUE: Cervical CT is performed with thin-section axial imaging. MPRs are created and reviewed as well. FINDINGS: Axial bone window images reveal intact ring of C1. No abnormal widening of the atlantodens interval. No fracture of the vertebral bodies or transverse processes or posterior elements. Lung apices appear clear. No cervical mass or adenopathy. Focal coarse calcification in the left thyroid lobe appears benign. Patchy infiltrate in the right upper lobe of the lung. Dense calcified lymph node in the right azygos region with narrowed appearance of the lower trachea and proximal main bronchi which could be intraluminal fluid. Prominent right paratracheal lymph nodes with prominent right hilum may represent adenopathy. Lymph nodes appeared similar on previous chest CT November 14, 2018. Patchy right apical infiltrate or scarring is a new development however. There is air in the left chest wall and a central line catheter is present coursing through the left subclavian vein. On the previous chest CT, lower trachea and proximal bronchi were widely patent with minimal secretions in the proximal right bronchus. A repeat chest CT might be considered for comparison with the previous study. Sagittal reformatted images show normal alignment of vertebral bodies and facets. No jumped facet or facet fracture. Normal craniocervical alignment. No prevertebral soft tissue swelling. No acute avulsion of the spinous processes. Spondylosis: Extensive facet degenerative spurring bilaterally. Moderate posterior disc/osteophyte complexes at C5-6 and C6-7 with moderate C5-6 spinal canal narrowing. Coronal reformatted images show normal atlantooccipital and atlantoaxial alignment. The base of the dens is intact as is the body of C2. Intact lateral masses. IMPRESSION: Negative for fracture or posttraumatic subluxation. Degenerative changes as described. Fluid in the trachea and bronchi, patchy right upper lobe infiltrate and left chest wall soft tissue emphysema. Consider chest CT for further evaluation. This exam was performed according to our departmental dose-optimization program, which includes automated exposure control, adjustment of the mA and/or kV according to patient size and/or use of iterative reconstruction technique. Total DLP equals 474.75 mGycm. Electronically signed by: Reed Cottrell MD 04/30/2019 9:20 AM [employer]
[2019-04-30 11:33] VITALS: BP 96/66; TEMP 97.4; O2SAT 95
== END 2019-04-30 11:34 ==
LOC: ER 08:03
DX: S09.90XA Unspecified injury of head, initial encounter (principal); S00.03XA Contusion of scalp, initial encounter; M47.812 Spondylosis without myelopathy or radiculopathy, cervical region; I48.91 Unspecified atrial fibrillation; J44.9 Chronic obstructive pulmonary disease, unspecified; I50.9 Heart failure, unspecified; I11.0 Hypertensive heart disease with heart failure; Z79.899 Other long term (current) drug therapy; Z79.01 Long term (current) use of anticoagulants; W18.30XA Fall on same level, unspecified, initial encounter; Y92.129 Unspecified place in nursing home as the place of occurrence of the external cause

== ENCOUNTER → 2019-05-01 | Outpatient (CLI) | payer MEDICARE | LOC: GT 08:45 | PROVIDERS: ATTEND Family Medicine | DX: B95.62 Methicillin resistant Staphylococcus aureus infection as the cause of diseases classified elsewhere (principal) ==

== ENCOUNTER 2019-08-31 15:23 | Emergency (ER) | payer MEDICARE ==
[2019-08-31] MEDS ORDERED: SODIUM CHLORIDE 0.9% (FLUSH) 10 ML SYG IV PRN (15:27)
--- NOTE | 2019-08-31 15:32 | ED.PDOC ---
History of Present Illness - General Chief Complaint: Trauma Stated Complaint: Altered Mental Status, Fall Time Seen by Provider: 08/31/19 15:26 Source: EMS, [facility] records - History of Present Illness Initial Comments: 74 yo male with PMH of A. fib, dementia, BPH who is brought in by EMS from [facility] for chief complaint of fall and altered mental status. Patient reportedly had a fall yesterday at 1730 which was unwitnessed but sustained injuries to the left periorbital region and the left arm. He was not evaluated at that time. Today he was reported to have gradually worsening altered mental status. Usually patient is awake and alert and able to carry out simple conversation and answer questions. However today he has not been talking or answering questions and appears confused. EMS reported stable vitals in route. Noted abrasion injury to the left periorbital region and some scattered bruising to the left upper extremity. On arrival here patient awake and alert and follows only very simple commands. Unable to obtain any meaningful history. Not answering simple yes/no questions. Tracking with his eyes and noted to spontaneously move all extremities. Allergies/Adverse Reactions: Allergies NO KNOWN ALLERGY Allergy (Verified 08/31/19 15:44) Home Medications: Ambulatory Orders RX: Dabigatran Etexilate Mesylate [Pradaxa] 150 mg PO BID 11/07/18 RX: Ferrous Sulfate 325 mg PO DAILY 11/07/18 RX: Methadone HCl [Methadone] 20 mg PO BID 11/07/18 RX: Mirabegron [Myrbetriq] 50 mg PO DAILY 11/07/18 RX: Simvastatin [Zocor] 20 mg PO BEDTIME 11/07/18 RX: Tizanidine HCl [Zanaflex] 2 mg PO QID PRN 11/07/18 RX: Gabapentin 800 mg PO TID 11/12/18 RX: Potassium Chloride [K-Tab] 20 meq PO DAILY #7 tab 11/14/18 RX: Cholecalciferol [Decara] 5,000 unit PO DAILY 02/27/19 RX: Oxycodone HCl 60 mg PO Q4H PRN 02/27/19 RX: Tamsulosin [Flomax] 0.4 mg PO QD 02/27/19 RX: Budesonide Nebs [Pulmicort Respules] 0.5 mg NEB BID 03/20/19 RX: Diltiazem HCl Coated Beads [Diltiazem Cd] 240 mg PO DAILY 03/20/19 RX: Docusate Sodium [Colace] 100 mg PO BID 03/20/19 RX: Finasteride [Proscar] 5 mg PO DAILY 03/20/19 RX: Fluticasone Prop 0.05% Nasal [Flonase Nasal [place]] 2 spray BNAS BID 03/20/19 RX: Sodium Chloride 1 gm PO QID 03/20/19 RX: guaiFENesin ER TAB [Mucinex Tab] 1,200 mg PO BID tab 03/22/19 Hydrocortisone [Cortef] 15 mg PO DAILY 04/18/19 Pantoprazole Tablet [Protonix] 40 mg PO ACBK 04/18/19 RX: Cefdinir 300 mg PO BID 04/18/19 Review of Systems - Review of Systems Review of Systems: 08/31/19 15:32 Unable to obtain given altered mental status Past Medical History (General) - Patient Medical History Hx Seizures: No Hx Stroke: No Hx Asthma: No Hx of COPD: Yes Hx Cardiac Disorders: Yes - A-fib, arrhythmias Hx Congestive Heart Failure: Yes Hx Pacemaker: No Hx Hypertension: Yes Hx Diabetes: No Hx Cancer: No Hx MRSA: No - Vaccination History Hx Tetanus, Diphtheria Vaccination: No Hx Influenza Vaccination: Yes Hx Pneumococcal Vaccination: Yes - Social History Hx Tobacco Use: No Hx Alcohol Use: Yes Hx Substance Use: No Hx Substance Use Treatment: No Hx Physical Abuse: No Hx Emotional Abuse: No Family Medical History - Family History Father Family History: Unknown Living Status: Hx Family Cancer: Yes - lung Mother Hx Family Congestive Heart Failure: Yes Physical Exam - Physical Exam General Appearance: Alert, No apparent distress, Other - Approximately 2 x 2 centimeter abrasion to the left periorbital region without bony deformity Eye Exam: bilateral normal Ears, Nose, Throat: normal ENT inspection, normal pharynx Neck: non-tender, other - C-collar in place Respiratory: lungs clear, normal breath sounds, no respiratory distress, no accessory muscle use Cardiovascular/Chest: normal peripheral pulses, regular rate, rhythm, no gallop, no JVD, no murmur Peripheral Pulses: radial,right: 2+, radial,left: 2+ Gastrointestinal/Abdominal: non tender, soft, no organomegaly Back Exam: normal inspection, no CVA tenderness, no vertebral tenderness Extremity: other - Left upper extremity with scattered ecchymosis, no deformity noted. Some moderate range of motion spontaneously, does not appear to resist passive range of motion. No bony tenderness to palpation appreciated. Neurologic: no motor/sensory deficits, alert, other - Awake and alert but not responsive to questions, follows only very basic commands occasionally. No noted focal neurological deficits. He does spontaneously move all extremities. Skin Exam: warm/dry Lymphatic: no adenopathy Progress - Progress Progress: 08/31/19 15:35 Altered mental status, ground-level fall -Consider injuries: Skull fracture, C-spine fracture, intracranial hemorrhage, pelvic fracture, left upper extremity fracture, hip fracture -Consider mechanism: Mechanical, organic, ACS, infection, metabolic, iatrogenic, other -Patient stable, NAD but altered. Afebrile -Obtain CT imaging of the head, neck, maxillofacial. Obtain x-ray imaging of the chest, pelvis, left upper extremity. Obtain blood work and urine specimen. Cardiac monitoring 08/31/19 17:51 -Finally able to obtain CT imaging. It was very difficult to get the patient to remain still enough for CT scan and required a total of Ativan 4 mg IV and Versed 4 mg IV and gentle brief restraints in order to obtain appropriate imaging. On immediate review of the CT scan of his head I am concerned about possible subacute bilateral subdural hematomas with slight midline shift to the left. Awaiting stat radiology read. 08/31/19 18:45 -Verbal radiology report received. Patient does have bilateral subdural hematomas, the right is 3 cm wide, the left is 1.7 cm wide. These are of varying age and there is some evidence of acute hemorrhage. There is also mass- effect on the right ventricle and midline shift from right to left of 8 mm. No acute processes noted on CT scans of the C-spine or maxillofacial. Unable to cl ear C-spine given altered mental status. -Discussed with ED physician at [facility] in [place] who accepts the patient for emergent transfer. Will go via helicopter. I have spoken with the patient's and daughter at length regarding all the findings and need for emergent transfer to higher level of care for emergent neurosurgery consultation and ICU availability. They have agreed for elective intubation to stabilize and secure the airway for transfer. -X-ray imaging of the pelvis and right hip also demonstrate subcapital right femoral neck fracture with superior displacement of the distal segment. X-ray imaging otherwise reveals no acute fractures or processes. -Labs reviewed - INR 1.2, PTT 30, H/H 10.6/32, PLTs 225,000 MD Harvey Rutledge #[id number] 08/31/19 15:27 IV Care:Saline Lock per Protoc QSHIFT Telemetry .ONCE Sodium Chloride 0.9% (Flush) [Saline Flush Syringe] 10 ml IV PRN PRN URINALYSIS Stat 08/31/19 15:30 EKG STAT 09/01/19 09:00 Pulse Ox Daily Laboratory Results - last 24 hr 08/31/19 08/31/19 08/31/19 15:25 15:25 15:25 WBC 8.6 RBC 4.21 L Hgb 10.6 L Hct 32.7 L MCV 77.8 L MCH 25.1 L MCHC 32.3 L RDW 17.2 H Plt Count 225 MPV 8.9 Absolute Neuts (auto) 7.40 H Absolute Lymphs (auto) 0.50 L Absolute Monos (auto) 0.70 Absolute Eos (auto) 0.00 Absolute Basos (auto) 0.00 Neutrophils % 85.7 H Lymphocytes % 5.8 L Monocytes % 8.0 Eosinophils % 0.1 L Basophils % 0.4 PT 12.0 H INR 1.21 H PTT (SP) 30.4 Sodium 136 Potassium 3.2 L Chloride 100 L Carbon Dioxide 29 Anion Gap 10.2 L BUN 12 Creatinine 0.60 BUN/Creatinine Ratio 20.0 Random Glucose 125 H Serum Osmolality 273.2 L Lactic Acid Calcium 8.4 Total Bilirubin 0.5 AST 14 ALT 9 L Alkaline Phosphatase 55 Ammonia B-Natriuretic Peptide 451.0 H* Serum Total Protein 6.4 Albumin 2.5 L Globulin 3.9 H Albumin/Globulin Ratio 0.6 L 08/31/19 08/31/19 15:44 15:44 WBC RBC Hgb Hct MCV MCH MCHC RDW Plt Count MPV Absolute Neuts (auto) Absolute Lymphs (auto) Absolute Monos (auto) Absolute Eos (auto) Absolute Basos (auto) Neutrophils % Lymphocytes % Monocytes % Eosinophils % Basophils % PT INR PTT (SP) Sodium Potassium Chloride Carbon Dioxide Anion Gap BUN Creatinine BUN/Creatinine Ratio Random Glucose Serum Osmolality Lactic Acid 1.1 Calcium Total Bilirubin AST ALT Alkaline Phosphatase Ammonia 15 B-Natriuretic Peptide Serum Total Protein Albumin Globulin Albumin/Globulin Ratio 08/31/19 18:48 - EKG/XRAY/CT EKG: Atrial, Fibrillation - With occasional PVCs, heart rate 70, no ST elevations noted, no Q waves, slight left axis deviation, intervals normal, compared to 04/17/2019 EKG A. fib with RVR is now resolved. XRAY: chest - Per my read, chronic calcified granulomas in the right perihilar region which appear unchanged. Also possible small atelectasis versus infiltrate in the left lower lobe. No other acute processes noted Procedures - Intubation Time of Intubation: 19:16 Intubation Method: orotracheal Tube Size (cm): 7.5 Medications: Succinylcholine - 120 mg, Versed - 5 mg Breath Sounds after Intubation: equal Intubation Complications: no complications Post Intubation Xray: Yes Departure - Departure Clinical Impression: Subdural hematoma, post-traumatic, Fracture of femoral neck, closed Time of Disposition: 18:44 Disposition: Transfer to Hospital Condition: Serious Departure Forms: ED Discharge - Pt. Copy, Patient Portal Self Enrollment Referrals: Chilango Fink MD [Primary Care Provider] - 1-2 Weeks Home Medications: Ambulatory Orders RX: Dabigatran Etexilate Mesylate [Pradaxa] 150 mg PO BID 11/07/18 RX: Ferrous Sulfate 325 mg PO DAILY 11/07/18 RX: Methadone HCl [Methadone] 20 mg PO BID 11/07/18 RX: Mirabegron [Myrbetriq] 50 mg PO DAILY 11/07/18 RX: Simvastatin [Zocor] 20 mg PO BEDTIME 11/07/18 RX: Tizanidine HCl [Zanaflex] 2 mg PO QID PRN 11/07/18 RX: Gabapentin 800 mg PO TID 11/12/18 RX: Potassium Chloride [K-Tab] 20 meq PO DAILY #7 tab 11/14/18 RX: Cholecalciferol [Decara] 5,000 unit PO DAILY 02/27/19 RX: Oxycodone HCl 60 mg PO Q4H PRN 02/27/19 RX: Tamsulosin [Flomax] 0.4 mg PO QD 02/27/19 RX: Budesonide Nebs [Pulmicort Respules] 0.5 mg NEB BID 03/20/19 RX: Diltiazem HCl Coated Beads [Diltiazem Cd] 240 mg PO DAILY 03/20/19 RX: Docusate Sodium [Colace] 100 mg PO BID 03/20/19 RX: Finasteride [Proscar] 5 mg PO DAILY 03/20/19 RX: Fluticasone Prop 0.05% Nasal [Flonase Nasal [place]] 2 spray BNAS BID 03/20/19 RX: Sodium Chloride 1 gm PO QID 03/20/19 RX: guaiFENesin ER TAB [Mucinex Tab] 1,200 mg PO BID tab 03/22/19 Hydrocortisone [Cortef] 15 mg PO DAILY 04/18/19 Pantoprazole Tablet [Protonix] 40 mg PO ACBK 04/18/19 RX: Cefdinir 300 mg PO BID 04/18/19 Critical Care Note - Critical Care Note Total Time (mins): 60 Comments: Critical Care Time: Upon my evaluation, this patient had a high probability of life-threatening deterioration due to bilateral subdural hematomas, which required my direct attention, intervention, and management. I have provided 60 minutes of critical care time exclusive of separately billable procedures. My time included: direct patient care, review of labs and radiology, obtaining history from and counseling the patient and/or the family, discussion with consultants and/or other medical personnel, documentation, and monitoring for potential decompensation. Transfer to Outside Facility - Transfer Information Decision to Transfer Date: 08/31/19 Decision to Transfer Time: 18:30 Reason for Transfer: required specialist not available - neurosurgery Accepting Provider:: Dr. Sotomayor Accepting Facility: [facility]
[2019-08-31] MEDS ORDERED: MIDAZOLAM INJ 5 MG/5 ML VIAL IV ONE ×4 (16:54→19:36)
--- NOTE | 2019-08-31 17:01 | RAD ---
EXAM DESCRIPTION: Chest,1 View CLINICAL HISTORY: GLF yesterday, AMS COMPARISON: 18 April 2019 TECHNIQUE: AP portable chest FINDINGS: Large calcified granulomas are observed about the right hilum. A poor inspiratory effect is noted. Left basilar atelectatic type infiltrate is noted. The heart is within range of normal. No pleural fluid is seen. IMPRESSION: Minimal right basilar atelectatic type infiltrate is observed. Electronically signed by: David Ye MD 08/31/2019 4:59 PM CDT
--- NOTE | 2019-08-31 17:04 | RAD ---
EXAM DESCRIPTION: Pelvis CLINICAL HISTORY: GLF yesterday COMPARISON: None. TECHNIQUE: AP pelvis FINDINGS: A transcervical right femoral neck fracture is observed. There is superior displacement of the distal fracture fragment. Mild degenerative changes are observed in the left hip. No pelvic fracturing is detected. Mild degenerative changes are seen in the pubic symphysis. IMPRESSION: A subcapital right femoral neck fracture is observed. Electronically signed by: David Ye MD 08/31/2019 5:02 PM CDT
--- NOTE | 2019-08-31 18:07 | RAD ---
EXAM DESCRIPTION: Humerus,Left CLINICAL HISTORY: GLF yesterday, LUE pain COMPARISON: None. TECHNIQUE: 2 views left FINDINGS: Soft tissue swelling is observed above the elbow. No fracture is detected. No foreign body is seen. IMPRESSION: Soft tissue swelling is observed without evidence of fracturing. Electronically signed by: David Ye MD 08/31/2019 6:05 PM CDT
--- NOTE | 2019-08-31 18:08 | RAD ---
EXAM DESCRIPTION: Forearm,Left CLINICAL HISTORY: GLF yesterday, LUE pain COMPARISON: None. TECHNIQUE: 2 views left FINDINGS: Mild soft tissue swelling is observed about the elbow. No fracture is detected. IMPRESSION: Soft tissue swelling is observed without evidence of fracturing. Electronically signed by: David Ye MD 08/31/2019 6:07 PM CDT
--- NOTE | 2019-08-31 18:09 | RAD ---
EXAM DESCRIPTION: Hand,Left 3 Views CLINICAL HISTORY: GLF yesterday, LUE pain COMPARISON: None. TECHNIQUE: 3 views left FINDINGS: Distal interphalangeal joint arthritis is observed throughout the hand. Osteopenia is noted. No fracturing is detected. IMPRESSION: Mild degenerative changes are observed. No fracturing is detected. Electronically signed by: David Ye MD 08/31/2019 6:08 PM CDT
--- NOTE | 2019-08-31 18:19 | CT ---
PROCEDURE: Cervical Spine CLINICAL HISTORY: 74 years Male GLF yesterday, AMS COMPARISON: None. TECHNIQUE: Contiguous axial images obtained through the cervical spine without IV contrast. Coronal and sagittal reformatted images obtained. This exam was performed according to our department optimization program which includes automated exposure control, adjustment of the mA and/or kv according to patient size and/or use of iterative reconstruction technique. FINDINGS: Vertebral body alignment is unremarkable. No acute fractures. C3-4: Severe right neural foraminal stenosis. C4-5: Facet arthropathy particularly on the left. There is severe lateral neural foraminal stenosis. C5-6: Generalized bulging of the disc and osteophytosis with severe bilateral neural foraminal stenosis. C6-7: Severe bilateral neural foraminal stenosis. C7-T1: Severe right and moderate left neural foraminal stenosis. IMPRESSION: No acute cervical spinal fracture is identified. Multilevel degenerative change Electronically signed by: Ayana Slater MD 08/31/2019 6:18 PM CDT
--- NOTE | 2019-08-31 18:27 | CT ---
PROCEDURE: Head CLINICAL HISTORY: 74 years Male GLF yesterday, AMS COMPARISON: 04/30/2019. TECHNIQUE: Contiguous axial CT images obtained through the brain without IV contrast. This exam was performed according to our department optimization program which includes automated exposure control, adjustment of the mA and/or kv according to patient size and/or use of iterative reconstruction technique. FINDINGS: The ventricles and sulci are effaced. There does appear to be underlying age-related atrophy as noted in the left temporal lobe. Microvascular ischemic changes. There are bilateral subdural fluid collections consistent with subdural hematomas which have hemorrhage of varying age. Hematoma on the right measures 3 cm maximum over the parietal region and hematoma on the left measures 1.7 cm. There is right to left shift measuring 8 mm. The basilar cisterns are small and there is effacement of the third ventricle which results in some dilatation of the left temporal horn. No mass lesions. Atherosclerotic calcifications. No fluid or significant mucosal thickening in the visualized paranasal sinuses. No depressed calvarial fractures. IMPRESSION: Large bilateral subdural hematomas with hemorrhage of varying age. Hematoma on the right measures 3 cm and on the left 1.7 cm. These were not present on the examination from April There is sulcal and ventricular effacement with 8 mm of [id number] shift Compression of the third ventricle results in developing dilatation of the left temporal horn Dr. Galvez was called and notified of the findings at 6:20 PM Central time. Generalized atrophy with microvascular ischemic changes. Electronically signed by: Ayana Slater MD 08/31/2019 6:25 PM CDT
--- NOTE | 2019-08-31 18:31 | CT ---
EXAM DESCRIPTION: Maxillofacial CLINICAL HISTORY: 74 years Male GLF yesterday, AMS COMPARISON: None. TECHNIQUE: Contiguous axial images obtained through the maxillofacial region without IV contrast. Reformatted images obtained. This exam was performed according to our department optimization program which includes automated exposure control, adjustment of the mA and/or kv according to patient size and/or use of iterative reconstruction technique. FINDINGS: There are large bilateral subdural hematomas with sulcal and ventricular effacement and right to left shift. These findings are reported on the CT of the head. Please see the dictation for further delineation of findings. There are lucencies surrounding decaying teeth. This is retention left maxillary sinus. There is an impacted molar along the lateral wall of the maxillary sinus on the left with a surrounding cyst which results in some bony remodeling. Findings are suspicious for dentigerous cyst. Pterygoid plates, zygomatic arches, nasal bone and nasal septum appear intact. No acute orbital fracture is noted. No facial bone fractures are identified. IMPRESSION: No facial bone fractures are identified. Findings most consistent with impacted molar in the right maxilla with surrounding dentigerous cyst resulting in bony remodeling. This was present on the previous examination and appears similar to sinus films from 2012 Extensive dental decay Electronically signed by: Ayana Slater MD 08/31/2019 6:30 PM CDT
--- NOTE | 2019-08-31 18:32 | RAD ---
EXAM DESCRIPTION: Hip,Right 2 Views CLINICAL HISTORY: 74 years Male GLF, right hip deformity on pelvis XR COMPARISON: None. TECHNIQUE: RIGHT hip, two views FINDINGS: There is a subcapital fracture of the right femoral neck with superior and lateral displacement of the distal fracture fragment. Some adjacent bone fragmentation is noted. IMPRESSION: Significantly displaced subcapital right femoral neck fracture Electronically signed by: Ayana Slater MD 08/31/2019 6:31 PM CDT
[2019-08-31] MEDS ORDERED: fentaNYL CITRATE INJ 50 MCG/ML 2 ML AMP IV ONE (18:41)
[2019-08-31] MEDS ORDERED: ETOMIDATE INJECTION 2 MG/ML 20ML VIAL IV ONE (18:41)
[2019-08-31] MEDS ORDERED: SUCCINYLCHOLINE CHLORIDE 200 MG/10 ML VIAL IV ONE (18:41)
[2019-08-31] MEDS ORDERED: SUCCINYLCHOLINE CHLORIDE 200 MG/10 ML VIAL ONE (18:49)
[2019-08-31 19:11] VITALS: TEMP 98
[2019-08-31] MEDS ORDERED: VECURONIUM BROMIDE 10 MG VIAL IV ONE (19:17)
[2019-08-31] MEDS ORDERED: WATER FOR INJ 10 ML VIAL INJ ONE (19:40)
--- NOTE | 2019-08-31 20:00 | RAD ---
EXAM DESCRIPTION: Chest, x-ray 1 View CLINICAL HISTORY: post-intubation COMPARISON: Same day earlier time FINDINGS: There has been interval placement of an endotracheal tube with the tip ending approximately 2.3 cm above the level of the [place]. There are calcified mediastinal and hilar lymph nodes. The aorta is tortuous. There is atherosclerosis. There is no pneumothorax. There is no new confluent airspace disease. IMPRESSION: Interval placement of an endotracheal tube with the tip ending approximately 2.3 cm above the level of the [place]aac. Electronically signed by: Papi Miller MD 08/31/2019 7:59 PM CDT
[2019-08-31 20:15] VITALS: BP 148/79; O2SAT 100
== END 2019-08-31 19:55 | disposition short-term general hospital (02) ==
LOC: ER 15:23
DX: S06.5X9A Traumatic subdural hemorrhage with loss of consciousness of unspecified duration, initial encounter (principal); S72.001A Fracture of unspecified part of neck of right femur, initial encounter for closed fracture; S00.212A Abrasion of left eyelid and periocular area, initial encounter; I48.91 Unspecified atrial fibrillation; I11.0 Hypertensive heart disease with heart failure; I50.9 Heart failure, unspecified; J44.9 Chronic obstructive pulmonary disease, unspecified; F03.90 Unspecified dementia, unspecified severity, without behavioral disturbance, psychotic disturbance, mood disturbance, and anxiety; W19.XXXA Unspecified fall, initial encounter; Y92.129 Unspecified place in nursing home as the place of occurrence of the external cause
CPT/HCPCS: 31500; 36415; 70450; 70486; 71045; 72125; 72170; 73060; 73090; 73130; 73502; 80053; 82140; 83605; 83880; 84484; 85025; 85610; 85730; 93005; 94760; 94770; A4216; J0330; J2060; J2250; J3010